=== PATIENT | female | born 1965 | race Caucasian/White ===

== ENCOUNTER 2016-07-08 18:18 | Inpatient (IN) | payer OTHER ==
[2016-07-08] VITALS (9 sets, daily range): BP systolic 123–157; BP diastolic 75–103; PULSE 98–112; RESP 14–22; TEMP 97.6–98.6; O2SAT 98–100
[~2016-07-08] VITALS: Ht 167.6 cm; Wt 58.7 kg
[~2016-07-08 18:18] MED LIST: ESCI10TA PO; PRIL20CA PO; QUET200 PO; QUET25 PO; TRAZ100 PO
[2016-07-08] MEDS ORDERED: PROPOFOL 1000 MG/100 ML INJ 100 ML ONE (18:37)
--- NOTE | 2016-07-08 18:38 | PD ---
HPI Chief Complaint: Altered Mental Status Time Seen by Provider: 18:30 Travel History International Travel<30 days: No Contact w/Intl Traveler<30days: No Traveled to known affect area: No History of Present Illness HPI Niesha jackson was brought in by EVAC with AMS. Pt was found lying on bench outside [facility]. Pt unresponsive to voice or sternal rub. Did not withdraw from pain in extremities. No signs of trauma but cervical spine collar placed by fire as precaution. Pt given 0.4mg of narcan by EVAC with no response. I gave another 0.4mg of narcan and still with no response. Pt emergently intubated in the ED. PFSH Past Medical History Medical History: Unable to Obtain Tetanus Vaccination: Unknown Past Surgical History Surgical History: Unable to Obtain Social History Alcohol Use: Yes Tobacco Use: Yes Substance Use: No Allergies-Medications (Allergen,Severity, Reaction): Coded Allergies: UNOBTAINABLE (Unverified , 07/08/16) Reported Meds & Prescriptions Reported Meds & Active Scripts Active Active Prescriptions or Reported Medications Unobtainable Review of Systems ROS Limitations: Unresponsive Physical Exam Narrative GENERAL: Unresponsive. +Alcohol on breath. SKIN: Warm and dry. HEAD: Atraumatic. Normocephalic. EYES: Pupils equal and round at 4mm bilaterally. ENT: No nasal bleeding or discharge. Mucous membranes pink and moist. NECK: Trachea midline. No JVD. CARDIOVASCULAR: Regular rate and rhythm. No murmur appreciated. RESPIRATORY: No accessory muscle use. Clear to auscultation. Breath sounds equal bilaterally. GASTROINTESTINAL: Abdomen soft, non-tender, nondistended. No rebound tenderness or guarding. MUSCULOSKELETAL: No obvious deformities. No clubbing. No cyanosis. No edema. NEUROLOGICAL: Unresponsive but teeth is clenching down. GCS 3. Data Data Last Documented VS Vital Signs Date Time Temp Pulse Resp B/P Pulse Ox O2 Delivery O2 Flow Rate FiO2 07/08/16 20:31 100 40 07/08/16 18:20 97.6 112 16 152/96 Orders Electrocardiogram (07/08/16 18:31) Alcohol (Ethanol) (07/08/16 18:31) Ammonia (07/08/16 18:31) Complete Blood Count With Diff (07/08/16 18:31) Comprehensive Metabolic Panel (07/08/16 18:31) Creatine Kinase (Cpk) (07/08/16 18:31) Drug Screen, Random Urine (07/08/16 18:31) Prothrombin Time / Inr (Pt) (07/08/16 18:31) Act Partial Throm Time (Ptt) (07/08/16 18:31) Salicylates (Aspirin) (07/08/16 18:31) Troponin I (07/08/16 18:31) Tylenol (Acetaminophen) (07/08/16 18:31) Thyroid Stimulating Hormone (07/08/16 18:31) Lactic Acid Sepsis Protocol (07/08/16 18:31) Urinalysis - C+S If Indicated (07/08/16 18:31) Arterial Blood Gas (Abg) (07/08/16 18:31) Blood Culture (07/08/16 18:31) Chest, Single Ap (07/08/16 18:31) Ct Brain W/O Iv Contrast(Rout) (07/08/16 18:31) Blood Glucose (07/08/16 18:31) Ecg Monitoring (07/08/16 18:31) Iv Access Insert/Monitor (07/08/16 18:31) Oximetry (07/08/16 18:31) Ct Cerv Spine W/O Contrast (07/08/16 ) Propofol 1000 Mg/100 Ml Inj (Diprivan 10 (07/08/16 18:37) Naloxone Inj (Narcan Inj) (07/08/16 18:53) Etomidate Inj (Amidate Inj) (07/08/16 18:53) Succinylcholine Inj (Quelicin Inj) (07/08/16 18:53) Succinylcholine Inj (Quelicin Inj) (07/08/16 19:00) Etomidate Inj (Amidate Inj) (07/08/16 19:00) Naloxone Inj (Narcan Inj) (07/08/16 19:00) Urinary Catheter Insert/Apply (07/08/16 18:59) Glen-Gastric Tube Insert/Mon (07/08/16 18:59) Restraints Non-Violent MAXIMO.Q3H (07/08/16 18:59) Propofol 1000 Mg/100 Ml Inj (Diprivan 10 (07/08/16 19:00) ^ Infusion (07/08/16 18:59) RASS (07/08/16 18:59) Neurological Rass Scale MAXIMO.Q2H (07/08/16 18:59) Sodium Chlor 0.9% 1000 Ml Inj (Ns 1000 M (07/08/16 19:15) Urine Culture (07/08/16 18:35) Admit Order (Ed Use Only) (07/08/16 20:48) Labs Laboratory Tests Test 07/08/16 07/08/16 18:35 18:44 White Blood Count 9.5 TH/MM3 Red Blood Count 4.58 MIL/MM3 Hemoglobin 12.4 GM/DL Hematocrit 37.5 % Mean Corpuscular Volume 82.0 FL Mean Corpuscular Hemoglobin 27.0 PG Mean Corpuscular Hemoglobin 33.0 % Concent Red Cell Distribution Width 20.2 % Platelet Count 442 TH/MM3 Mean Platelet Volume 6.7 FL Neutrophils (%) (Auto) 57.1 % Lymphocytes (%) (Auto) 35.0 % Monocytes (%) (Auto) 5.2 % Eosinophils (%) (Auto) 2.2 % Basophils (%) (Auto) 0.5 % Neutrophils # (Auto) 5.4 TH/MM3 Lymphocytes # (Auto) 3.3 TH/MM3 Monocytes # (Auto) 0.5 TH/MM3 Eosinophils # (Auto) 0.2 TH/MM3 Basophils # (Auto) 0.0 TH/MM3 CBC Comment DIFF FINAL Differential Comment Prothrombin Time 11.4 SEC Prothromb Time International 1.0 RATIO Ratio Activated Partial 25.0 SEC Thromboplast Time Urine Color YELLOW Urine Turbidity CLEAR Urine pH 6.0 Urine Specific [place] 1.012 Urine Protein 30 mg/dL Urine Glucose (UA) NEG mg/dL Urine Ketones NEG mg/dL Urine Occult Blood NEG Urine Nitrite NEG Urine Bilirubin NEG Urine Urobilinogen LESS THAN 2.0 MG/DL Urine Leukocyte Esterase SMALL Urine WBC 4 /hpf Urine Bacteria RARE /hpf Microscopic Urinalysis Comment CATH-CULTURE IND Sodium Level 141 MEQ/L Potassium Level 3.4 MEQ/L Chloride Level 106 MEQ/L Carbon Dioxide Level 21.8 MEQ/L Anion Gap 13 MEQ/L Blood Urea Nitrogen 5 MG/DL Creatinine 0.67 MG/DL Estimat Glomerular Filtration 76 ML/MIN Rate Random Glucose 108 MG/DL Lactic Acid Level 3.8 mmol/L Calcium Level 7.2 MG/DL Protein Corrected Calcium 7.4 MG/DL Total Bilirubin 0.1 MG/DL Aspartate Amino Transf 44 U/L (AST/SGOT) Alanine Aminotransferase 38 U/L (ALT/SGPT) Alkaline Phosphatase 91 U/L Ammonia 38 MCMOL/L Total Creatine Kinase 153 U/L Troponin I LESS THAN 0.02 NG/ML Total Protein 6.8 GM/DL Albumin 3.1 GM/DL Thyroid Stimulating Hormone 1.040 uIU/ML 3rd Gen Salicylates Level 3.8 MG/DL Urine Opiates Screen NEG Acetaminophen Level LESS THAN 2.0 MCG/ML Urine Barbiturates Screen NEG Urine Amphetamines Screen NEG Urine Benzodiazepines Screen NEG Urine Cocaine Screen NEG Urine Cannabinoids Screen NEG Ethyl Alcohol Level 465 MG/DL Blood Gas Puncture Site LT RADIAL Blood Gas Patient Temperature 98.6 Blood Gas HCO3 20 mmol/L Blood Gas Base Excess -4.6 mmol/L Blood Gas Oxygen Saturation 80 % Arterial Blood pH 7.32 Arterial Blood Partial 41 mmHg Pressure CO2 Arterial Blood Partial 72 mmHG Pressure O2 Arterial Blood Oxygen Content 13.5 Vol % Arterial Blood 7.6 % Carboxyhemoglobin Arterial Blood Methemoglobin 2.0 % Blood Gas Hemoglobin 12.0 G/DL Oxygen Delivery Device VENTILATOR Blood Gas Ventilator Setting AC/14/450/PEEP5 Blood Gas Inspired Oxygen 40 % MDM Medical Decision Making Medical Screen Exam Complete: Yes Emergency Medical Condition: Yes Interpretation(s) EKG: Sinus tachycardia at 112bpm. Normal axis. QRS narrow. QTc 398ms. Differential Diagnosis Polysubstance abuse vs. alcohol intoxication vs. ICH Narrative Course Niesha Jackson brought in with AMS by EVAC, emergently intubated in the ED. Pt had half bottle of purell on her and smelled of alcohol. Pt was initially mildly tachycardic. She was given narcan 0.4mg by EVAC and again in the ED with no response. No response to painful stimuli. +Alcohol on breath. Pt was clenching her teeth so RSI was used to intubate. Pt was seen at end of my shift and sign out to the next team to follow up labs and admit to ICU. Critical Care Narrative Aggregate critical care time was 35 minutes. Time to perform other separately billable procedures was not included in the critical care time. My time did not include minutes spent treating any other patients simultaneously or on activities that did not directly contribute to the patient's treatment. The services I provided to this patient were to treat and/or prevent clinically significant deterioration that could result in: cardiovascular collapse or . I provided critical care services requiring my management, as noted below: Chart data review, documentation time, medication orders and management, vital sign assessments/reviewing monitor data, ordering and reviewing lab tests, ordering and interpreting/reviewing x-rays and diagnostic studies, care of the patient and discussion of the patient with the admitting physicians. Procedures Procedure Narrative The patient was put in optimal position for the procedure. Rapid sequence intubation was initiated by me using 20 milligrams of etomidate IV and 100 milligrams of succinylcholine IV. The patient was intubated with a 7.5 cuffed endotracheal tube using glidescope. Oropharynx noted to be edematous and initially attempted with 8.0 ET tube but unsuccessful in passing the tube so 7.5 was used after. Tube placement was confirmed by visualization of the tube and balloon passing through the cords, capnometry and subsequent chest x-ray. Breath sounds were equal and well aerated bilaterally postintubation. No breath sounds over stomach. Patient tolerated procedure well. Scripts Unable to Obtain Active Prescriptions or Reported Meds Maribel Moon DO Jul 08, 2016 18:38
[2016-07-08] MEDS ORDERED: SUCCINYLCHOLINE CHLORIDE 200 MG/10 ML VIAL ONE (18:53)
[2016-07-08] MEDS ORDERED: NALOXONE HCL 0.4 MG/ML AMP ONE (18:53)
[2016-07-08] MEDS ORDERED: ETOMIDATE 20 MG/10 ML VIAL ONE (18:53)
[2016-07-08 18:56] LABS: BLOOD GAS BASE EXCESS -4.6 mmol/L (-2-2); BLOOD GAS CARBOXYHEMOGLOBIN 7.6 % (0-4); BLOOD GAS HCO3 20 mmol/L (22-26); BLOOD GAS O2 HGB SATURATION 80 % (90-100); BLOOD GAS OXYGEN CONTENT 13.5 Vol % (12.0-20.0); BLOOD GAS PCO2 41 mmHg (38-42); BLOOD GAS PO2 72 mmHG (61-120); TEMP CORR TO 98.6
[2016-07-08 18:57] LABS: CRITICAL VALUE YES; DRAW SITE LT RADIAL; FIO2 40 %; NUMBER OF ARTERIAL PUNCTURES 1; OXYGEN DEVICE VENTILATOR; STAT YES; ULNAR PULSE PRESENT; VENT SETTINGS AC/14/450/PEEP5
[2016-07-08] MEDS ORDERED: SUCCINYLCHOLINE CHLORIDE 200 MG/10 ML VIAL IV PUSH ONE (19:00)
[2016-07-08] MEDS ORDERED: ETOMIDATE 20 MG/10 ML VIAL IV PUSH ONE (19:00)
[2016-07-08] MEDS ORDERED: PROPOFOL 1000 MG/100 ML INJ 100 ML IV SCH (19:00)
[2016-07-08] MEDS ORDERED: NALOXONE HCL 0.4 MG/ML AMP IV PUSH ONE (19:00)
[2016-07-08] MEDS ORDERED: SODIUM CHLOR 0.9% 1000 ML INJ 1,000 ML IV ONE (19:15)
[2016-07-08 19:23] LABS: AUTOMATED NEUTROPHIL # 5.4 TH/MM3 (1.8-7.7); BASOPHIL % 0.5 % (0.0-2.0); EOSINOPHIL # 0.2 TH/MM3 (0-0.4); EOSINOPHIL % 2.2 % (0.0-4.0); HEMATOCRIT 37.5 % (35.0-46.0); HEMO FLAGS DIFF FINAL; LYMPHOCYTE # 3.3 TH/MM3 (1.0-4.8); MONO % 5.2 % (0.0-8.0); NEUT % 57.1 % (16.0-70.0); PLATELET COUNT 442 TH/MM3 (150-450); RED BLOOD COUNT 4.58 MIL/MM3 (4.00-5.30); RED CELL DISTRIBUTION WIDTH 20.2 % (11.6-17.2); WHITE BLOOD COUNT 9.5 TH/MM3 (4.0-11.0)
--- NOTE | 2016-07-08 19:32 | PD ---
Physical Exam Date Seen by Provider: Jul 08, 2016 Time Seen by Provider: 19:29 Narrative Patient is a unknown age female who presents to the emergency department after being found on a bench at [facility]. The patient did have a bottle of [place] hand sporting goods salesperson that was approximately half full on scene. Upon arrival the patient was intubated using etomidate and succinylcholine, was noted the patient had a slightly swollen oropharynx with a difficult intubation and also had chemosis of the eyes. The patient has has some spontaneous movement per nursing staff, however, does not result in pain. The patient is currently on propofol. No further information is obtainable. Patient was initially evaluated by Dr. Moon, please refer to the initial history, physical, diagnostic evaluation, and treatment modality plan. Data Data Last Documented VS Vital Signs Date Time Temp Pulse Resp B/P Pulse Ox O2 Delivery O2 Flow Rate FiO2 07/08/16 19:30 100 100 07/08/16 18:20 97.6 112 16 152/96 Orders Electrocardiogram (07/08/16 18:31) Alcohol (Ethanol) (07/08/16 18:31) Ammonia (07/08/16 18:31) Complete Blood Count With Diff (07/08/16 18:31) Comprehensive Metabolic Panel (07/08/16 18:31) Creatine Kinase (Cpk) (07/08/16 18:31) Drug Screen, Random Urine (07/08/16 18:31) Prothrombin Time / Inr (Pt) (07/08/16 18:31) Act Partial Throm Time (Ptt) (07/08/16 18:31) Salicylates (Aspirin) (07/08/16 18:31) Troponin I (07/08/16 18:31) Tylenol (Acetaminophen) (07/08/16 18:31) Thyroid Stimulating Hormone (07/08/16 18:31) Lactic Acid Sepsis Protocol (07/08/16 18:31) Urinalysis - C+S If Indicated (07/08/16 18:31) Arterial Blood Gas (Abg) (07/08/16 18:31) Blood Culture (07/08/16 18:31) Chest, Single Ap (07/08/16 18:31) Ct Brain W/O Iv Contrast(Rout) (07/08/16 18:31) Blood Glucose (07/08/16 18:31) Ecg Monitoring (07/08/16 18:31) Iv Access Insert/Monitor (07/08/16 18:31) Oximetry (07/08/16 18:31) Ct Cerv Spine W/O Contrast (07/08/16 ) Propofol 1000 Mg/100 Ml Inj (Diprivan 10 (07/08/16 18:37) Naloxone Inj (Narcan Inj) (07/08/16 18:53) Etomidate Inj (Amidate Inj) (07/08/16 18:53) Succinylcholine Inj (Quelicin Inj) (07/08/16 18:53) Succinylcholine Inj (Quelicin Inj) (07/08/16 19:00) Etomidate Inj (Amidate Inj) (07/08/16 19:00) Naloxone Inj (Narcan Inj) (07/08/16 19:00) Urinary Catheter Insert/Apply (07/08/16 18:59) Glen-Gastric Tube Insert/Mon (07/08/16 18:59) Restraints Non-Violent MAXIMO.Q3H (07/08/16 18:59) Propofol 1000 Mg/100 Ml Inj (Diprivan 10 (07/08/16 19:00) ^ Infusion (07/08/16 18:59) RASS (07/08/16 18:59) Neurological Rass Scale MAXIMO.Q2H (07/08/16 18:59) Sodium Chlor 0.9% 1000 Ml Inj (Ns 1000 M (07/08/16 19:15) Urine Culture (07/08/16 18:35) Labs Laboratory Tests Test 07/08/16 07/08/16 18:35 18:44 White Blood Count 9.5 TH/MM3 Red Blood Count 4.58 MIL/MM3 Hemoglobin 12.4 GM/DL Hematocrit 37.5 % Mean Corpuscular Volume 82.0 FL Mean Corpuscular Hemoglobin 27.0 PG Mean Corpuscular Hemoglobin 33.0 % Concent Red Cell Distribution Width 20.2 % Platelet Count 442 TH/MM3 Mean Platelet Volume 6.7 FL Neutrophils (%) (Auto) 57.1 % Lymphocytes (%) (Auto) 35.0 % Monocytes (%) (Auto) 5.2 % Eosinophils (%) (Auto) 2.2 % Basophils (%) (Auto) 0.5 % Neutrophils # (Auto) 5.4 TH/MM3 Lymphocytes # (Auto) 3.3 TH/MM3 Monocytes # (Auto) 0.5 TH/MM3 Eosinophils # (Auto) 0.2 TH/MM3 Basophils # (Auto) 0.0 TH/MM3 CBC Comment DIFF FINAL Differential Comment Prothrombin Time 11.4 SEC Prothromb Time International 1.0 RATIO Ratio Activated Partial 25.0 SEC Thromboplast Time Urine Color YELLOW Urine Turbidity CLEAR Urine pH 6.0 Urine Specific [place] 1.012 Urine Protein 30 mg/dL Urine Glucose (UA) NEG mg/dL Urine Ketones NEG mg/dL Urine Occult Blood NEG Urine Nitrite NEG Urine Bilirubin NEG Urine Urobilinogen LESS THAN 2.0 MG/DL Urine Leukocyte Esterase SMALL Urine WBC 4 /hpf Urine Bacteria RARE /hpf Microscopic Urinalysis Comment CATH-CULTURE IND Sodium Level 141 MEQ/L Potassium Level 3.4 MEQ/L Chloride Level 106 MEQ/L Carbon Dioxide Level 21.8 MEQ/L Anion Gap 13 MEQ/L Blood Urea Nitrogen 5 MG/DL Creatinine 0.67 MG/DL Estimat Glomerular Filtration 76 ML/MIN Rate Random Glucose 108 MG/DL Lactic Acid Level 3.8 mmol/L Calcium Level 7.2 MG/DL Protein Corrected Calcium 7.4 MG/DL Total Bilirubin 0.1 MG/DL Aspartate Amino Transf 44 U/L (AST/SGOT) Alanine Aminotransferase 38 U/L (ALT/SGPT) Alkaline Phosphatase 91 U/L Ammonia 38 MCMOL/L Total Creatine Kinase 153 U/L Troponin I LESS THAN 0.02 NG/ML Total Protein 6.8 GM/DL Albumin 3.1 GM/DL Thyroid Stimulating Hormone 1.040 uIU/ML 3rd Gen Salicylates Level 3.8 MG/DL Urine Opiates Screen NEG Acetaminophen Level LESS THAN 2.0 MCG/ML Urine Barbiturates Screen NEG Urine Amphetamines Screen NEG Urine Benzodiazepines Screen NEG Urine Cocaine Screen NEG Urine Cannabinoids Screen NEG Ethyl Alcohol Level 465 MG/DL Blood Gas Puncture Site LT RADIAL Blood Gas Patient Temperature 98.6 Blood Gas HCO3 20 mmol/L Blood Gas Base Excess -4.6 mmol/L Blood Gas Oxygen Saturation 80 % Arterial Blood pH 7.32 Arterial Blood Partial 41 mmHg Pressure CO2 Arterial Blood Partial 72 mmHG Pressure O2 Arterial Blood Oxygen Content 13.5 Vol % Arterial Blood 7.6 % Carboxyhemoglobin Arterial Blood Methemoglobin 2.0 % Blood Gas Hemoglobin 12.0 G/DL Oxygen Delivery Device VENTILATOR Blood Gas Ventilator Setting AC/14/450/PEEP5 Blood Gas Inspired Oxygen 40 % [facility] Medical Record Reviewed: Yes Supervised Visit with MINESH: No Interpretation(s) Last Impressions Head CT 07/08/161830 Signed Impressions: Service Date/Time: Friday, July 08, 2016 19:35 - CONCLUSION: No acute intracranial disease. Stanislaw Yanez MD Chest X-Ray 07/08/161 Signed Impressions: Service Date/Time: Friday, July 08, 2016 19:04 - CONCLUSION: Endotracheal tube 1 cm above the neville. Clear lungs. Stanislaw Yanez MD Cervical Spine CT 07/08/16 0000 Signed Impressions: Service Date/Time: Friday, July 08, 2016 19:35 - CONCLUSION: No acute fracture or subluxation. Minimal fracture along the superior endplate at T1 appears old. Stanislaw Yanez MD Laboratory Tests Test 07/08/16 07/08/16 18:35 18:44 White Blood Count 9.5 TH/MM3 Red Blood Count 4.58 MIL/MM3 Hemoglobin 12.4 GM/DL Hematocrit 37.5 % Mean Corpuscular Volume 82.0 FL Mean Corpuscular Hemoglobin 27.0 PG Mean Corpuscular Hemoglobin 33.0 % Concent Red Cell Distribution Width 20.2 % Platelet Count 442 TH/MM3 Mean Platelet Volume 6.7 FL Neutrophils (%) (Auto) 57.1 % Lymphocytes (%) (Auto) 35.0 % Monocytes (%) (Auto) 5.2 % Eosinophils (%) (Auto) 2.2 % Basophils (%) (Auto) 0.5 % Neutrophils # (Auto) 5.4 TH/MM3 Lymphocytes # (Auto) 3.3 TH/MM3 Monocytes # (Auto) 0.5 TH/MM3 Eosinophils # (Auto) 0.2 TH/MM3 Basophils # (Auto) 0.0 TH/MM3 CBC Comment DIFF FINAL Differential Comment Prothrombin Time 11.4 SEC Prothromb Time International 1.0 RATIO Ratio Activated Partial 25.0 SEC Thromboplast Time Urine Color YELLOW Urine Turbidity CLEAR Urine pH 6.0 Urine Specific [place] 1.012 Urine Protein 30 mg/dL Urine Glucose (UA) NEG mg/dL Urine Ketones NEG mg/dL Urine Occult Blood NEG Urine Nitrite NEG Urine Bilirubin NEG Urine Urobilinogen LESS THAN 2.0 MG/DL Urine Leukocyte Esterase SMALL Urine WBC 4 /hpf Urine Bacteria RARE /hpf Microscopic Urinalysis Comment CATH-CULTURE IND Sodium Level 141 MEQ/L Potassium Level 3.4 MEQ/L Chloride Level 106 MEQ/L Carbon Dioxide Level 21.8 MEQ/L Anion Gap 13 MEQ/L Blood Urea Nitrogen 5 MG/DL Creatinine 0.67 MG/DL Estimat Glomerular Filtration 76 ML/MIN Rate Random Glucose 108 MG/DL Lactic Acid Level 3.8 mmol/L Calcium Level 7.2 MG/DL Protein Corrected Calcium 7.4 MG/DL Total Bilirubin 0.1 MG/DL Aspartate Amino Transf 44 U/L (AST/SGOT) Alanine Aminotransferase 38 U/L (ALT/SGPT) Alkaline Phosphatase 91 U/L Ammonia 38 MCMOL/L Total Creatine Kinase 153 U/L Troponin I LESS THAN 0.02 NG/ML Total Protein 6.8 GM/DL Albumin 3.1 GM/DL Thyroid Stimulating Hormone 1.040 uIU/ML 3rd Gen Salicylates Level 3.8 MG/DL Urine Opiates Screen NEG Acetaminophen Level LESS THAN 2.0 MCG/ML Urine Barbiturates Screen NEG Urine Amphetamines Screen NEG Urine Benzodiazepines Screen NEG Urine Cocaine Screen NEG Urine Cannabinoids Screen NEG Ethyl Alcohol Level 465 MG/DL Blood Gas Puncture Site LT RADIAL Blood Gas Patient Temperature 98.6 Blood Gas HCO3 20 mmol/L Blood Gas Base Excess -4.6 mmol/L Blood Gas Oxygen Saturation 80 % Arterial Blood pH 7.32 Arterial Blood Partial 41 mmHg Pressure CO2 Arterial Blood Partial 72 mmHG Pressure O2 Arterial Blood Oxygen Content 13.5 Vol % Arterial Blood 7.6 % Carboxyhemoglobin Arterial Blood Methemoglobin 2.0 % Blood Gas Hemoglobin 12.0 G/DL Oxygen Delivery Device VENTILATOR Blood Gas Ventilator Setting AC/14/450/PEEP5 Blood Gas Inspired Oxygen 40 % Differential Diagnosis Differential diagnosis includes drug ingestion, opiate overdose, alcohol ingestion, intracranial hemorrhage, allergic reaction, hyponatremia, encephalopathy Narrative Course Patient was initially evaluated by the previous physician, Dr. Moon. Please refer to the initial history, physical, diagnostic evaluation, treatment modality plan. Poison control will be contacted in regards to the patient's possible hand sporting goods salesperson ingestion. CT of the brain is negative, CT cervical spine reveals old fracture and plate T1, most likely chronic. Alcohol level is elevated at 465, anion gap is normal at 13, lactic is elevated at 3.8. The patient is intubated with edema in the oropharynx and chemosis of the eyes. I discussed the patient with the on-call ship erector, Dr. Denny, who agrees with admission. Poison control will be contacted in regards to isopropyl alcohol ingestion Physician Communication Physician Communication I discussed the patient with Dr. Denny who agrees with admission. Diagnosis Primary Impression: Alcohol intoxication delirium Admitting Information Admitting Physician Requests: Admit Scripts Unable to Obtain Active Prescriptions or Reported Meds Condition: Critical Dawit Nolasco MD Jul 08, 2016 19:31
[2016-07-08 19:35] LABS: PROTHROMBIN TIME - PATIENT 11.4 SEC (9.8-11.6)
--- NOTE | 2016-07-08 19:38 | RADRPT ---
EXAM DATE/TIME: 07/08/2016 19:04 [facility] COMPARISON: No previous studies available for comparison. INDICATIONS : Post intubation. Patient found unresponsive. MEDICAL HISTORY : Unobtainable. SURGICAL HISTORY : Unobtainable. ENCOUNTER: Initial ACUITY: 1 day PAIN SCORE: Non-responsive. LOCATION: Bilateral chest FINDINGS: A single view of the chest demonstrates the lungs to be symmetrically aerated without evidence of mas s, infiltrate or effusion. Endotracheal tube with tip 1 cm above the neville. Nasogastric tube with t ip likely in stomach The cardiomediastinal contours are unremarkable. Osseous structures are intact. CONCLUSION: Endotracheal tube 1 cm above the neville. Clear lungs. Stanislaw Yanez MD on July 08, 2016 at 19:36 Board Certified Radiologist. This report was verified electronically.
[2016-07-08 19:40] LABS: BACTERIA, URINE RARE /hpf; BLOOD, URINE NEG (NEG); GLUCOSE,URINE NEG (NEG); KETONE, URINE NEG (NEG); NITRITE,URINE NEG (NEG); URINE COLOR YELLOW (YELLW/STRAW)
[2016-07-08 19:41] LABS: COMMENT (UR) CATH-CULTURE IND; CULTURE IF INDICATED CATH CULTURE IND
[2016-07-08 19:45] LABS: AMPHETAMINE, URINE NEG (NEG); BARBITURATES, URINE NEG (NEG); COCAINE, URINE NEG (NEG)
--- NOTE | 2016-07-08 19:45 | RADRPT ---
EXAM DATE/TIME: 07/08/2016 19:35 [facility] COMPARISON: No previous studies available for comparison. INDICATIONS : Found unresponsive RADIATION DOSE: 46.24 CTDIvol (mGy) MEDICAL HISTORY : Non-responsive. SURGICAL HISTORY : Non-responsive. ENCOUNTER: Initial ACUITY: 1 day PAIN SCALE: Non-responsive LOCATION: cranial TECHNIQUE: Multiple contiguous axial images were obtained of the head. Using automated exposure control and adj ustment of the mA and/or kV according to patient size, radiation dose was kept as low as reasonably a chievable to obtain optimal diagnostic quality images. FINDINGS: CEREBRUM: The ventricles are normal for age. No evidence of midline shift, mass lesion, hemorrhage or acute in farction. No extra-axial fluid collections are seen. POSTERIOR FOSSA: The cerebellum and brainstem are intact. The 4th ventricle is midline. The cerebellopontine angle i s unremarkable. EXTRACRANIAL: The visualized portion of the orbits is intact. SKULL: The calvaria is intact. No evidence of skull fracture. CONCLUSION: No acute intracranial disease. Stanislaw Yanez MD on July 08, 2016 at 19:44 Board Certified Radiologist. This report was verified electronically.
--- NOTE | 2016-07-08 20:03 | RADRPT ---
EXAM DATE/TIME: 07/08/2016 19:35 [facility] COMPARISON: No previous studies available for comparison. INDICATIONS : Found unresponsive. RADIATION DOSE: 42.99 CTDIvol (mGy) MEDICAL HISTORY : Non-responsive. SURGICAL HISTORY : Non-responsive. ENCOUNTER: Initial ACUITY: 1 day PAIN SCALE: Non-responsive LOCATION: neck TECHNIQUE: Volumetric scanning of the cervical spine was performed. Multiplanar reconstructions in the sagittal, coronal and oblique axial planes were performed. Using automated exposure control and adjustment o f the mA and/or kV according to patient size, radiation dose was kept as low as reasonably achievable to obtain optimal diagnostic quality images. FINDINGS: VERTEBRAE: Normal vertebral body height. No acute compression fracture. Minimal loss of height of T1 appears to be chronic. ALIGNMENT: No evidence of subluxation. CONCLUSION: No acute fracture or subluxation. Minimal fracture along the superior endplate at T1 appears old. Stanislaw Yanez MD on July 08, 2016 at 19:59 Board Certified Radiologist. This report was verified electronically.
[2016-07-08 20:14] LABS: BLOOD UREA NITROGEN 5 MG/DL (7-18)
[2016-07-08 20:15] LABS: ALKALINE PHOSPHATASE 91 U/L (45-117); ALT (GPT) 38 U/L (10-53); AST (GOT) 44 U/L (15-37); CHLORIDE 106 MEQ/L (98-107); GLOMERULAR FILTRATION RATE 76 ML/MIN (>89); POTASSIUM 3.4 MEQ/L (3.5-5.1); SODIUM (NA) 141 MEQ/L (136-145); TOTAL BILIRUBIN ADULT 0.1 MG/DL (0.2-1.0)
[2016-07-08 20:16] LABS: ACETAMINOPHEN LESS THAN 2.0 MCG/ML (10.0-30.0); ANION GAP 13 MEQ/L (5-15); BICARBONATE 21.8 MEQ/L (21.0-32.0); CREATINE KINASE 153 U/L (26-192)
[2016-07-08 20:19] LABS: CALCIUM-PROTEIN CORRECTED 7.4 MG/DL (8.5-10.1)
[2016-07-08 21:11] LABS: LACTIC ACID GHOST NOT REPORTABLE
[2016-07-08] MEDS ORDERED: MISCELLANEOUS NURSING INFORMATION XX SCH (21:30)
[2016-07-08] MEDS ORDERED: POTASSIUM CHLOR 40 MEQ PREMIX 100 ML IV PRN ×2 (21:30)
[2016-07-08] MEDS ORDERED: SODIUM CHLORIDE 0.9% FLUSH 5 ML FLUSH IV FLUSH PRN (21:30)
[2016-07-08] MEDS ORDERED: POTASSIUM CHLOR 20 MEQ PREMIX 100 ML IV PRN (21:30)
[2016-07-08] MEDS ORDERED: MAGNESIUM SULFATE INJ 4 GM in SODIUM CHLORIDE 0.9% INJ 92 ML IV PRN (21:30)
[2016-07-08] MEDS ORDERED: MAGNESIUM OXIDE 400 MG TAB PO PRN (21:30)
[2016-07-08] MEDS ORDERED: POTASSIUM PHOSPHATE INJ 30 MMOL in SODIUM CHLOR 0.9% 250 ML INJ 250 ML IV PRN (21:30)
[2016-07-08] MEDS ORDERED: SODIUM PHOSPHATE INJ 30 MMOL in SODIUM CHLOR 0.9% 250 ML INJ 240 ML IV PRN (21:30)
[2016-07-08] MEDS ORDERED: POTASSIUM CL 40 MEQ/30 ML LIQ UDC PO/TUBE PRN ×2 (21:30)
[2016-07-08] MEDS ORDERED: fentaNYL DRIP 250 ML IV SCH (21:30)
[2016-07-08] MEDS ORDERED: POTASSIUM PHOSPHATE MONOBASIC 500 MG TAB PO/TUBE PRN (21:30)
[2016-07-08] MEDS ORDERED: MAGNESIUM SULFATE INJ 2 GM in SODIUM CHLORIDE 0.9% INJ 96 ML IV PRN (21:30)
[2016-07-08] MEDS ORDERED: POTASSIUM PHOSPHATE MONOBASIC 500 MG TAB PO PRN (21:30)
[2016-07-08] MEDS ORDERED: CHLORHEXIDINE GLUCONATE 2 % 1 PACK (2 CLOTHS) TOP PRN (21:30)
[2016-07-08] MEDS ORDERED: RESP: ALBUTEROL 2.5 MG/IPRATROPIUM 0.5 MG NEB (PRN) INH (21:30)
[2016-07-08] MEDS ORDERED: ONDANSETRON HCL 4 MG/2 ML VIAL IV PRN (21:30)
[2016-07-08] MEDS ORDERED: DEXTROSE 50% IN WATER 50 ML VIAL(D50) IV PUSH PRN (21:30)
--- NOTE | 2016-07-08 21:30 | HHI.HP ---
HPI Service Critical Care Medicine Primary Care Physician Unknown Admission Diagnosis alcohol intoxication 465 alcohol level Diagnosis: Chief Complaint: altered mental status Travel History International Travel<30 Days: No Contact w/Intl Traveler <30 Da: No Traveled to Known Affected Are: No History of Present Illness This is a middle-aged female Niesha Jackson who is brought in by EMS for altered mental status. Per reports patient was found unresponsive lying on a bench outside [facility]. Her mental status did not improve with a trial of Narcan. 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 Of note she had an initial lactate of 3 and an ethanol level of 465. We have nothing else about the patient. She was intubated for hypoxia and hypercarbia as well as airway protection. Critical care medicine is been consulted to evaluate and manage her presumed toxic encephalopathy, ethanol overdose, possible isopropyl alcohol ingestion. We've spoken with poison control multiple times. We have sent off labs. Her osmolar gap is 18. Her anion gap is normal. There are no crystals in her urine by microscopy. Poison control has cleared her from an acute ingestion standpoint. They recommend repeat osmolar gap calculation midmorning. Review of Systems ROS Limitations: Clinical Condition, Intoxication, Intubated, Altered Mental Status Past Family Social History Allergies: Coded Allergies: UNOBTAINABLE (Unverified , 07/08/16) Past Medical History Unknown and unobtainable secondary to clinical condition. Past Surgical History Unknown and unobtainable secondary to clinical condition. Reported Medications Unknown and unobtainable secondary clinical condition Active Ordered Medications See MAR Family History Unknown unobtainable secondary to clinical condition Social History Unknown and unobtainable secondary to clinical condition. Clearly positive for alcohol. Physical Exam Vital Signs Vital Signs Date Time Temp Pulse Resp B/P Pulse Ox O2 Delivery O2 Flow Rate FiO2 07/08/16 20:31 100 40 07/08/16 19:30 100 100 07/08/16 18:36 99 40 07/08/16 18:20 97.6 112 16 152/96 98 Physical Exam GENERAL: Middle-aged female, lying in bed, intubated, critically ill HEENT: Pupils equal, round, reactive, conjugate.. Normocephalic Atraumatic. NECK: Trachea is midline. There is no JVD. CHEST: Equal chest rise. Intubated. Clear to auscultation. CARDIOVASCULAR: Normal rate, regular rhythm. No appreciable murmurs. ABDOMEN: Off, nontender, nondistended. No guarding. MUSCULOSKELETAL: No peripheral edema. Distal pulses 2+. NEUROLOGICAL: RASS -4. Does not follow commands. Laboratory Laboratory Tests Test 07/08/16 07/08/16 18:35 18:44 White Blood Count 9.5 Red Blood Count 4.58 Hemoglobin 12.4 Hematocrit 37.5 Mean Corpuscular Volume 82.0 Mean Corpuscular Hemoglobin 27.0 Mean Corpuscular Hemoglobin 33.0 Concent Red Cell Distribution Width 20.2 Platelet Count 442 Mean Platelet Volume 6.7 Neutrophils (%) (Auto) 57.1 Lymphocytes (%) (Auto) 35.0 Monocytes (%) (Auto) 5.2 Eosinophils (%) (Auto) 2.2 Basophils (%) (Auto) 0.5 Neutrophils # (Auto) 5.4 Lymphocytes # (Auto) 3.3 Monocytes # (Auto) 0.5 Eosinophils # (Auto) 0.2 Basophils # (Auto) 0.0 CBC Comment DIFF FINAL Differential Comment Prothrombin Time 11.4 Prothromb Time International 1.0 Ratio Activated Partial 25.0 Thromboplast Time Urine Color YELLOW Urine Turbidity CLEAR Urine pH 6.0 Urine Specific [place] 1.012 Urine Protein 30 Urine Glucose (UA) NEG Urine Ketones NEG Urine Occult Blood NEG Urine Nitrite NEG Urine Bilirubin NEG Urine Urobilinogen LESS THAN 2.0 Urine Leukocyte Esterase SMALL Urine WBC 4 Urine Bacteria RARE Microscopic Urinalysis Comment CATH-CULTURE IND Sodium Level 141 Potassium Level 3.4 Chloride Level 106 Carbon Dioxide Level 21.8 Anion Gap 13 Blood Urea Nitrogen 5 Creatinine 0.67 Estimat Glomerular Filtration 76 Rate Random Glucose 108 Lactic Acid Level 3.8 Calcium Level 7.2 Protein Corrected Calcium 7.4 Total Bilirubin 0.1 Aspartate Amino Transf 44 (AST/SGOT) Alanine Aminotransferase 38 (ALT/SGPT) Alkaline Phosphatase 91 Ammonia 38 Total Creatine Kinase 153 Troponin I LESS THAN 0.02 Total Protein 6.8 Albumin 3.1 Thyroid Stimulating Hormone 1.040 3rd Gen Salicylates Level 3.8 Urine Opiates Screen NEG Acetaminophen Level LESS THAN 2.0 Urine Barbiturates Screen NEG Urine Amphetamines Screen NEG Urine Benzodiazepines Screen NEG Urine Cocaine Screen NEG Urine Cannabinoids Screen NEG Ethyl Alcohol Level 465 Blood Gas Puncture Site LT RADIAL Blood Gas Patient Temperature 98.6 Blood Gas HCO3 20 Blood Gas Base Excess -4.6 Blood Gas Oxygen Saturation 80 Arterial Blood pH 7.32 Arterial Blood Partial 41 Pressure CO2 Arterial Blood Partial 72 Pressure O2 Arterial Blood Oxygen Content 13.5 Arterial Blood 7.6 Carboxyhemoglobin Arterial Blood Methemoglobin 2.0 Blood Gas Hemoglobin 12.0 Oxygen Delivery Device VENTILATOR Blood Gas Ventilator Setting AC/14/450/PEEP5 Blood Gas Inspired Oxygen 40 Date/Time Procedure Status Source Growth 07/08/16 18:55 Aerobic Blood Culture Received Blood Peripheral Pending 07/08/16 18:55 Anaerobic Blood Culture Received Blood Peripheral Pending 07/08/16 18:35 Urine Culture Received Urine Catheterized Urine Pending Result Diagram: 07/08/16 1835 07/08/16 1835 Assessment and Plan Assessment and Plan Assessment: This is a middle-aged female to a no found unresponsive at [facility] with severe ethanol toxicity and reported possible history of isopropyl alcohol ingestion. She remains critically ill. Plan by systems: Neurologic: Alcohol intoxication Possible isopropyl alcohol ingestion Toxic encephalopathy Propofol, fentanyl for sedation Goal RASS -2 Poison control following Every hour neuro checks Respiratory: Acute hypoxic and hypercarbic respiratory failure Vent bundle Head of bed 30 Low tidal volume ventilation targeting 6 cc/kg ideal body weight Nebs every 6 and every 2 when necessary Does not meet SBT criteria given severe altered mental status Wean FiO2 for goal SPO2 greater than 90% Cardiovascular: Continue telemetry Renal: Topete catheter for accurate I's and O's Every hour urine outputs -- Strict I/Os FEN/GI: Severely elevated serum osmolality Acute protein calorie malnutritionmild Hypokalemia Nothing by mouth Follow-up a.m. osm, etoh level, bmp ICU electrolyte protocol Daily BMP Maintenance fluids LR at 200 cc an hour Heme/ID: No infectious etiology suspected this time Daily CBC Endocrine: Hypoglycemia -- SSI, every 4 hours, medium scale D10 @ 30 cc an hour Prophylaxis: GI Prophylaxis Protonix 40 mg IV daily 24 hours DVT Prophylaxis -- SCDs Lovenox 40 mg subcutaneous every 24 hours Lines: Per 4 IVs Topete Dispo: Admitted to the ICU. She remains critically ill This patient remains critically ill with one or more organ systems which are or may become a threat to life. I have spent in excess of 51 minutes discontinuously in the care and management of this patient. This time is exclusive of procedures, and includes, but is not limited to, evaluation of the patient, review of the medical record, discussions with family, consultants, nursing staff, or respiratory therapy, and documentation in the medical record. Code Status Full Code Discussed Condition With Poison Control, ED physician, bedside RN Aditya Murphy MD Jul 08, 2016 21:30
[2016-07-08] MEDS: RESP: ALBUTEROL 2.5 MG/IPRATROPIUM 0.5 MG NEB (SCH) INH (22:24)
[2016-07-08] MEDS ORDERED: MULTIVITAMIN INJ 10 ML, THIAMINE INJ 100 MG, FOLIC ACID INJ 1 MG in SODIUM CHLOR 0.45% ... IV ONE (23:00)
[2016-07-08] MEDS: ENOXAPARIN SODIUM 40 MG/0.4 ML SYRINGE SQ SCH (23:55)
[2016-07-08] MEDS: LACTATED RINGER'S 1000 ML INJ 1,000 ML IV SCH (23:55)
[2016-07-08] MEDS: DEXTROSE 10% INJ 1,000 ML IV SCH (23:55)
[2016-07-09] VITALS (20 sets, daily range): BP systolic 95–151; BP diastolic 57–81; PULSE 70–104; RESP 11–15; TEMP 97.5–98.3; O2SAT 95–100
[2016-07-09 00:03] LABS: BACTERIA, URINE MANY /hpf; BLOOD, URINE NEG (NEG); GLUCOSE,URINE NEG (NEG); HYALINE CAST, URINE 1 /lpf (RARE); KETONE, URINE NEG (NEG); MUCUS URINE FEW /lpf (OCC); NITRITE,URINE NEG (NEG); SQUAMOUS EPITHELIAL CELL URINE <1 /hpf (0-5); URINE COLOR LIGHT-YELLOW (YELLW/STRAW)
[2016-07-09 00:06] LABS: COMMENT (UR) CATH
[2016-07-09 00:22] LABS: BICARBONATE 24.1 MEQ/L (21.0-32.0); POTASSIUM 3.2 MEQ/L (3.5-5.1)
[2016-07-09 00:57] LABS: CALCIUM-PROTEIN CORRECTED 7.7 MG/DL (8.5-10.1); CKMB 1.7 NG/ML (0.5-3.6)
[2016-07-09] MEDS: PROPOFOL 1000 MG/100 ML INJ 100 ML IV SCH ×3 (02:00→11:50)
[2016-07-09] MEDS: THIAMINE INJ 100 MG in SODIUM CHLORIDE 0.9% INJ 100 ML IV SCH (02:00)
[2016-07-09] MEDS: LACTATED RINGER'S 1000 ML INJ 1,000 ML IV SCH ×4 (02:30→21:01)
[2016-07-09] MEDS: CHLORHEXIDINE GLUCONATE 2 % 1 PACK (2 CLOTHS)(taper/protocol) TOP SCH (04:00)
[2016-07-09] MEDS: INSULIN NovoLIN REGULAR SUPPLEMENTAL SCALE SQ SCH ×6 (04:00→20:00)
[2016-07-09] MEDS ORDERED: CHLORHEXIDINE GLUCONATE 2 % 1 PACK (2 CLOTHS)(extra cloths) TOP PRN (04:00)
[2016-07-09] MEDS: CHLORHEXIDINE GLUCONATE 2 % 1 PACK (2 CLOTHS) TOP SCH (04:00)
[2016-07-09 05:33] LABS: HEMATOCRIT 31.8 % (35.0-46.0); MEAN CELL VOLUME 82.3 FL (80.0-100.0); MEAN CORPUSCULAR HEMOGLOBIN 26.2 PG (27.0-34.0); MEAN CORPUSCULAR HGB CONC 31.9 % (32.0-36.0); PLATELET COUNT 370 TH/MM3 (150-450); RED BLOOD COUNT 3.86 MIL/MM3 (4.00-5.30); RED CELL DISTRIBUTION WIDTH 20.3 % (11.6-17.2); REVIEW FLAG FINAL; WHITE BLOOD COUNT 10.4 TH/MM3 (4.0-11.0)
[2016-07-09 05:56] LABS: BICARBONATE 19.8 MEQ/L (21.0-32.0); POTASSIUM 3.1 MEQ/L (3.5-5.1)
[2016-07-09] MEDS: RESP: ALBUTEROL 2.5 MG/IPRATROPIUM 0.5 MG NEB (SCH) INH ×4 (06:04→20:55)
--- NOTE | 2016-07-09 06:09 | RADRPT ---
EXAM DATE/TIME: 07/09/2016 04:11 [place] COMPARISON: CHEST SINGLE AP, July 08, 2016, 19:04. INDICATIONS : Shortness of breath, possible pulmonary disease. MEDICAL HISTORY : None. SURGICAL HISTORY : None. ENCOUNTER: Subsequent ACUITY: 2 days PAIN SCORE: Non-responsive. LOCATION: Bilateral chest FINDINGS: Endotracheal tube and nasogastric tube are stable in good position. Lungs are clear. No pleural effus ion identified. Cardiomediastinal contours are satisfactory. CONCLUSION: Stable chest. Christopher Crabtree MD on July 09, 2016 at 6:07 Board Certified Radiologist. This report was verified electronically.
[2016-07-09 06:11] LABS: CALCIUM-PROTEIN CORRECTED 7.9 MG/DL (8.5-10.1)
[2016-07-09] MEDS: POTASSIUM CHLOR 20 MEQ PREMIX 100 ML IV PRN ×2 (06:30→08:18)
[2016-07-09] MEDS: PANTOPRAZOLE SODIUM 40 MG VIAL IV SCH (08:15)
[2016-07-09] MEDS: SODIUM CHLORIDE 0.9% FLUSH 5 ML FLUSH IV FLUSH SCH ×2 (08:15→21:01)
[2016-07-09] MEDS: CHLORHEXIDINE 0.12% (ORAL KIT) 15 ML CUP MT SCH ×2 (08:15→19:22)
[2016-07-09] MEDS: POLYETHYLENE GLYCOL 17 GM PKG PO SCH ×2 (08:16→21:00)
[2016-07-09] MEDS: MULTIVITAMIN TAB PO SCH (08:16)
[2016-07-09 12:04] LABS: BICARBONATE 22.8 MEQ/L (21.0-32.0); POTASSIUM 5.9 MEQ/L (3.5-5.1)
[2016-07-09 12:29] LABS: CALCIUM-PROTEIN CORRECTED 7.8 MG/DL (8.5-10.1)
--- NOTE | 2016-07-09 14:34 | HHI.CCPN ---
Subjective Remarks/Hospital Course 07/08: This is a middle-aged female Niesha Jackson who is brought in by EMS for altered mental status. Per reports patient was found unresponsive lying on a bench outside [facility]. Her mental status did not improve with a trial of Narcan. 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 Of note she had an initial lactate of 3 and an ethanol level of 465. We have nothing else about the patient. She was intubated for hypoxia and hypercarbia as well as airway protection. Critical care medicine is been consulted to evaluate and manage her presumed toxic encephalopathy, ethanol overdose, possible isopropyl alcohol ingestion. Poison control contacted multiple times. We have sent off labs. Her osmolar gap is 18. Her anion gap is normal. There are no crystals in her urine by microscopy. Poison control has cleared her from an acute ingestion standpoint. They recommend repeat osmolar gap calculation midmorning. 07/09: Sedated, easily arousable of sedation, orally intubated on mechanical ventilation at the time of my evaluation earlier. Objective Vital Signs Date Time Temp Pulse Resp B/P Pulse Ox O2 Delivery O2 Flow Rate FiO2 07/09/16 13:45 40 07/09/16 13:45 100 07/09/16 12:00 84 07/09/16 12:00 98.1 15 120/76 07/08/16 23:00 Ventilator Result Diagram: 07/09/16 0404 07/09/16 1038 Other Results Laboratory Tests Test 07/08/16 18:44 Blood Gas Puncture Site LT RADIAL Blood Gas Patient Temperature 98.6 Blood Gas HCO3 20 mmol/L (22-26) Blood Gas Base Excess -4.6 mmol/L (-2-2) Blood Gas Oxygen Saturation 80 % (90-100) Arterial Blood pH 7.32 (7.380-7.420) Arterial Blood Partial 41 mmHg (38-42) Pressure CO2 Arterial Blood Partial 72 mmHG Pressure O2 (61-120) Arterial Blood Oxygen Content 13.5 Vol % (12.0-20.0) Arterial Blood 7.6 % (0-4) Carboxyhemoglobin Arterial Blood Methemoglobin 2.0 % (0-2) Blood Gas Hemoglobin 12.0 G/DL (12.0-16.0) Oxygen Delivery Device VENTILATOR Blood Gas Ventilator Setting AC/14/450/PEEP5 Blood Gas Inspired Oxygen 40 % Imaging Last Impressions Chest X-Ray 07/09/16 0600 Signed Impressions: Service Date/Time: June 04:11 - CONCLUSION: Stable chest. Christopher Crabtree MD Head CT 07/08/16 1831 Signed Impressions: Service Date/Time: Friday, July 08, 2016 19:35 - CONCLUSION: No acute intracranial disease. Stanislaw Yanez MD Cervical Spine CT 07/08/16 0000 Signed Impressions: Service Date/Time: Friday, July 08, 2016 19:35 - CONCLUSION: No acute fracture or subluxation. Minimal fracture along the superior endplate at T1 appears old. Stanislaw Yanez MD Objective Remarks GENERAL: Middle-aged female, lying in bed, intubated HEENT: Pupils equal, round, reactive, conjugate. Normocephalic Atraumatic. NECK: Trachea is midline. C collar in place CHEST: Equal chest rise. Intubated. Clear to auscultation. CARDIOVASCULAR: Normal rate, regular rhythm. No appreciable murmurs. ABDOMEN: Off, nontender, nondistended. No guarding. MUSCULOSKELETAL: No peripheral edema. Distal pulses 2+. NEUROLOGICAL: Sedated, arousable, orally intubated. Does not follow commands. A/P Assessment and Plan Assessment: This is a middle-aged female found unresponsive at [facility] with severe ethanol toxicity and reported possible history of isopropyl alcohol ingestion. She remains critically ill. Plan by systems: Neurologic: Alcohol intoxication Possible isopropyl alcohol ingestion Toxic encephalopathy T1 superior endplate fracture Propofol, fentanyl held for C Pap trial this morning. Poison control following --Follow neuro status. Patient being extubated following C Pap trial. Will initiate alcohol withdrawal protocol and Precedex for history of alcohol abuse with concern for withdrawal. Respiratory: Acute hypoxic and hypercarbic respiratory failure Vent bundle Head of bed 30 Nebs every 6 and every 2 when necessary Tolerated C Pap trial and extubated to nasal cannula Cardiovascular: Continue telemetry Renal: Topete catheter for accurate I's and O's -- Monitor and replete electro lites, follow BUN/creatinine FEN/GI: Severely elevated serum osmolality Acute protein calorie malnutritionmild Hypokalemia Nothing by mouth Follow-up osm, etoh level, bmp ICU electrolyte protocol Daily BMP Decrease maintenance fluids LR at 100 cc an hour Heme/ID: No infectious etiology suspected this time Daily CBC Endocrine: Hypoglycemia -- SSI, every 4 hours, medium scale D10 @ 30 cc an hour Prophylaxis: GI Prophylaxis Protonix 40 mg IV daily 24 hours DVT Prophylaxis -- SCDs Lovenox 40 mg subcutaneous every 24 hours Lines: Per 4 IVs Prasanth Hart MD Jul 09, 2016 14:34
[2016-07-09] MEDS ORDERED: LORazepam 2 MG/ML VIAL IV PUSH PRN ×4 (15:00)
[2016-07-09] MEDS ORDERED: HALOPERIDOL LACTATE 5 MG/ML AMP IM PRN (15:00)
[2016-07-09] MEDS ORDERED: FLUMAZENIL 0.5 MG/5 ML VIAL IV PUSH PRN (15:00)
--- NOTE | 2016-07-09 16:50 | PD.CONS ---
(Gallo Pedraza MD) HPI Consult Requested By Primary Care Physician Unknown (Gallo Pedraza MD) Service NRS Consult Requested By Dr. Marion critical care Reason for Consult T1 fracture History of Present Illness This is a middle age Niesha Jackson female who was brought to [place] for altered mental status. Patient was and able to provide any of the history does her history due to clinical condition thus history was obtained via her medical record. According to the report the patient was found unresponsive on a bench outside of [facility]. She was given Narcan with no improvement. Alcohol level was 465. CT get the head was negative for any acute intracranial pathologies. A CT of the cervical spine showed superior endplate fracture at T1 which appears old. She is on a [place] collar. A neurosurgical evaluation is requested. (Juana Florentino) Review of Systems ROS Limitations: Clinical Condition, Altered Mental Status (Juana Florentino) Past Family Social History Allergies: Coded Allergies: UNOBTAINABLE (Unverified , 07/08/16) Past Medical History unable to obtain Past Surgical History unable to obtain Reported Medications unable to obtain Family History unable to obtain Social History unable to obtain but apparently has etoh abuse (Juana Florentino) Physical Exam Vital Signs Vital Signs Date Time Temp Pulse Resp B/P Pulse Ox O2 Delivery O2 Flow Rate FiO2 07/09/16 14:00 101 07/09/16 14:00 100 Nasal Cannula 4 07/09/16 13:45 40 07/09/16 13:45 100 40 07/09/16 12:11 100 40 07/09/16 12:00 84 07/09/16 12:00 40 07/09/16 12:00 98.1 80 15 120/76 100 07/09/16 10:00 82 07/09/16 08:00 40 07/09/16 08:00 98.3 73 15 95/57 96 07/09/16 08:00 70 07/09/16 07:52 98 40 07/09/16 06:00 72 07/09/16 04:22 100 40 07/09/16 04:00 40 07/09/16 04:00 81 07/09/16 04:00 97.5 81 15 103/65 98 07/09/16 02:00 85 07/09/16 00:50 100 40 07/09/16 00:36 97.5 99 15 151/81 07/09/16 00:33 100 40 07/09/16 00:30 40 07/09/16 00:15 100 100 07/08/16 23:00 98.6 100 15 123/75 100 Ventilator 35 07/08/16 22:00 100 14 140/87 100 Ventilator 35 07/08/16 21:00 98 14 147/87 100 Ventilator 50 07/08/16 20:31 100 40 07/08/16 20:00 98 14 151/98 100 Ventilator 50 07/08/16 19:30 100 100 07/08/16 19:00 98.2 100 22 157/103 100 Ventilator 50 07/08/16 18:36 99 40 07/08/16 18:20 97.6 112 16 152/96 98 Physical Exam The patient is alert, awake and oriented to time, place and person. Speech is fluent. Cranial nerve examination: pupils to be equal, round and reactive to light. Extra-ocular movements are intact. Facial motor and sensory function are normal and symmetrical. Gross hearing appears intact. Sternocleidomastoid and trapezius muscles are symmetrical. Other cranial nerves are intact. Neck is soft and supple with a good, normal range of motion without pain. Muscle strength is normal in all muscle groups of both upper and lower extremities. Sensory examination is intact to light touch and pin prick in both the upper and lower extremities. Deep tendon reflexes are symmetrical in both upper and lower extremities. There is a bilateral plantar flexion response. Cerebellar examination is unremarkable, without deficits. Laboratory Laboratory Tests Test 07/08/16 07/08/16 07/08/16 07/08/16 18:35 18:44 23:40 23:45 Prothrombin Time 11.4 Prothromb Time International 1.0 Ratio Activated Partial 25.0 Thromboplast Time Sodium Level 141 145 Potassium Level 3.4 3.2 Chloride Level 106 112 Carbon Dioxide Level 21.8 24.1 Anion Gap 13 9 Blood Urea Nitrogen 5 5 Creatinine 0.67 0.60 Estimat Glomerular Filtration 76 86 Rate Random Glucose 108 108 Lactic Acid Level 3.8 2.6 Calcium Level 7.2 7.4 Protein Corrected Calcium 7.4 7.7 Total Bilirubin 0.1 Aspartate Amino Transf 44 (AST/SGOT) Alanine Aminotransferase 38 (ALT/SGPT) Alkaline Phosphatase 91 Ammonia 38 Total Creatine Kinase 153 193 Troponin I LESS THAN 0.02 Total Protein 6.8 6.5 Albumin 3.1 Thyroid Stimulating Hormone 1.040 3rd Gen Salicylates Level 3.8 Urine Opiates Screen NEG Acetaminophen Level LESS THAN 2.0 Urine Barbiturates Screen NEG Urine Amphetamines Screen NEG Urine Benzodiazepines Screen NEG Urine Cocaine Screen NEG Urine Cannabinoids Screen NEG Ethyl Alcohol Level 465 322 White Blood Count 9.5 Red Blood Count 4.58 Hemoglobin 12.4 Hematocrit 37.5 Mean Corpuscular Volume 82.0 Mean Corpuscular Hemoglobin 27.0 Mean Corpuscular Hemoglobin 33.0 Concent Red Cell Distribution Width 20.2 Platelet Count 442 Mean Platelet Volume 6.7 Neutrophils (%) (Auto) 57.1 Lymphocytes (%) (Auto) 35.0 Monocytes (%) (Auto) 5.2 Eosinophils (%) (Auto) 2.2 Basophils (%) (Auto) 0.5 Neutrophils # (Auto) 5.4 Lymphocytes # (Auto) 3.3 Monocytes # (Auto) 0.5 Eosinophils # (Auto) 0.2 Basophils # (Auto) 0.0 CBC Comment DIFF FINAL Differential Comment Urine Color YELLOW LIGHT-YELLOW Urine Turbidity CLEAR CLEAR Urine pH 6.0 6.0 Urine Specific [place] 1.012 1.009 Urine Protein 30 TRACE Urine Glucose (UA) NEG NEG Urine Ketones NEG NEG Urine Occult Blood NEG NEG Urine Nitrite NEG NEG Urine Bilirubin NEG NEG Urine Urobilinogen LESS THAN 2.0 LESS THAN 2.0 Urine Leukocyte Esterase SMALL TRACE Urine WBC 4 3 Urine Bacteria RARE MANY Microscopic Urinalysis Comment CATH-CULTURE CATH IND Blood Gas Puncture Site LT RADIAL Blood Gas Patient Temperature 98.6 Blood Gas HCO3 20 Blood Gas Base Excess -4.6 Blood Gas Oxygen Saturation 80 Arterial Blood pH 7.32 Arterial Blood Partial 41 Pressure CO2 Arterial Blood Partial 72 Pressure O2 Arterial Blood Oxygen Content 13.5 Arterial Blood 7.6 Carboxyhemoglobin Arterial Blood Methemoglobin 2.0 Blood Gas Hemoglobin 12.0 Oxygen Delivery Device VENTILATOR Blood Gas Ventilator Setting AC/14/450/PEEP5 Blood Gas Inspired Oxygen 40 Urine RBC LESS THAN 1 Urine Squamous Epithelial <1 Cells Urine Hyaline Casts 1 Urine Mucus FEW Serum Osmolality 386 Creatine Kinase MB 1.7 Creatine Kinase MB % 0.9 Test 07/09/16 07/09/16 07/09/16 00:50 04:04 10:38 Nasal Screen MRSA (PCR) NEGATIVE White Blood Count 10.4 Red Blood Count 3.86 Hemoglobin 10.1 Hematocrit 31.8 Mean Corpuscular Volume 82.3 Mean Corpuscular Hemoglobin 26.2 Mean Corpuscular Hemoglobin 31.9 Concent Red Cell Distribution Width 20.3 Platelet Count 370 Mean Platelet Volume 6.6 Sodium Level 144 142 Potassium Level 3.1 5.9 Chloride Level 111 112 Carbon Dioxide Level 19.8 22.8 Anion Gap 13 7 Blood Urea Nitrogen 4 4 Creatinine 0.50 0.58 Estimat Glomerular Filtration 106 90 Rate Random Glucose 79 96 Calcium Level 7.0 7.1 Protein Corrected Calcium 7.9 7.8 Total Protein 5.3 5.8 Serum Osmolality 316 Ethyl Alcohol Level 68 Date/Time Procedure Status Source Growth 07/08/16 18:55 Aerobic Blood Culture - Preliminary Resulted Blood Peripheral NO GROWTH IN 1 DAY 07/08/16 18:55 Anaerobic Blood Culture - Preliminary Resulted Blood Peripheral NO GROWTH IN 1 DAY 07/08/16 18:35 Urine Culture - Preliminary Resulted Urine Catheterized Urine Gram Negative Sebastien (Gallo Pedraza MD) Result Diagram: 07/09/16 0404 07/09/16 1038 Imaging Last Impressions Chest X-Ray 07/09/16 0600 Signed Impressions: Service Date/Time: June 04:11 - CONCLUSION: Stable chest. Christopher Crabtree MD Head CT 07/08/16 1831 Signed Impressions: Service Date/Time: Friday, July 08, 2016 19:35 - CONCLUSION: No acute intracranial disease. Stanislaw Yanez MD Cervical Spine CT 07/08/16 0000 Signed Impressions: Service Date/Time: Friday, July 08, 2016 19:35 - CONCLUSION: No acute fracture or subluxation. Minimal fracture along the superior endplate at T1 appears old. Stanislaw Yanez MD (Gallo Pedraza MD) Attending Statement Neuro. I have reviewed her clinical and radiological findings. There is no cervical fracture. There is no indication for a cervical collar Respiratory failure. pulmonary toilette, nasotracheal suction, and breathing treatments with nebulizers. Hypokalemia. Corrected ETOH. counseled protein calorie malnutrition. Defer to medical PT and OT Nutrition. Oral diet Renal. monitor closely urine output, BUN and creatinine Hypoglucemia. Corrected. Monitor serial Acu checks and SSI as needed in detail ID monitor for signs of infection Protonix for stress ulcer prophylaxis Zach hose and SCD's for DVT prophylaxis (Gallo Pedraza MD) Gallo Pedraza MD Jul 09, 2016 16:50 Juana Florentino Jul 10, 2016 16:08
--- NOTE | 2016-07-09 20:58 | EKG ---
Date Performed: 07/09/2016 Time Performed: 04:11:26 PTAGE: 89 years EKG: Sinus rhythm Prolonged QT interval Borderline ECG NO PREVIOUS TRACING DOCTOR: Sterling Rosenberg Interpretating Date/Time 07/09/2016 20:55:34
[2016-07-09] MEDS: DEXTROSE 10% INJ 1,000 ML IV SCH (21:01)
[2016-07-09] MEDS: DEXMEDETOMIDINE INJ 50 ML IV SCH (21:06)
--- NOTE | 2016-07-09 21:10 | EKG ---
Date Performed: 07/08/2016 Time Performed: 18:37:41 PTAGE: 89 years EKG: SINUS TACHYCARDIA ABNORMAL RHYTHM ECG NO PREVIOUS TRACING DOCTOR: Sterling Rosenberg Interpretating Date/Time 07/09/2016 21:04:45
[2016-07-09] MEDS: ENOXAPARIN SODIUM 40 MG/0.4 ML SYRINGE SQ SCH (22:15)
[2016-07-10] VITALS (13 sets, daily range): BP systolic 86–123; BP diastolic 51–72; PULSE 74–105; RESP 9–20; TEMP 98–99.3; O2SAT 93–98
[2016-07-10] MEDS: THIAMINE INJ 100 MG in SODIUM CHLORIDE 0.9% INJ 100 ML IV SCH (01:46)
[2016-07-10] MEDS: INSULIN NovoLIN REGULAR SUPPLEMENTAL SCALE SQ SCH ×4 (03:24→11:58)
[2016-07-10] MEDS: CHLORHEXIDINE GLUCONATE 2 % 1 PACK (2 CLOTHS)(taper/protocol) TOP SCH (03:25)
[2016-07-10] MEDS: RESP: ALBUTEROL 2.5 MG/IPRATROPIUM 0.5 MG NEB (SCH) INH ×4 (03:58→22:13)
[2016-07-10] MEDS: CHLORHEXIDINE GLUCONATE 2 % 1 PACK (2 CLOTHS) TOP SCH (04:00)
[2016-07-10 05:54] LABS: HEMATOCRIT 29.9 % (35.0-46.0); MEAN CELL VOLUME 80.4 FL (80.0-100.0); MEAN CORPUSCULAR HEMOGLOBIN 26.5 PG (27.0-34.0); PLATELET COUNT 313 TH/MM3 (150-450); RED BLOOD COUNT 3.72 MIL/MM3 (4.00-5.30); REVIEW FLAG FINAL; WHITE BLOOD COUNT 12.4 TH/MM3 (4.0-11.0)
[2016-07-10] MEDS: LACTATED RINGER'S 1000 ML INJ 1,000 ML IV SCH (05:57)
[2016-07-10] MEDS: DEXMEDETOMIDINE INJ 50 ML IV SCH (06:23)
[2016-07-10 06:27] LABS: POTASSIUM 3.3 MEQ/L (3.5-5.1)
[2016-07-10] MEDS: MULTIVITAMIN TAB PO SCH (08:00)
[2016-07-10] MEDS: POLYETHYLENE GLYCOL 17 GM PKG PO SCH ×2 (08:00→20:35)
[2016-07-10] MEDS: SODIUM CHLORIDE 0.9% FLUSH 5 ML FLUSH IV FLUSH SCH ×2 (08:00→20:36)
[2016-07-10] MEDS: CHLORHEXIDINE 0.12% (ORAL KIT) 15 ML CUP MT SCH (08:00)
[2016-07-10] MEDS: PANTOPRAZOLE SODIUM 40 MG VIAL IV SCH (08:00)
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
[2016-07-10] MEDS: chlordiazePOXIDE 25 MG CAP PO SCH ×2 (17:08→23:38)
[2016-07-10] MEDS: ENOXAPARIN SODIUM 40 MG/0.4 ML SYRINGE SQ SCH (23:38)
[2016-07-11] VITALS (9 sets, daily range): BP systolic 89–112; BP diastolic 51–72; PULSE 83–108; RESP 15–20; TEMP 98.2–98.8; O2SAT 93–97
[2016-07-11] MEDS: RESP: ALBUTEROL 2.5 MG/IPRATROPIUM 0.5 MG NEB (SCH) INH ×4 (03:49→21:47)
[2016-07-11] MEDS: CHLORHEXIDINE GLUCONATE 2 % 1 PACK (2 CLOTHS)(taper/protocol) TOP SCH (04:00)
[2016-07-11] MEDS: CHLORHEXIDINE GLUCONATE 2 % 1 PACK (2 CLOTHS) TOP SCH (04:00)
[2016-07-11] MEDS: chlordiazePOXIDE 25 MG CAP PO SCH ×3 (06:21→17:53)
[2016-07-11 07:25] LABS: HEMATOCRIT 32.9 % (35.0-46.0); MEAN CELL VOLUME 82.2 FL (80.0-100.0); MEAN CORPUSCULAR HEMOGLOBIN 26.7 PG (27.0-34.0); MEAN CORPUSCULAR HGB CONC 32.4 % (32.0-36.0); PLATELET COUNT 310 TH/MM3 (150-450); RED CELL DISTRIBUTION WIDTH 20.2 % (11.6-17.2); REVIEW FLAG FINAL; WHITE BLOOD COUNT 10.2 TH/MM3 (4.0-11.0)
[2016-07-11 07:46] LABS: BICARBONATE 27.3 MEQ/L (21.0-32.0); POTASSIUM 3.2 MEQ/L (3.5-5.1)
[2016-07-11] MEDS: MULTIVITAMIN TAB PO SCH (08:31)
[2016-07-11] MEDS: THIAMINE HCL 100 MG TAB PO SCH (08:31)
[2016-07-11] MEDS: PANTOPRAZOLE SODIUM 40 MG VIAL IV SCH (08:31)
[2016-07-11] MEDS: SODIUM CHLORIDE 0.9% FLUSH 5 ML FLUSH IV FLUSH SCH ×2 (08:32→20:56)
[2016-07-11] MEDS: POLYETHYLENE GLYCOL 17 GM PKG PO SCH ×2 (08:33→20:56)
[2016-07-11] MEDS ORDERED: POTASSIUM CHLOR 10 MEQ PREMIX 100 ML IV SCH (10:00)
--- NOTE | 2016-07-11 11:26 | HHI.PR ---
Subjective Remarks no complains d/w about circumstances she is showing more emotions c/w yesterday when her affect was blunt Objective Vitals Vital Signs Date Time Temp Pulse Resp B/P Pulse Ox O2 Delivery O2 Flow Rate FiO2 07/11/16 09:30 94 Nasal Cannula 2.00 07/11/16 08:00 98.7 96 20 91/53 95 07/11/16 04:00 98.2 92 15 112/58 93 07/11/16 00:00 98.8 108 15 89/51 93 07/10/16 22:13 93 21 07/10/16 20:00 99.0 105 15 123/72 93 07/10/16 18:00 93 07/10/16 16:00 98.3 93 17 105/67 98 07/10/16 16:00 93 07/10/16 14:00 94 07/10/16 12:00 95 07/10/16 12:00 99.3 95 9 91/57 95 I/O 07/10/16 07/10/16 07/10/16 07/11/16 07/11/16 07/11/16 07:00 15:00 23:00 07:00 15:00 23:00 Intake Total 950 ml 731 ml 640 ml 960 ml Output Total 1250 ml 1435 ml 700 ml Balance -300 ml -704 ml -60 ml 960 ml Intake Oral 240 ml 640 ml 960 ml IV Total 950 ml 491 ml Output Urine Total 1250 ml 1435 ml 700 ml # Voids 1 6 Result Diagram: 07/11/16 0630 07/11/16 0630 Imaging Last Impressions Chest X-Ray 07/09/16 0600 Signed Impressions: Service Date/Time: June 04:11 - CONCLUSION: Stable chest. Christopher Crabtree MD Head CT 07/08/16 1831 Signed Impressions: Service Date/Time: Friday, July 08, 2016 19:35 - CONCLUSION: No acute intracranial disease. Stanislaw Yanez MD Cervical Spine CT 07/08/16 0000 Signed Impressions: Service Date/Time: Friday, July 08, 2016 19:35 - CONCLUSION: No acute fracture or subluxation. Minimal fracture along the superior endplate at T1 appears old. Stanislaw Yanez MD Objective Remarks awake and alert, oriented x 3, slightly tearful anicteric lungs clear regular rhythm abdomen soft, nontender extremities no edema neuro exam non focal Procedures intubation/extubation Date of Removal: Jul 10, 2016 A/P Assessment and Plan Assessment: This is a middle-aged female found unresponsive at [facility] with severe ethanol toxicity and reported possible history of isopropyl alcohol ingestion. She remains critically ill. Plan by systems: Neurologic: Alcohol intoxication Possible isopropyl alcohol ingestion Toxic encephalopathy- resolved T1 superior endplate fracture - LIbrium S/P Acute hypoxic and hypercarbic respiratory failure- extubated 07/09 --Incetnive spirometry Nebs every 6 and every 2 when necessary Hypokalemia - tolerating diet -replace IV and po Endocrine: Hypoglycemia- resolved --regular diet Depression- get psychiatry consult for recommendation -? inpatient candidate- DVT Prophylaxis -- SCDs Lovenox 40 mg subcutaneous every 24 hours Increase activity- out of bed Rigo Maher MD Jul 11, 2016 11:26 Rigo Maher MD Jul 11, 2016 11:26
[2016-07-11] MEDS: ACETAMINOPHEN 325 MG TAB PO PRN ×2 (11:33→17:55)
[2016-07-11] MEDS ORDERED: POTASSIUM CHLORIDE 10 MEQ CONTROLLED RELEASE TAB PO ONE (12:30)
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
[2016-07-11] MEDS ORDERED: QUEtiapine FUMARATE 100 MG TAB PO SCH (21:00)
[2016-07-12] VITALS: BP 109/56; PULSE 88; RESP 20; TEMP 98.1; O2SAT 98
[2016-07-12] MEDS: ACETAMINOPHEN 325 MG TAB PO PRN ×2 (01:15→07:11)
[2016-07-12] MEDS: ENOXAPARIN SODIUM 40 MG/0.4 ML SYRINGE SQ SCH (01:15)
[2016-07-12] MEDS: chlordiazePOXIDE 25 MG CAP PO SCH ×2 (01:15→05:58)
[2016-07-12 04:00] VITALS: BP 105/54; PULSE 69; RESP 18; TEMP 97.4; O2SAT 98
[2016-07-12] MEDS: CHLORHEXIDINE GLUCONATE 2 % 1 PACK (2 CLOTHS) TOP SCH (04:00)
[2016-07-12] MEDS: CHLORHEXIDINE GLUCONATE 2 % 1 PACK (2 CLOTHS)(taper/protocol) TOP SCH (04:00)
[2016-07-12 07:42] LABS: MEAN CORPUSCULAR HEMOGLOBIN 26.6 PG (27.0-34.0); PLATELET COUNT 310 TH/MM3 (150-450); RED BLOOD COUNT 3.86 MIL/MM3 (4.00-5.30); RED CELL DISTRIBUTION WIDTH 19.9 % (11.6-17.2); REVIEW FLAG FINAL; WHITE BLOOD COUNT 7.8 TH/MM3 (4.0-11.0)
[2016-07-12 08:00] VITALS: BP 134/71; PULSE 76; PULSE 82; RESP 20; TEMP 97.8; O2SAT 100
[2016-07-12 08:03] LABS: BICARBONATE 26.1 MEQ/L (21.0-32.0); POTASSIUM 3.5 MEQ/L (3.5-5.1)
[2016-07-12] MEDS: PANTOPRAZOLE SODIUM 40 MG VIAL IV SCH (08:28)
[2016-07-12] MEDS: MULTIVITAMIN TAB PO SCH (08:28)
[2016-07-12] MEDS: THIAMINE HCL 100 MG TAB PO SCH (08:28)
[2016-07-12] MEDS: SODIUM CHLORIDE 0.9% FLUSH 5 ML FLUSH IV FLUSH SCH (08:30)
[2016-07-12] MEDS: POLYETHYLENE GLYCOL 17 GM PKG PO SCH (08:33)
[2016-07-12] MEDS ORDERED: ESCITALOPRAM OXALATE 20 MG TAB PO SCH (09:00)
[2016-07-12] MEDS: RESP: ALBUTEROL 2.5 MG/IPRATROPIUM 0.5 MG NEB (SCH) INH ×2 (10:04→16:40)
[2016-07-12 10:05] VITALS: O2SAT 98
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
[2016-07-12] MEDS ORDERED: POTASSIUM CHLORIDE 10 MEQ CONTROLLED RELEASE TAB PO SCH (11:00)
[2016-07-12 12:00] VITALS: BP 139/78; PULSE 92; RESP 16; TEMP 98.3; O2SAT 96
[2016-07-12] MEDS ORDERED: CEPHALEXIN MONOHYDRATE 500 MG CAP PO SCH (12:00)
[2016-07-12] MEDS ORDERED: chlordiazePOXIDE 25 MG CAP PO SCH (14:00)
[2016-07-12 16:00] VITALS: BP 148/69; PULSE 103; RESP 16; TEMP 98.1; O2SAT 97
[2016-07-13] MEDS ORDERED: PANTOPRAZOLE SOD 40 MG DELAYED RELEASE TAB PO SCH (09:00)
--- NOTE | 2016-07-30 11:24 | HHI.DS ---
Discharge Summary Admission Date Jul 08, 2016 at 20:49 Discharge Date: Jul 12, 2016 Admitting Diagnosis alcohol intoxication 465 alcohol level (1) Alcohol intoxication delirium ICD Code: F10.121 Diagnosis: Principal Procedures intubation/extubation Brief History - From Admission This is a middle-aged female Niesha Jackson who is brought in by EMS for altered mental status. Per reports patient was found unresponsive lying on a bench outside [facility]. Her mental status did not improve with a trial of Narcan. 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 Of note she had an initial lactate of 3 and an ethanol level of 465. We have nothing else about the patient. She was intubated for hypoxia and hypercarbia as well as airway protection. Critical care medicine is been consulted to evaluate and manage her presumed toxic encephalopathy, ethanol overdose, possible isopropyl alcohol ingestion. We've spoken with poison control multiple times. We have sent off labs. Her osmolar gap is 18. Her anion gap is normal. There are no crystals in her urine by microscopy. Poison control has cleared her from an acute ingestion standpoint. They recommend repeat osmolar gap calculation midmorning. Imaging Last Impressions Chest X-Ray 07/09/16 0600 Signed Impressions: Service Date/Time: June 04:11 - CONCLUSION: Stable chest. Christopher Crabtree MD Head CT 07/08/16 1831 Signed Impressions: Service Date/Time: Friday, July 08, 2016 19:35 - CONCLUSION: No acute intracranial disease. Stanislaw Yanez MD Cervical Spine CT 07/08/16 0000 Signed Impressions: Service Date/Time: Friday, July 08, 2016 19:35 - CONCLUSION: No acute fracture or subluxation. Minimal fracture along the superior endplate at T1 appears old. Stanislaw Yanez MD PE at Discharge awake and alert, oriented x 3, not tearful, wanting to go to [facility] army anicteric lungs clear regular rhythm abdomen soft, nontender extremities no edema, left wrist area- with area of erythema and induration- neuro exam non focal Pt update on day of discharge awake and alert, oriented x 3 insists on leaving no suicidal ideations Hospital Course This is a middle-aged female found unresponsive at [facility] with severe ethanol toxicity and reported possible history of isopropyl alcohol ingestion. She remains critically ill. Alcohol intoxication Possible isopropyl alcohol ingestion Toxic encephalopathy- resolved T1 superior endplate fracture - LIbrium decrease to tid S/P Acute hypoxic and hypercarbic respiratory failure- extubated 07/09 --Incetnive spirometry Nebs every 6 and every 2 when necessary Hypokalemia -resolved. KCL 10 meq po daily Endocrine: Hypoglycemia- resolved --regular diet Depression- get psychiatry consult for recommendation -appreciate Dr. Mendosa seeing patient- transfer to psychiatry department- medically cleared DVT Prophylaxis -- SCDs Lovenox 40 mg subcutaneous every 24 hours Cellulitis- left wrist area warm compress. monitor for abscess formation confirm- no allergies start keflex 500 mg po qid Increase activity- out of bed CM consult patient under [place] [facility].- - psychiatry ff patient sounds like she is going to sign out AMA Pt Condition on Discharge: Stable Discharge Disposition: Discharge Home ([facility]) Discharge Time: <= 30 minutes Discharge Instructions DIET: Follow Instructions for: As Tolerated, No Restrictions Speech Therapy-Diet Recommends: Regular Activities you can perform: Weight Bearing as Gabrielle Medication Profile: Unable to Obtain Active Prescriptions or Reported Meds Rigo Maher MD Jul 30, 2016 11:23
== END 2016-07-12 18:36 | DRG 189 ==
LOC: NEPE 18:18 → MERGE 20:49 → NEDA 20:49 → EDBD 20:49 → HIME 07-09 00:25 → N04A 07-10 19:37
PROVIDERS: ADMIT Internal Medicine; ATTEND Internal Medicine
PROC: 0BH17EZ Insertion of Endotracheal Airway into Trachea, Via Natural or Artificial Opening (ICD-10-PCS; principal; 2016-07-08)
PROC: 3E0G76Z Introduction of Nutritional Substance into Upper GI, Via Natural or Artificial Opening (ICD-10-PCS; 2016-07-08)
PROC: 0T9B70Z Drainage of Bladder with Drainage Device, Via Natural or Artificial Opening (ICD-10-PCS; 2016-07-08)
PROC: 4A133B1 Monitoring of Arterial Pressure, Peripheral, Percutaneous Approach (ICD-10-PCS; 2016-07-08)
PROC: 4A133J1 Monitoring of Arterial Pulse, Peripheral, Percutaneous Approach (ICD-10-PCS; 2016-07-08)
DX: J96.01 Acute respiratory failure with hypoxia (principal); T51.2X4A Toxic effect of 2-Propanol, undetermined, initial encounter; J96.02 Acute respiratory failure with hypercapnia; G92 Toxic encephalopathy; S22.019A Unspecified fracture of first thoracic vertebra, initial encounter for closed fracture; E44.1 Mild protein-calorie malnutrition; L03.114 Cellulitis of left upper limb; F10.129 Alcohol abuse with intoxication, unspecified; Y90.8 Blood alcohol level of 240 mg/100 ml or more; E16.2 Hypoglycemia, unspecified; E87.6 Hypokalemia; F32.9 Major depressive disorder, single episode, unspecified; X58.XXXA Exposure to other specified factors, initial encounter; Y93.89 Activity, other specified; Y92.89 Other specified places as the place of occurrence of the external cause; Z72.0 Tobacco use
CPT/HCPCS: 31500; 36600; 43753; 51702; 70450; 71010; 72125; 80048; 80053; 80307; 80320; 80329; 81001; 82140; 82550; 82552; 82805; 82948; 83605; 83735; 83930; 84155; 84443; 84484; 84703; 85025; 85027; 85610; 85730; 87040; 87077; 87086; 87186; 87641; 93005; 94002; 94003; 94150; 94640; 94664; 96374; 96375; C9113; C9399; G0480; J0330; J1650; J2060; J2310; J2405; J3010; J3411; J3480; J7030; J7120

== ENCOUNTER 2016-07-12 17:00 | Inpatient (IN) | payer OTHER ==
[2016-07-12 18:35] VITALS: BP 120/79; PULSE 72; RESP 18; TEMP 97.1
[2016-07-12] MEDS ORDERED: ALUMINUM/MAGNESIUM/SIMETH 30 ML CUP PO PRN (19:15)
[2016-07-12] MEDS ORDERED: LORazepam 2 MG/ML VIAL IM PRN (19:15)
[2016-07-12] MEDS ORDERED: MAGNESIUM HYDROXIDE SUSP 30 ML CUP PO PRN (19:15)
[2016-07-12] MEDS: QUEtiapine FUMARATE 100 MG TAB PO SCH (20:50)
[2016-07-12] MEDS: REMOVE OLD NICOTINE PATCH T-DERMAL SCH (20:50)
[2016-07-12] MEDS: ACETAMINOPHEN 325 MG TAB PO PRN (20:54)
[2016-07-12] MEDS: LORazepam 1 MG TAB PO PRN (22:41)
[2016-07-12] MEDS: CEPHALEXIN MONOHYDRATE 500 MG CAP PO SCH (22:41)
[2016-07-13 05:30] VITALS: BP 124/83; PULSE 76; RESP 16; TEMP 97.6
[2016-07-13] MEDS: CEPHALEXIN MONOHYDRATE 500 MG CAP PO SCH ×2 (05:30→12:00)
[2016-07-13] MEDS: LORazepam 1 MG TAB PO PRN ×2 (06:23→13:50)
[2016-07-13] MEDS: ACETAMINOPHEN 325 MG TAB PO PRN ×2 (06:24→13:51)
[2016-07-13 07:51] LABS: ANION GAP 7 MEQ/L (5-15); BICARBONATE 27.6 MEQ/L (21.0-32.0); BLOOD UREA NITROGEN 7 MG/DL (7-18); CHLORIDE 105 MEQ/L (98-107); GLOMERULAR FILTRATION RATE 110 ML/MIN (>89); HDL CHOLESTEROL 86.2 MG/DL (40.0-60.0); LDL CHOLESTEROL 82 MG/DL (0-99); POTASSIUM 3.8 MEQ/L (3.5-5.1); SODIUM (NA) 140 MEQ/L (136-145)
[2016-07-13] MEDS: MULTIVITAMIN TAB PO SCH (09:08)
[2016-07-13] MEDS: NICOTINE 21 MG/24 HR PATCH T-DERMAL SCH (09:08)
[2016-07-13] MEDS: POTASSIUM CHLORIDE 10 MEQ CONTROLLED RELEASE TAB PO SCH (09:09)
[2016-07-13] MEDS: ESCITALOPRAM OXALATE 20 MG TAB PO SCH (09:09)
[2016-07-13] MEDS: PANTOPRAZOLE SOD 40 MG DELAYED RELEASE TAB PO SCH (09:09)
[2016-07-13] MEDS: THIAMINE HCL 100 MG TAB PO SCH (09:09)
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
[2016-07-13 12:07] LABS: HEMOGLOBIN A1a 1.2 %; HEMOGLOBIN A1b 0.8 %; HEMOGLOBIN Ao 85.9 %; HEMOGLOBIN F 0.8 %; HEMOGLOBIN P3 3.5 %
--- NOTE | 2016-07-13 14:50 | PD.CONS ---
[facility] team Reason for Consult Medical management of alcohol withdrawal Primary Care Physician Unknown Diagnoses: History of Present Illness Patient is a 55 year old female with primary medical history of alcoholism, depression who was admitted following alcohol intoxication and feeling depressed and possible suicidal ideation. Patient is now admitted to inpatient psychiatry unit for further evaluation. Consulted for medical management alcohol withdrawal. Patient states that she has been alcoholic since she was 12 years old. She has been drinking on and off last time she drank she thinks it was 07/07/16 she drinks a bottle of wine and beers. Currently on antibiotic treatment for urinary tract infection Keflex, started in the ED. States she has some urinary frequency and discomfort. Feeling warm, and chilly but doesn't know if she is really having fevers. Denies pain and discomfort. Denies SOB/ dyspnea. Denies chest pain, palpitations, headaches, dizziness. Denies n/v/d. Review of Systems Other Negative except for what is noted on history of present illness. Past Family Social History Allergies: Coded Allergies: *MDRO Multi-Drug Resistant Organism (Verified Adverse Reaction, Unknown, ) ESBL+E.Coli (urine-02/16/16) Past Medical History Alcoholism Depression Past Surgical History Left ankle surgery Reported Medications Quetiapine [id number] M1 200 Mg [id number] Mg PO HS #30 TAB Prov:Minnie Marie MD 03/02/16 Quetiapine Fumarate 25 Mg Tab25 Mg PO BID@, #60 TAB Prov:Minnie Marie MD 03/02/16 Escitalopram Oxalate 10 Mg Tab5 Mg PO DAILY #15 TAB Prov:Minnie Marie MD 03/02/16 Escitalopram Oxalate 10 Mg Tab10 Mg PO HS 30 Days Prov:Jojo Min PA-C 12/23/15 Trazodone HCl 100 Mg [id number] Mg PO HS 01/21/16 Omeprazole 20 mg (Prilosec 20 mg)20 Mg Cap20 Mg PO DAILY 12/21/15 Active Ordered Medications Current Medications Medications (Trade) Dose Ordered Sig/Beatrice Route Start Time Stop Time Status Last Admin (Ativan) 1 mg Q6H PRN PO 07/12/16 19:15 07/13/16 13:50 (Ativan Inj) 1 mg Q6H PRN IM 07/12/16 19:15 (Tylenol) 650 mg Q4H PRN PO 07/12/16 19:15 07/13/16 13:51 (Milk Of Magnesia Liq) 30 ml DAILY PRN PO 07/12/16 19:15 (Mag-Al Plus Susp Liq) 30 ml Q6H PRN PO 07/12/16 19:15 (Habitrol 21 Mg Patch.24 Hr) 1 patch DAILY T-DERMAL 07/13/16 09:00 07/13/16 09:08 Miscellaneous Information 1 HS T-DERMAL 07/12/16 21:00 07/12/16 20:50 (Protonix) 40 mg DAILY PO 07/13/16 09:00 07/13/16 09:09 (Librium) 10 mg Q8H PRN PO 07/12/16 19:15 07/12/16 20:52 (KCl) 10 meq DAILY PO 07/13/16 09:00 07/13/16 09:09 (Lexapro) 20 mg DAILY PO 07/13/16 09:00 07/13/16 09:09 (SEROquel) 100 mg HS PO 07/12/16 21:00 07/12/16 20:50 (Vitamin B1) 100 mg DAILY PO 07/13/16 09:00 07/13/16 09:09 (Theragran) 1 tab DAILY PO 07/13/16 09:00 07/13/16 09:08 (Macrobid) 100 mg BIDPC PO 07/13/16 18:00 07/20/16 17:59 UNV Family History Dad of a heart attack age 55. Denies any significant family medical history Social History Alcohol use Tobacco use current smoker 1 pack per day Denies illicit drug use Physical Exam Vital Signs Vital Signs Date Time Temp Pulse Resp B/P Pulse Ox O2 Delivery O2 Flow Rate FiO2 07/13/16 05:30 97.6 76 16 124/83 07/12/16 18:35 97.1 72 18 120/79 Physical Exam GENERAL: This is a well-nourished, well-developed patient, in no apparent distress. SKIN: No rashes, ecchymoses or lesions. Cool and dry. HEAD: Atraumatic. Normocephalic. No temporal or scalp tenderness. EYES: Pupils equal round and reactive. Extraocular motions intact. No scleral icterus. No injection or drainage. ENT: Nose without bleeding. Throat without erythema. Uvula midline. Airway patent. NECK: Trachea midline. No JVD or lymphadenopathy. Supple, nontender, no meningeal signs. CARDIOVASCULAR: Regular rate and rhythm without murmurs, gallops, or rubs. RESPIRATORY: Clear to auscultation. Breath sounds equal bilaterally. No wheezes , rales, or rhonchi. GASTROINTESTINAL: Abdomen soft, non-tender, nondistended. No guarding. Bowel sounds active 4 MUSCULOSKELETAL: Extremities without clubbing, cyanosis, or edema. No joint tenderness, effusion, or edema noted. No calf tenderness. Negative Homans sign bilaterally. NEUROLOGICAL: Awake and alert. No focal neuro deficit. Motor and sensory grossly within normal limits. Normal speech. Laboratory Laboratory Tests Test 07/13/16 06:41 Sodium Level 140 Potassium Level 3.8 Chloride Level 105 Carbon Dioxide Level 27.6 Anion Gap 7 Blood Urea Nitrogen 7 Creatinine 0.58 Estimat Glomerular Filtration 110 Rate Random Glucose 82 Hemoglobin A1c 5.2 Calcium Level 8.8 Triglycerides Level 75 Cholesterol Level 183 LDL Cholesterol 82 HDL Cholesterol 86.2 Cholesterol/HDL Ratio 2.12 Thyroid Stimulating Hormone 2.220 3rd Gen Result Diagram: 07/13/16 0641 Assessment and Plan Problem List: (1) UTI (urinary tract infection) ICD Code: N39.0 Status: Acute (2) Major depressive disorder ICD Code: F32.9 Status: Acute (3) Alcohol use disorder ICD Code: F10.99 Status: Acute Assessment and Plan Patient is a 55 year old female with primary medical history of alcoholism, depression who was admitted following alcohol intoxication and feeling depressed and possible suicidal ideation. Patient is now admitted to inpatient psychiatry unit for further evaluation. Consulted for medical management alcohol withdrawal. Urinary tract infection - started on Keflex, will repeat UA. DC Keflex started on Macrobid. - Follow-up results. Alcoholism - patient counseled. Has been on multiple rehabilitation centers. - Thiamine, folic acid - [facility] protocol Depression - managed by psychiatry team Labs reviewed BMP unremarkable, lipid profile unremarkable, hemoglobin A1c 5.2 Thank you for this consultation. We will follow patient with you. Written by Leana Hull, acting as scribe for Dr. Palacios on 07/13/16 at 13:09. The documentation accurately reflects the work performed [id number] by me, Jarad Palacios D.O on 07/13/16 at 13:09. Code Status Full code Discussed Condition With Patient, nursing Problem Qualifiers (1) Major depressive disorder: Leana Moore Jul 13, 2016 14:50 Gutierrez Palacios DO Jul 13, 2016 19:42
[2016-07-13] MEDS: NITROFURANTOIN MONOHYD MACROCR 100 MG CAP PO SCH (17:21)
[2016-07-13 19:00] VITALS: BP 129/83; PULSE 76; PULSE 98; RESP 16; TEMP 97.6; TEMP 99.2
[2016-07-13] MEDS: QUEtiapine FUMARATE 100 MG TAB PO SCH (21:00)
[2016-07-13] MEDS: REMOVE OLD NICOTINE PATCH T-DERMAL SCH (21:00)
[2016-07-14 06:20] VITALS: BP 124/83; PULSE 76; RESP 16; TEMP 98.1
[2016-07-14] MEDS: NICOTINE 21 MG/24 HR PATCH T-DERMAL SCH (08:59)
[2016-07-14] MEDS: THIAMINE HCL 100 MG TAB PO SCH (09:00)
[2016-07-14] MEDS: MULTIVITAMIN TAB PO SCH (09:00)
[2016-07-14] MEDS: ESCITALOPRAM OXALATE 20 MG TAB PO SCH (09:00)
[2016-07-14] MEDS: PANTOPRAZOLE SOD 40 MG DELAYED RELEASE TAB PO SCH (09:00)
[2016-07-14] MEDS: POTASSIUM CHLORIDE 10 MEQ CONTROLLED RELEASE TAB PO SCH (09:00)
[2016-07-14] MEDS: NITROFURANTOIN MONOHYD MACROCR 100 MG CAP PO SCH ×2 (09:00→17:37)
[2016-07-14] MEDS: ACETAMINOPHEN 325 MG TAB PO PRN (09:36)
[2016-07-14] MEDS: LORazepam 1 MG TAB PO PRN ×2 (09:36→21:00)
[2016-07-14] MEDS: QUEtiapine FUMARATE 100 MG TAB PO SCH ×2 (10:30→21:00)
--- NOTE | 2016-07-14 10:30 | HHI.PYPN ---
Subjective Remarks Patient was seen and discussed with the staffing rn. Patient reported that she has been doing okay but she is somewhat concerned and worried about future. She is willing to continue with her AA and follow-up as an outpatient. She denied any suicidal ideation intentions or plan. No behavior or management problem reported. No withdrawal symptoms were observed. Continue with the same treatment. vp celebrity services to assist in aftercare and discharge planning Review of Systems Except as stated in HPI: all other systems reviewed are Neg Psychiatric: COMPLAINS OF: Mood changes, Depression Objective Alert: Yes [place]: Person, Place, Date, Situation Mood: Anxious, Depressed Affect: Labile, Blunted Memory Intact: Recent (impaired) Hallucinations: Other (patient denies any active auditory or visual hallucinations) Delusions: No Delusion Type: Other (no obvious delusional belief at this time) Suicidal: Ideation (patient denies any active suicidal ideation intentions or plan while in the hospital) Homicidal: Ideation (denies) Insight/Judgement Fair Vitals/IOs Vital Signs Date Time Temp Pulse Resp B/P Pulse Ox O2 Delivery O2 Flow Rate FiO2 07/14/16 06:20 98.1 76 16 124/83 Assessment & Plan Problem List: (1) Major depressive disorder ICD Code: F32.9 Assessment & Plan Estimated LOS: days Justification for Cont. Inpt. Risk of decompensation and monitoring of the medication Request HC Surrog/Guard Advoc?: No Problem Qualifiers (1) Major depressive disorder: Toney Mendosa MD Jul 14, 2016 10:29
--- NOTE | 2016-07-14 11:02 | HHI.PR ---
Blank section for building Chart reviewed patient appears medically stable we'll sign off at this time. If patient's condition changes or further assistance is needed placement reconsult. Recommend continue nitrofurantoin to stop date 07/20/2016 and follow-up with PCP after discharge. Thank you Lotus Angeles Jul 14, 2016 11:02
[2016-07-14 18:00] VITALS: BP 116/66; PULSE 80; RESP 15; TEMP 97.6
[2016-07-14] MEDS: REMOVE OLD NICOTINE PATCH T-DERMAL SCH (21:00)
[2016-07-15] MEDS: ACETAMINOPHEN 325 MG TAB PO PRN ×3 (05:25→21:34)
[2016-07-15] MEDS: LORazepam 1 MG TAB PO PRN (05:28)
[2016-07-15 05:59] VITALS: BP 124/75; PULSE 57; RESP 16; TEMP 99.1; O2SAT 98
[2016-07-15] MEDS: PANTOPRAZOLE SOD 40 MG DELAYED RELEASE TAB PO SCH (08:23)
[2016-07-15] MEDS: NICOTINE 21 MG/24 HR PATCH T-DERMAL SCH (08:23)
[2016-07-15] MEDS: NITROFURANTOIN MONOHYD MACROCR 100 MG CAP PO SCH ×2 (08:23→17:06)
[2016-07-15] MEDS: POTASSIUM CHLORIDE 10 MEQ CONTROLLED RELEASE TAB PO SCH (08:24)
[2016-07-15] MEDS: THIAMINE HCL 100 MG TAB PO SCH (08:24)
[2016-07-15] MEDS: MULTIVITAMIN TAB PO SCH (08:24)
[2016-07-15] MEDS: ESCITALOPRAM OXALATE 20 MG TAB PO SCH (08:24)
[2016-07-15] MEDS: QUEtiapine FUMARATE 100 MG TAB PO SCH ×2 (08:24→21:34)
--- NOTE | 2016-07-15 11:40 | HHI.PYPN ---
Subjective Remarks Patient was seen and discussed with the staffing coordinator. Patient was somewhat sleepy and in her room most of the time. She was apologetic for feeling this way. But she claimed that she has been working on finding a place to stay through the sober house living. She is trying to participate in all the therapeutic activity. Denied any suicidal ideation or plan. No behavior or management problem reported. No side effects were complained. Continue with the same treatment. business services tech to assist in aftercare and discharge planning Review of Systems Except as stated in HPI: all other systems reviewed are Neg Psychiatric: COMPLAINS OF: Mood changes, Depression Objective Alert: Yes [place]: Person, Place, Date, Situation Mood: Anxious, Depressed Affect: Labile Memory Intact: Recent (impaired) Hallucinations: Other (patient denies any active auditory or visual hallucinations) Delusions: No Delusion Type: Other (no obvious delusional belief at this time) Suicidal: Ideation (patient denies any active suicidal ideation intentions or plan while in the hospital) Homicidal: Ideation (denies) Insight/Judgement Fair Vitals/IOs Vital Signs Date Time Temp Pulse Resp B/P Pulse Ox O2 Delivery O2 Flow Rate FiO2 07/15/16 05:59 99.1 57 16 124/75 98 Assessment & Plan Problem List: (1) Major depressive disorder ICD Code: F32.9 Assessment & Plan Estimated LOS: days Justification for Cont. Inpt. Monitoring of the medication and risk of decompensation Request HC Surrog/Guard Advoc?: No Problem Qualifiers (1) Major depressive disorder: Toney Mendosa MD Jul 15, 2016 11:40
[2016-07-15 15:47] LABS: BLOOD, URINE NEG (NEG); COMMENT (UR) CULT NOT INDICATED; CULTURE IF INDICATED CULT NOT INDICATED; GLUCOSE,URINE NEG (NEG); KETONE, URINE TRACE mg/dL (NEG); NITRITE,URINE NEG (NEG); PH, URINE 5.5 (5.0-8.5); SQUAMOUS EPITHELIAL CELL URINE 1 /hpf (0-5); URINE COLOR DARK-YELLOW (YELLW/STRAW)
[2016-07-15 18:42] VITALS: BP 96/50; PULSE 89; RESP 18; TEMP 98.4; O2SAT 98
[2016-07-15] MEDS: REMOVE OLD NICOTINE PATCH T-DERMAL SCH (21:00)
[2016-07-16 05:00] VITALS: BP 97/60; PULSE 80; RESP 17; TEMP 97; O2SAT 100
[2016-07-16] MEDS: MULTIVITAMIN TAB PO SCH (09:15)
[2016-07-16] MEDS: POTASSIUM CHLORIDE 10 MEQ CONTROLLED RELEASE TAB PO SCH (09:15)
[2016-07-16] MEDS: PANTOPRAZOLE SOD 40 MG DELAYED RELEASE TAB PO SCH (09:15)
[2016-07-16] MEDS: NITROFURANTOIN MONOHYD MACROCR 100 MG CAP PO SCH ×2 (09:15→18:34)
[2016-07-16] MEDS: ESCITALOPRAM OXALATE 20 MG TAB PO SCH (09:15)
[2016-07-16] MEDS: THIAMINE HCL 100 MG TAB PO SCH (09:15)
[2016-07-16] MEDS: NICOTINE 21 MG/24 HR PATCH T-DERMAL SCH (09:16)
[2016-07-16] MEDS: ACETAMINOPHEN 325 MG TAB PO PRN ×3 (09:19→20:56)
--- NOTE | 2016-07-16 10:26 | HHI.PYPN ---
Subjective Remarks Patient was seen and discussed with the staff pharmacist. Patient claimed that she has been feeling little better but complaints of pain. No withdrawal symptoms reported. Patient tends to isolate herself and keeps to herself. No behavior or management problem reported. Patient denied any suicidal ideation intentions or plan. She was disappointed that she could not stay for 3 days at the [employer]. She is working on some other alternative place. Advised to continue with the same treatment social media campaign manager to assist Review of Systems Except as stated in HPI: all other systems reviewed are Neg Psychiatric: COMPLAINS OF: Mood changes, Depression Objective Alert: Yes [place]: Person, Place, Date, Situation Mood: Anxious, Depressed Affect: Labile Memory Intact: Recent (impaired) Hallucinations: Other (patient denies any active auditory or visual hallucinations) Delusions: No Delusion Type: Other (no obvious delusional belief at this time) Suicidal: Ideation (patient denies any active suicidal ideation intentions or plan while in the hospital) Homicidal: Ideation (denies) Insight/Judgement Fair Labs Test 07/15/16 14:00 Urine Color DARK-YELLOW Urine Turbidity CLEAR Urine pH 5.5 Urine Specific [place] 1.013 Urine Protein NEG mg/dL Urine Glucose (UA) NEG mg/dL Urine Ketones TRACE mg/dL Urine Occult Blood NEG Urine Nitrite NEG Urine Bilirubin NEG Urine Urobilinogen LESS THAN 2.0 MG/DL Urine Leukocyte Esterase TRACE Urine RBC LESS THAN 1 /hpf Urine WBC 1 /hpf Urine Squamous Epithelial 1 /hpf Cells Microscopic Urinalysis Comment CULT NOT INDICATED Vitals/IOs Vital Signs Date Time Temp Pulse Resp B/P Pulse Ox O2 Delivery O2 Flow Rate FiO2 07/16/16 05:00 97.0 80 17 97/60 100 Assessment & Plan Problem List: (1) Major depressive disorder ICD Code: F32.9 Assessment & Plan Estimated LOS: days Justification for Cont. Inpt. Monitoring other medication and risk of decompensation Request HC Surrog/Guard Advoc?: No Problem Qualifiers (1) Major depressive disorder: Toney Mendosa MD Jul 16, 2016 10:26
[2016-07-16] MEDS: hydrOXYzine HCL 25 MG TAB PO PRN (15:53)
[2016-07-16 18:22] VITALS: BP 117/69; PULSE 94; RESP 17; TEMP 98.6; O2SAT 100
[2016-07-16] MEDS: QUEtiapine FUMARATE 100 MG TAB PO SCH (20:56)
[2016-07-16] MEDS: REMOVE OLD NICOTINE PATCH T-DERMAL SCH (21:00)
[2016-07-17 05:10] VITALS: BP_SYST 98; PULSE 74; RESP 18; TEMP 98; O2SAT 67
[2016-07-17] MEDS: ACETAMINOPHEN 325 MG TAB PO PRN ×3 (05:43→22:13)
[2016-07-17] MEDS: NICOTINE 21 MG/24 HR PATCH T-DERMAL SCH (08:37)
[2016-07-17] MEDS: MULTIVITAMIN TAB PO SCH (08:37)
[2016-07-17] MEDS: THIAMINE HCL 100 MG TAB PO SCH (08:37)
[2016-07-17] MEDS: PANTOPRAZOLE SOD 40 MG DELAYED RELEASE TAB PO SCH (08:37)
[2016-07-17] MEDS: NITROFURANTOIN MONOHYD MACROCR 100 MG CAP PO SCH ×2 (08:37→17:38)
[2016-07-17] MEDS: ESCITALOPRAM OXALATE 20 MG TAB PO SCH (08:37)
[2016-07-17] MEDS: POTASSIUM CHLORIDE 10 MEQ CONTROLLED RELEASE TAB PO SCH (08:37)
[2016-07-17] MEDS: hydrOXYzine HCL 25 MG TAB PO PRN ×2 (08:43→16:11)
--- NOTE | 2016-07-17 11:05 | HHI.PYPN ---
Subjective Remarks Patient was seen and discussed with the staffing associate. Patient reported that she has been feeling little better but somewhat is appointed and discouraged because she doesn't have any place to go to. She is afraid that she might revert back to her drinking. Denied any auditory or visual hallucinations. No behavior or management problem reported. No side effects were complained from the medication. Continue with the same treatment. director of managed services to assist Review of Systems Except as stated in HPI: all other systems reviewed are Neg Psychiatric: COMPLAINS OF: Mood changes, Depression Objective Alert: Yes [place]: Person, Place, Date, Situation Mood: Anxious, Depressed Affect: Labile Memory Intact: Recent (impaired) Hallucinations: Other (patient denies any active auditory or visual hallucinations) Delusions: No Delusion Type: Other (no obvious delusional belief at this time) Suicidal: Ideation (patient denies any active suicidal ideation intentions or plan while in the hospital) Homicidal: Ideation (denies) Insight/Judgement Fair Remarks Concentration and attention normal. Gait normal. Language normal. Fund of knowledge average Vitals/IOs Vital Signs Date Time Temp Pulse Resp B/P Pulse Ox O2 Delivery O2 Flow Rate FiO2 07/17/16 05:10 98.0 74 18 98/ 67 Assessment & Plan Problem List: (1) Major depressive disorder ICD Code: F32.9 Assessment & Plan Estimated LOS: days Justification for Cont. Inpt. Risk of decompensation and monitoring of the medication Request HC Surrog/Guard Advoc?: No Problem Qualifiers (1) Major depressive disorder: Toney Mendosa MD Jul 17, 2016 11:05
[2016-07-17 18:58] VITALS: BP 112/63; PULSE 91; RESP 18; TEMP 98.1; O2SAT 98
[2016-07-17] MEDS: REMOVE OLD NICOTINE PATCH T-DERMAL SCH (20:32)
[2016-07-17] MEDS: QUEtiapine FUMARATE 100 MG TAB PO SCH (21:00)
[2016-07-18] MEDS: ACETAMINOPHEN 325 MG TAB PO PRN ×3 (06:43→21:35)
[2016-07-18] MEDS: hydrOXYzine HCL 25 MG TAB PO PRN ×3 (06:43→21:35)
[2016-07-18] MEDS: MULTIVITAMIN TAB PO SCH (09:26)
[2016-07-18] MEDS: PANTOPRAZOLE SOD 40 MG DELAYED RELEASE TAB PO SCH (09:26)
[2016-07-18] MEDS: NICOTINE 21 MG/24 HR PATCH T-DERMAL SCH (09:26)
[2016-07-18] MEDS: THIAMINE HCL 100 MG TAB PO SCH (09:26)
[2016-07-18] MEDS: NITROFURANTOIN MONOHYD MACROCR 100 MG CAP PO SCH ×2 (09:26→17:45)
[2016-07-18] MEDS: POTASSIUM CHLORIDE 10 MEQ CONTROLLED RELEASE TAB PO SCH (09:26)
[2016-07-18] MEDS: ESCITALOPRAM OXALATE 20 MG TAB PO SCH (09:26)
--- NOTE | 2016-07-18 15:50 | HHI.PYPN ---
Subjective Remarks Patient was seen and case discussed with nursing. Patient is pleasant and cooperative with exam. Describes her mood is "up and down." However she is friendly and pleasant. Interacting well with peers. Compliant with her medications. Denies suicidal ideations thought or plan Objective Alert: Yes [place]: Person, Place, Date, Situation Mood: Anxious, Depressed Affect: Labile Memory Intact: Recent (impaired) Hallucinations: Other (patient denies any active auditory or visual hallucinations) Delusions: No Delusion Type: Other (no obvious delusional belief at this time) Suicidal: Ideation (patient denies any active suicidal ideation intentions or plan while in the hospital) Homicidal: Ideation (denies) Insight/Judgement Fair Vitals/IOs Vital Signs Date Time Temp Pulse Resp B/P Pulse Ox O2 Delivery O2 Flow Rate FiO2 07/17/16 18:58 98.1 91 18 112/63 98 Assessment & Plan Problem List: (1) Major depressive disorder ICD Code: F32.9 Assessment & Plan Continue current treatment plan Justification for Cont. Inpt. Patient will decompensate in a less restrictive setting Request HC Surrog/Guard Advoc?: No Problem Qualifiers (1) Major depressive disorder: Cody Samayoa DO Jul 18, 2016 15:50
[2016-07-18 18:46] VITALS: BP 144/81; PULSE 92; RESP 16; TEMP 99.6; O2SAT 99
[2016-07-18] MEDS: REMOVE OLD NICOTINE PATCH T-DERMAL SCH (21:00)
[2016-07-18] MEDS: QUEtiapine FUMARATE 100 MG TAB PO SCH (21:34)
[2016-07-19] MEDS: hydrOXYzine HCL 25 MG TAB PO PRN ×3 (05:36→20:54)
[2016-07-19] MEDS: ACETAMINOPHEN 325 MG TAB PO PRN ×2 (05:37→13:26)
[2016-07-19 06:33] VITALS: BP 104/59; PULSE 76; RESP 16; TEMP 98.2; O2SAT 98
[2016-07-19] MEDS: ESCITALOPRAM OXALATE 20 MG TAB PO SCH (08:06)
[2016-07-19] MEDS: THIAMINE HCL 100 MG TAB PO SCH (08:06)
[2016-07-19] MEDS: MULTIVITAMIN TAB PO SCH (08:06)
[2016-07-19] MEDS: NITROFURANTOIN MONOHYD MACROCR 100 MG CAP PO SCH ×2 (08:06→18:26)
[2016-07-19] MEDS: NICOTINE 21 MG/24 HR PATCH T-DERMAL SCH (08:07)
[2016-07-19] MEDS: POTASSIUM CHLORIDE 10 MEQ CONTROLLED RELEASE TAB PO SCH (08:07)
[2016-07-19] MEDS: PANTOPRAZOLE SOD 40 MG DELAYED RELEASE TAB PO SCH (08:07)
--- NOTE | 2016-07-19 14:49 | HHI.PYPN ---
Subjective Remarks Patient was seen and case discussed with nursing. Patient is bright and cheerful during the interview. Calm and cooperative. Says she took a shower this morning. Describes her mood is "wonderful." Denies suicidal ideations intent or plan. Compliant with medications Objective Alert: Yes [place]: Person, Place, Date, Situation Mood: Anxious, Depressed Affect: Labile Memory Intact: Recent (impaired) Hallucinations: Other (patient denies any active auditory or visual hallucinations) Delusions: No Delusion Type: Other (no obvious delusional belief at this time) Suicidal: Ideation (patient denies any active suicidal ideation intentions or plan while in the hospital) Homicidal: Ideation (denies) Insight/Judgement Fair Vitals/IOs Vital Signs Date Time Temp Pulse Resp B/P Pulse Ox O2 Delivery O2 Flow Rate FiO2 07/19/16 06:33 98.2 76 16 104/59 98 Assessment & Plan Problem List: (1) Major depressive disorder ICD Code: F32.9 Assessment & Plan Continue current treatment plan Justification for Cont. Inpt. Patient will decompensate in a less restrictive setting Request HC Surrog/Guard Advoc?: No Problem Qualifiers (1) Major depressive disorder: Cody Samayoa DO Jul 19, 2016 14:49
[2016-07-19 19:06] VITALS: BP 105/70; PULSE 80; RESP 18; TEMP 98.7; O2SAT 100
[2016-07-19] MEDS: QUEtiapine FUMARATE 100 MG TAB PO SCH (20:54)
[2016-07-19] MEDS: REMOVE OLD NICOTINE PATCH T-DERMAL SCH (21:00)
[2016-07-20 05:22] VITALS: BP 101/58; PULSE 85; RESP 15; TEMP 97.9; O2SAT 97
[2016-07-20] MEDS: hydrOXYzine HCL 25 MG TAB PO PRN (06:17)
[2016-07-20] MEDS: ACETAMINOPHEN 325 MG TAB PO PRN (06:18)
[2016-07-20] MEDS: MULTIVITAMIN TAB PO SCH (08:44)
[2016-07-20] MEDS: THIAMINE HCL 100 MG TAB PO SCH (08:44)
[2016-07-20] MEDS: NITROFURANTOIN MONOHYD MACROCR 100 MG CAP PO SCH (08:44)
[2016-07-20] MEDS: ESCITALOPRAM OXALATE 20 MG TAB PO SCH (08:44)
[2016-07-20] MEDS: PANTOPRAZOLE SOD 40 MG DELAYED RELEASE TAB PO SCH (08:44)
[2016-07-20] MEDS: POTASSIUM CHLORIDE 10 MEQ CONTROLLED RELEASE TAB PO SCH (08:44)
[2016-07-20] MEDS: NICOTINE 21 MG/24 HR PATCH T-DERMAL SCH (08:44)
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
[2016-07-20] MEDS ORDERED: ESCI20TA PO (10:48)
[2016-07-20] MEDS ORDERED: QUET1TAB8 PO (10:48)
== END 2016-07-20 14:15 | disposition home or self-care (01) | DRG 885 ==
LOC: H260 17:00
PROVIDERS: ADMIT Psychiatry & Neurology Psychiatry; ATTEND Psychiatry & Neurology Psychiatry
DX: F33.1 Major depressive disorder, recurrent, moderate (principal); R45.851 Suicidal ideations; N39.0 Urinary tract infection, site not specified; F10.239 Alcohol dependence with withdrawal, unspecified; F10.229 Alcohol dependence with intoxication, unspecified; T51.0X1A Toxic effect of ethanol, accidental (unintentional), initial encounter; Y90.9 Presence of alcohol in blood, level not specified; F17.210 Nicotine dependence, cigarettes, uncomplicated; Z59.0 Homelessness; Z91.14 Patient's other noncompliance with medication regimen
CPT/HCPCS: 80048; 80061; 81001; 83036; 84443

== ENCOUNTER 2016-09-05 13:54 | Emergency (ER) | payer OTHER ==
[~2016-09-05] VITALS: Ht 160 cm; Wt 60.0 kg
[~2016-09-05 13:54] MED LIST changes: +ESCI20TA PO; +QUET1TAB8 PO
[2016-09-05 13:55] VITALS: BP 121/68; PULSE 107; RESP 16; TEMP 98.2; O2SAT 98
[2016-09-05] MEDS ORDERED: LEXA10TA PO (14:08)
[2016-09-05] MEDS ORDERED: PRIL20CA9 PO (14:08)
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
[2016-09-05] MEDS ORDERED: traMADol HCL 50 MG TAB PO ONE (15:15)
[2016-09-05] MEDS ORDERED: PERC5TAB12 PO ×2 (16:00→16:41)
[2016-09-05 16:56] VITALS: BP 123/70
== END 2016-09-05 16:58 | disposition home or self-care (01) ==
LOC: NEPB 13:54
DX: S42.211A Unspecified displaced fracture of surgical neck of right humerus, initial encounter for closed fracture (principal); F32.9 Major depressive disorder, single episode, unspecified; F10.20 Alcohol dependence, uncomplicated; W03.XXXA Other fall on same level due to collision with another person, initial encounter; Y93.89 Activity, other specified; Y92.003 Bedroom of unspecified non-institutional (private) residence as the place of occurrence of the external cause; Y99.9 Unspecified external cause status; F17.210 Nicotine dependence, cigarettes, uncomplicated
CPT/HCPCS: 29240; 73030

== ENCOUNTER 2016-10-01 19:27 | Inpatient (IN) | payer OTHER ==
[~2016-10-01 19:27] MED LIST changes: -ESCI10TA PO; -ESCI20TA PO; +LEXA10TA PO; +PERC5TAB12 PO; -PRIL20CA PO; +PRIL20CA9 PO; -QUET1TAB8 PO; -QUET200 PO; -QUET25 PO; -TRAZ100 PO
[2016-10-01 20:00] VITALS: BP 108/56; PULSE 92; RESP 18; TEMP 97.8; O2SAT 98
[2016-10-01] MEDS ORDERED: SODIUM CHLORIDE 0.9% FLUSH 10 ML FLUSH IVF PRN (20:00)
[2016-10-01 20:05] VITALS: RESP 18; O2SAT 98
[2016-10-01] MEDS ORDERED: SODIUM CHLOR 0.9% 1000 ML INJ 1,000 ML IV ONE ×2 (20:15→21:15)
[2016-10-01 20:56] LABS: AUTOMATED NEUTROPHIL # 5.8 TH/MM3 (1.8-7.7); BASOPHIL # 0.1 TH/MM3 (0-0.2); EOSINOPHIL # 0.1 TH/MM3 (0-0.4); EOSINOPHIL % 1.2 % (0.0-4.0); HEMATOCRIT 33.1 % (35.0-46.0); HEMO FLAGS DIFF FINAL; LYMPH % 39.8 % (9.0-44.0); LYMPHOCYTE # 4.3 TH/MM3 (1.0-4.8); MEAN CELL VOLUME 82.8 FL (80.0-100.0); MEAN CORPUSCULAR HEMOGLOBIN 27.3 PG (27.0-34.0); PLATELET COUNT 517 TH/MM3 (150-450); RED BLOOD COUNT 3.99 MIL/MM3 (4.00-5.30); RED CELL DISTRIBUTION WIDTH 15.4 % (11.6-17.2); WHITE BLOOD COUNT 10.9 TH/MM3 (4.0-11.0)
[2016-10-01 21:00] LABS: AMPHETAMINE, URINE NEG (NEG); BARBITURATES, URINE NEG (NEG); COCAINE, URINE NEG (NEG)
[2016-10-01 21:01] LABS: BACTERIA, URINE RARE /hpf; BLOOD, URINE NEG (NEG); GLUCOSE,URINE NEG (NEG); KETONE, URINE NEG (NEG); NITRITE,URINE NEG (NEG); PH, URINE 6.5 (5.0-8.5); SQUAMOUS EPITHELIAL CELL URINE 1 /hpf (0-5)
[2016-10-01 21:02] LABS: URINE COLOR STRAW (YELLW/STRAW)
[2016-10-01 21:03] LABS: COMMENT (UR) CULT NOT INDICATED; CULTURE IF INDICATED CULT NOT INDICATED
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
[2016-10-01 21:44] VITALS: BP 100/54; PULSE 88; RESP 18; O2SAT 98
[2016-10-01 21:57] LABS: ALKALINE PHOSPHATASE 75 U/L (45-117); ALT (GPT) 16 U/L (10-53); ANION GAP 10 MEQ/L (5-15); AST (GOT) 18 U/L (15-37); BICARBONATE 24.3 MEQ/L (21.0-32.0); BLOOD UREA NITROGEN 2 MG/DL (7-18); CHLORIDE 107 MEQ/L (98-107); GLOMERULAR FILTRATION RATE 90 ML/MIN (>89); POTASSIUM 3.8 MEQ/L (3.5-5.1); SODIUM (NA) 141 MEQ/L (136-145); TOTAL BILIRUBIN ADULT 0.2 MG/DL (0.2-1.0)
[2016-10-01 21:58] LABS: ACETAMINOPHEN LESS THAN 2.0 MCG/ML (10.0-30.0)
--- NOTE | 2016-10-01 22:49 | EKG ---
Date Performed: 10/01/2016 Time Performed: 20:25:06 PTAGE: 51 years EKG: Sinus rhythm NORMAL ECG PREVIOUS TRACING : 01/21/2016 11.05 No significant change from previous tracing noted. DOCTOR: Zaid Villeda Interpretating Date/Time 10/01/2016 22:47:42
[2016-10-02 00:13] VITALS: BP 105/60; PULSE 85; RESP 18; O2SAT 99
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
[2016-10-02] MEDS ORDERED: LORazepam 2 MG/ML VIAL IV PUSH PRN ×4 (09:15)
[2016-10-02] MEDS ORDERED: BENZTROPINE MESYLATE 2 MG/2 ML VIAL IM PRN (09:15)
[2016-10-02] MEDS ORDERED: LORazepam 1 MG TAB PO PRN (09:15)
[2016-10-02] MEDS ORDERED: LORazepam 2 MG TAB PO PRN (09:15)
[2016-10-02] MEDS ORDERED: MAGNESIUM HYDROXIDE SUSP 30 ML CUP PO PRN (09:15)
[2016-10-02] MEDS ORDERED: FLUMAZENIL 0.5 MG/5 ML VIAL IV PUSH PRN (09:15)
[2016-10-02] MEDS ORDERED: BENZTROPINE MESYLATE 1 MG TAB PO PRN (09:15)
[2016-10-02 11:15] VITALS: BP 102/58; PULSE 88; RESP 16; TEMP 98.1; O2SAT 99
[2016-10-02] MEDS: hydrOXYzine HCL 50 MG TAB PO PRN (16:01)
[2016-10-02] MEDS: IBUPROFEN 600 MG TAB PO PRN (16:01)
[2016-10-02 19:16] VITALS: BP 139/77; PULSE 96; RESP 17; TEMP 96.9; O2SAT 98
[2016-10-02] MEDS: QUEtiapine FUMARATE 100 MG TAB PO SCH (21:26)
[2016-10-02] MEDS: ACETAMINOPHEN 325 MG TAB PO PRN (21:27)
[2016-10-03 05:38] VITALS: BP 91/53; PULSE 74; RESP 17; TEMP 97.6; O2SAT 99
[2016-10-03] MEDS: REMOVE OLD PATCH T-DERMAL SCH (09:00)
[2016-10-03] MEDS: FOLIC ACID 1 MG TAB PO SCH (09:08)
[2016-10-03] MEDS: ESCITALOPRAM OXALATE 10 MG TAB PO SCH (09:08)
[2016-10-03] MEDS: PANTOPRAZOLE SOD 20 MG DELAYED RELEASE TAB PO SCH (09:08)
[2016-10-03] MEDS: THIAMINE HCL 100 MG TAB PO SCH (09:08)
[2016-10-03] MEDS: NICOTINE 21 MG/24 HR PATCH T-DERMAL SCH (09:10)
[2016-10-03] MEDS: IBUPROFEN 600 MG TAB PO PRN ×2 (09:13→21:43)
[2016-10-03 09:27] VITALS: BP 107/89; PULSE 89
[2016-10-03 09:33] LABS: LDL CHOLESTEROL 82 MG/DL (0-99)
[2016-10-03 11:09] LABS: HEMOGLOBIN A1b 0.9 %; HEMOGLOBIN Ao 85.7 %; HEMOGLOBIN F 0.8 %; HEMOGLOBIN LA1C 2.1 %; HEMOGLOBIN P3 3.6 %
[2016-10-03] MEDS: ALUMINUM/MAGNESIUM/SIMETH 30 ML CUP PO PRN (13:14)
[2016-10-03] MEDS: hydrOXYzine HCL 50 MG TAB PO PRN ×2 (13:14→21:43)
[2016-10-03 13:49] VITALS: BP 102/87; PULSE 87
[2016-10-03] MEDS: ACETAMINOPHEN 325 MG TAB PO PRN (16:08)
[2016-10-03 18:20] VITALS: BP 113/70; PULSE 93; RESP 17; TEMP 98.2; O2SAT 96
--- NOTE | 2016-10-03 20:51 | HHI.PYPN ---
Subjective Remarks Pt seen and discussed with staff. She remains anxious and depressed and states that she has no desire to live. No medication side effects. No HI. SHe has been out in milieu Objective Alert: Yes [place]: Person, Place, Date, Situation Mood: Anxious, Depressed Affect: Restricted Memory Intact: Immediate, Recent, Remote Hallucinations: Other (none) Delusions: No Delusion Type: Other (none) Suicidal: Ideation (+SI, no plan) Homicidal: Ideation (denies) Insight/Judgment poor Labs Test 10/03/16 08:30 Hemoglobin A1c 5.4 % Triglycerides Level 86 MG/DL Cholesterol Level 147 MG/DL LDL Cholesterol 82 MG/DL HDL Cholesterol 48.0 MG/DL Cholesterol/HDL Ratio 3.06 RATIO Vitals/IOs Vital Signs Date Time Temp Pulse Resp B/P Pulse Ox O2 Delivery O2 Flow Rate FiO2 10/03/16 18:20 98.2 93 17 113/70 96 Assessment & Plan Problem List: (1) Major depressive disorder ICD Code: F32.9 (2) History of alcohol use disorder ICD Code: Z87.898 Assessment & Plan Continue current tx plan., Estimated LOS: days Justification for Cont. Inpt. impairments in safety Request HC Surrog/Guard Advoc?: No Problem Qualifiers (1) Major depressive disorder: Qualified Code: F33.2 - Severe episode of recurrent major depressive disorder, without psychotic features Roxann Ayala MD Oct 03, 2016 20:51
[2016-10-03] MEDS: QUEtiapine FUMARATE 100 MG TAB PO SCH (21:45)
[2016-10-04 05:36] VITALS: BP 116/68; PULSE 73; RESP 16; TEMP 97.8; O2SAT 97
[2016-10-04] MEDS: REMOVE OLD PATCH T-DERMAL SCH (09:00)
[2016-10-04] MEDS: hydrOXYzine HCL 50 MG TAB PO PRN ×3 (09:01→21:27)
[2016-10-04] MEDS: ALUMINUM/MAGNESIUM/SIMETH 30 ML CUP PO PRN (09:01)
[2016-10-04] MEDS: IBUPROFEN 600 MG TAB PO PRN ×2 (09:02→21:27)
[2016-10-04] MEDS: THIAMINE HCL 100 MG TAB PO SCH (09:03)
[2016-10-04] MEDS: NICOTINE 21 MG/24 HR PATCH T-DERMAL SCH (09:03)
[2016-10-04] MEDS: PANTOPRAZOLE SOD 20 MG DELAYED RELEASE TAB PO SCH (09:03)
[2016-10-04] MEDS: FOLIC ACID 1 MG TAB PO SCH (09:03)
[2016-10-04] MEDS: ESCITALOPRAM OXALATE 10 MG TAB PO SCH (09:03)
[2016-10-04] MEDS: ACETAMINOPHEN 325 MG TAB PO PRN (15:04)
[2016-10-04] MEDS: QUEtiapine FUMARATE 100 MG TAB PO SCH (21:26)
--- NOTE | 2016-10-04 22:23 | HHI.PYPN ---
Subjective Remarks Pt seen and discussed with staff. She remains depressed but affect if brighter and more full. She continues to be unable to contract for safety. Coping skills are limited. She is compliant with medications. No agitation on unit,. Objective Alert: Yes [place]: Person, Place, Date, Situation Mood: Depressed Affect: Restricted (a bit brighter) Memory Intact: Immediate, Recent, Remote Hallucinations: Other (none) Delusions: No Delusion Type: Other (none) Suicidal: Ideation (+SI, no plan) Homicidal: Ideation (denies) Insight/Judgment poor Vitals/IOs Vital Signs Date Time Temp Pulse Resp B/P Pulse Ox O2 Delivery O2 Flow Rate FiO2 10/04/16 05:36 97.8 73 16 116/68 97 Assessment & Plan Problem List: (1) Major depressive disorder ICD Code: F32.9 (2) History of alcohol use disorder ICD Code: Z87.898 Assessment & Plan Continue current tx plan. Estimated LOS: days Justification for Cont. Inpt. impairments in safety Request HC Surrog/Guard Advoc?: No Problem Qualifiers (1) Major depressive disorder: Qualified Code: F33.2 - Severe episode of recurrent major depressive disorder, without psychotic features Roxann Ayala MD Oct 04, 2016 22:23
[2016-10-04] MEDS: diphenhydrAMINE HCL 50 MG CAP PO PRN (22:52)
[2016-10-05 02:30] VITALS: BP 119/73; PULSE 76; RESP 20; TEMP 97.6; O2SAT 99
[2016-10-05 07:38] VITALS: BP 128/58; PULSE 60; RESP 18; TEMP 97.7; O2SAT 98
[2016-10-05] MEDS: REMOVE OLD PATCH T-DERMAL SCH (09:00)
[2016-10-05] MEDS: FOLIC ACID 1 MG TAB PO SCH (09:06)
[2016-10-05] MEDS: THIAMINE HCL 100 MG TAB PO SCH (09:06)
[2016-10-05] MEDS: ESCITALOPRAM OXALATE 10 MG TAB PO SCH (09:06)
[2016-10-05] MEDS: PANTOPRAZOLE SOD 20 MG DELAYED RELEASE TAB PO SCH (09:06)
[2016-10-05] MEDS: NICOTINE 21 MG/24 HR PATCH T-DERMAL SCH (09:06)
[2016-10-05] MEDS: IBUPROFEN 600 MG TAB PO PRN ×2 (09:34→22:06)
[2016-10-05] MEDS: hydrOXYzine HCL 50 MG TAB PO PRN ×2 (13:34→21:43)
[2016-10-05] MEDS: ACETAMINOPHEN 325 MG TAB PO PRN (13:34)
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
[2016-10-05] MEDS ORDERED: PILL SPLITTER OTHER PRN (15:00)
[2016-10-05 20:08] VITALS: BP 121/75; PULSE 86; RESP 18; TEMP 98.4; O2SAT 100
[2016-10-05] MEDS: QUEtiapine FUMARATE 100 MG TAB PO SCH (21:43)
[2016-10-05] MEDS: diphenhydrAMINE HCL 50 MG CAP PO PRN (21:44)
[2016-10-06 06:32] VITALS: BP 138/84; PULSE 72; RESP 18; TEMP 98.3; O2SAT 97
[2016-10-06] MEDS: FOLIC ACID 1 MG TAB PO SCH (08:24)
[2016-10-06] MEDS: IBUPROFEN 600 MG TAB PO PRN ×2 (08:24→20:56)
[2016-10-06] MEDS: NICOTINE 21 MG/24 HR PATCH T-DERMAL SCH (08:24)
[2016-10-06] MEDS: ESCITALOPRAM OXALATE 10 MG TAB PO SCH (08:25)
[2016-10-06] MEDS: PANTOPRAZOLE SOD 20 MG DELAYED RELEASE TAB PO SCH (08:25)
[2016-10-06] MEDS: hydrOXYzine HCL 50 MG TAB PO PRN ×3 (08:25→20:55)
[2016-10-06] MEDS: THIAMINE HCL 100 MG TAB PO SCH (08:25)
[2016-10-06] MEDS: REMOVE OLD PATCH T-DERMAL SCH (09:00)
--- NOTE | 2016-10-06 13:21 | HHI.PYPN ---
Subjective Remarks Patient seen in [facility] with floor staff, chart reviewed. Patient states she slept satisfactorily last night. Some diminution of her restless leg also. We will continue medication no change night to see if her improvement continues. Patient denies suicidality voices or visions at this time Review of Systems Except as stated in HPI: all other systems reviewed are Neg Objective Alert: Yes [place]: Person, Place, Date, Situation Mood: Depressed Affect: Restricted (a bit brighter) Memory Intact: Immediate, Recent, Remote Hallucinations: Other (none) Delusions: No Delusion Type: Other (none) Suicidal: Ideation (+SI, no plan) Homicidal: Ideation (denies) Insight/Judgment Poor Vitals/IOs Vital Signs Date Time Temp Pulse Resp B/P Pulse Ox O2 Delivery O2 Flow Rate FiO2 10/06/16 06:32 98.3 72 18 138/84 97 Assessment & Plan Problem List: (1) Major depressive disorder ICD Code: F32.9 (2) History of alcohol use disorder ICD Code: Z87.898 Assessment & Plan Estimated LOS: days patient continues depressed though somewhat softer, now denies voices. Compliant medication Justification for Cont. Inpt. At this time patient decompensate if placed in a lower level of care Discharge Planning To be determined Request HC Surrog/Guard Advoc?: No Problem Qualifiers (1) Major depressive disorder: Qualified Code: F33.2 - Severe episode of recurrent major depressive disorder, without psychotic features Christopher Lr MD Oct 06, 2016 13:21
[2016-10-06] MEDS: ACETAMINOPHEN 325 MG TAB PO PRN (15:59)
[2016-10-06 19:00] VITALS: BP 105/71; PULSE 104; RESP 18; TEMP 99.1; O2SAT 100
[2016-10-06] MEDS: QUEtiapine FUMARATE 100 MG TAB PO SCH (20:54)
[2016-10-06] MEDS: diphenhydrAMINE HCL 50 MG CAP PO PRN (20:55)
[2016-10-07 06:30] VITALS: BP 120/58; PULSE 62; RESP 18; TEMP 97.8; O2SAT 95
[2016-10-07] MEDS: PANTOPRAZOLE SOD 20 MG DELAYED RELEASE TAB PO SCH (08:26)
[2016-10-07] MEDS: NICOTINE 21 MG/24 HR PATCH T-DERMAL SCH (08:26)
[2016-10-07] MEDS: REMOVE OLD PATCH T-DERMAL SCH (08:26)
[2016-10-07] MEDS: THIAMINE HCL 100 MG TAB PO SCH (08:26)
[2016-10-07] MEDS: ESCITALOPRAM OXALATE 10 MG TAB PO SCH (08:26)
[2016-10-07] MEDS: hydrOXYzine HCL 50 MG TAB PO PRN ×2 (08:26→15:11)
[2016-10-07] MEDS: IBUPROFEN 600 MG TAB PO PRN (08:27)
[2016-10-07] MEDS: FOLIC ACID 1 MG TAB PO SCH (08:27)
--- NOTE | 2016-10-07 12:18 | HHI.PYPN ---
Subjective Remarks Patient seen in [facility] with nurse Claudia, patient continues somewhat anxious but states she has had conversations with the staff from the [facility] in [place] that may have a bed for her today. She is quite concerned though if she is discharged today and no bed is available attribute homeless which requires her increased depression with possible increased suicidal ideation. Patient does feel safe here. Has been compliant with her medications. For now will order discharge when bed available at [facility] Review of Systems Except as stated in HPI: all other systems reviewed are Neg Objective Alert: Yes [place]: Person, Place, Date, Situation Mood: Depressed Affect: Restricted (a bit brighter) Memory Intact: Immediate, Recent, Remote Hallucinations: Other (none) Delusions: No Delusion Type: Other (none) Suicidal: Ideation (+SI, no plan) Homicidal: Ideation (denies) Insight/Judgment Poor Vitals/IOs Vital Signs Date Time Temp Pulse Resp B/P Pulse Ox O2 Delivery O2 Flow Rate FiO2 10/07/16 06:30 97.8 62 18 120/58 95 Assessment & Plan Problem List: (1) Major depressive disorder ICD Code: F32.9 (2) History of alcohol use disorder ICD Code: Z87.898 Assessment & Plan Estimated LOS: days it appears patient may have a bed available at a [facility] all right discharge order for patient to be discharged there is a bed becomes available. Otherwise patient to continue treatment here Justification for Cont. Inpt. At this time patient decompensate placed in a lower level of care but did not have appropriate domestic [facility] Discharge Planning To be determined Request HC Surrog/Guard Advoc?: No Problem Qualifiers (1) Major depressive disorder: Qualified Code: F33.2 - Severe episode of recurrent major depressive disorder, without psychotic features Christopher Lr MD Oct 07, 2016 12:18
[2016-10-07] MEDS ORDERED: ESCI10TA PO (12:23)
[2016-10-07] MEDS ORDERED: VITA100T2 PO (12:23)
[2016-10-07] MEDS ORDERED: PANT20 PO (12:23)
[2016-10-07] MEDS ORDERED: FOLI1TAB4 PO (12:23)
[2016-10-07] MEDS ORDERED: SERO50TA PO (12:23)
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
[2016-10-07] MEDS: ACETAMINOPHEN 325 MG TAB PO PRN (15:11)
== END 2016-10-07 15:25 | disposition home or self-care (01) | DRG 885 ==
LOC: NEPC 19:27 → NEDA 10-02 09:09 → H260 10-02 11:15
PROVIDERS: ADMIT Psychiatry & Neurology Psychiatry; ATTEND Psychiatry & Neurology Psychiatry
DX: F33.1 Major depressive disorder, recurrent, moderate (principal); R45.851 Suicidal ideations; F10.229 Alcohol dependence with intoxication, unspecified; Z59.0 Homelessness; Z91.410 Personal history of adult physical and sexual abuse; F17.210 Nicotine dependence, cigarettes, uncomplicated; Y90.8 Blood alcohol level of 240 mg/100 ml or more; T49.0X2A Poisoning by local antifungal, anti-infective and anti-inflammatory drugs, intentional self-harm, initial encounter; G25.81 Restless legs syndrome
CPT/HCPCS: 80053; 80061; 80307; 81001; 83036; 85025; 93005; 96360; 96361; J7030; Q0163

== ENCOUNTER 2016-10-13 17:43 | Emergency (ER) | payer OTHER ==
[~2016-10-13] VITALS: Ht 157.5 cm; Wt 60.0 kg
[~2016-10-13 17:43] MED LIST changes: +ESCI10TA PO; +FOLI1TAB4 PO; +PANT20 PO; -PRIL20CA9 PO; +SERO50TA PO; +VITA100T2 PO
[2016-10-13 18:03] VITALS: PULSE 79; RESP 16; TEMP 97.8; O2SAT 97
[2016-10-13] MEDS ORDERED: SODIUM CHLOR 0.9% 1000 ML INJ 1,000 ML IV SCH (18:06)
[2016-10-13 18:08] VITALS: O2SAT 97
[2016-10-13] MEDS ORDERED: SODIUM CHLORIDE 0.9% FLUSH 10 ML FLUSH IVF PRN (18:15)
[2016-10-13 18:17] VITALS: BP 118/73; PULSE 71; RESP 16; O2SAT 97
[2016-10-13 18:19] LABS: AUTOMATED NEUTROPHIL # 3.8 TH/MM3 (1.8-7.7); BASOPHIL # 0.1 TH/MM3 (0-0.2); EOSINOPHIL # 0.1 TH/MM3 (0-0.4); EOSINOPHIL % 1.5 % (0.0-4.0); HEMATOCRIT 35.3 % (35.0-46.0); HEMO FLAGS DIFF FINAL; LYMPH % 45.5 % (9.0-44.0); LYMPHOCYTE # 3.7 TH/MM3 (1.0-4.8); MEAN CELL VOLUME 81.5 FL (80.0-100.0); MEAN CORPUSCULAR HEMOGLOBIN 26.4 PG (27.0-34.0); MEAN CORPUSCULAR HGB CONC 32.3 % (32.0-36.0); MONO % 4.4 % (0.0-8.0); NEUT % 47.6 % (16.0-70.0); PLATELET COUNT 457 TH/MM3 (150-450); RED BLOOD COUNT 4.33 MIL/MM3 (4.00-5.30); RED CELL DISTRIBUTION WIDTH 15.4 % (11.6-17.2)
--- NOTE | 2016-10-13 18:37 | RADRPT ---
EXAM DATE/TIME: 10/13/2016 18:24 [facility] COMPARISON: CHEST SINGLE AP, February 16, 2016, 14:05. INDICATIONS : Chest pain. MEDICAL HISTORY : None. SURGICAL HISTORY : None. ENCOUNTER: Initial ACUITY: 1 day PAIN SCORE: 0/10 LOCATION: Bilateral chest FINDINGS: A single view of the chest demonstrates the lungs to be symmetrically aerated without evidence of mas s, infiltrate or effusion. The Small hiatal hernia.cardiomediastinal contours are unremarkable. Oss eous structures are intact. CONCLUSION: No acute disease. Small hiatal hernia. Stanislaw Yanez MD on October 13, 2016 at 18:35 Board Certified Radiologist. This report was verified electronically.
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
--- NOTE | 2016-10-13 18:44 | RADRPT ---
EXAM DATE/TIME: 10/13/2016 18:32 [facility] COMPARISON: CT BRAIN W/O CONTRAST, December 29, 2015, 13:42. INDICATIONS : Altered mental status. RADIATION DOSE: 30.94 CTDIvol (mGy) MEDICAL HISTORY : Cardiovascular disease. Seizures. Diabetes mellitus type 1. SURGICAL HISTORY : None. ENCOUNTER: Initial ACUITY: 1 day PAIN SCALE: 0/10 LOCATION: cranial TECHNIQUE: Multiple contiguous axial images were obtained of the head. Using automated exposure control and adj ustment of the mA and/or kV according to patient size, radiation dose was kept as low as reasonably a chievable to obtain optimal diagnostic quality images. FINDINGS: CEREBRUM: The ventricles are normal for age. Lacune again seen within the medial temporal lobe a left, stable. No evidence of midline shift, mass lesion, hemorrhage or acute infarction. No extra-axial fluid norma ections are seen. POSTERIOR FOSSA: The cerebellum and brainstem are intact. The 4th ventricle is midline. The cerebellopontine angle i s unremarkable. EXTRACRANIAL: The visualized portion of the orbits is intact. SKULL: The calvaria is intact. No evidence of skull fracture. CONCLUSION: No acute intracranial disease. Stanislaw Yanez MD on October 13, 2016 at 18:40 Board Certified Radiologist. This report was verified electronically.
[2016-10-13 18:45] LABS: ALKALINE PHOSPHATASE 78 U/L (45-117); ALT (GPT) 20 U/L (10-53); ANION GAP 13 MEQ/L (5-15); AST (GOT) 20 U/L (15-37); BICARBONATE 24.4 MEQ/L (21.0-32.0); BLOOD UREA NITROGEN 9 MG/DL (7-18); CHLORIDE 109 MEQ/L (98-107); GLOMERULAR FILTRATION RATE 100 ML/MIN (>89); POTASSIUM 3.6 MEQ/L (3.5-5.1); SODIUM (NA) 146 MEQ/L (136-145); TOTAL BILIRUBIN ADULT 0.2 MG/DL (0.2-1.0)
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
[2016-10-14] VITALS: BP 103/59; PULSE 87; RESP 20; TEMP 98.5; O2SAT 95
[2016-10-14 04:00] VITALS: BP 104/62; PULSE 86; RESP 18; TEMP 98.4; O2SAT 96
[2016-10-14 08:52] LABS: BACTERIA, URINE MOD /hpf; BLOOD, URINE NEG (NEG); GLUCOSE,URINE NEG (NEG); KETONE, URINE NEG (NEG); MUCUS URINE FEW /lpf (OCC); NITRITE,URINE NEG (NEG); PH, URINE 7.5 (5.0-8.5); SQUAMOUS EPITHELIAL CELL URINE 3 /hpf (0-5); URINE COLOR YELLOW (YELLW/STRAW)
[2016-10-14 09:00] LABS: COMMENT (UR) CATH-CULTURE IND; CULTURE IF INDICATED CATH CULTURE IND
[2016-10-14 09:04] LABS: AMPHETAMINE, URINE NEG (NEG); BARBITURATES, URINE NEG (NEG); COCAINE, URINE NEG (NEG)
--- NOTE | 2016-10-14 10:50 | EKG ---
Date Performed: 10/13/2016 Time Performed: 18:15:03 PTAGE: 51 years EKG: Sinus rhythm NORMAL ECG Compared to prior tracing no significant change DOCTOR: Stephanie Sousa Interpretating Date/Time 10/14/2016 10:49:03
== END 2016-10-14 10:26 | disposition home or self-care (01) ==
LOC: NEPE 17:43 → NEPB 10-14 10:26
DX: F10.120 Alcohol abuse with intoxication, uncomplicated (principal); N39.0 Urinary tract infection, site not specified; B96.29 Other Escherichia coli [E. coli] as the cause of diseases classified elsewhere; R07.9 Chest pain, unspecified; Y90.8 Blood alcohol level of 240 mg/100 ml or more
CPT/HCPCS: 70450; 71010; 80053; 80307; 81001; 84484; 85025; 87077; 87086; 87186; 93005

== ENCOUNTER 2016-10-14 15:16 | Emergency (ER) | payer OTHER ==
[~2016-10-14] VITALS: Ht 165.1 cm; Wt 54.5 kg
[2016-10-14] MEDS ORDERED: AMMONIA AROMATIC INHALANT 0.33 ML ONE (15:19)
[2016-10-14 15:20] VITALS: BP 99/64; PULSE 87; RESP 18; TEMP 98.3; O2SAT 97
[2016-10-14] MEDS ORDERED: SODIUM CHLOR 0.9% 1000 ML INJ 1,000 ML IV SCH ×2 (15:25→16:45)
[2016-10-14] MEDS ORDERED: AMMONIA AROMATIC INHALANT 0.33 ML NASAL ONE (15:30)
[2016-10-14] MEDS ORDERED: SODIUM CHLORIDE 0.9% FLUSH 10 ML FLUSH IVF PRN (15:30)
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
[2016-10-14 15:33] VITALS: BP 99/64; PULSE 80; RESP 14; TEMP 98.3; O2SAT 97
[2016-10-14 15:37] VITALS: BP 98/62; PULSE 86; RESP 16; O2SAT 96
[2016-10-14 15:45] LABS: BLOOD GAS BASE EXCESS -3.1 mmol/L (-2-2); BLOOD GAS CARBOXYHEMOGLOBIN 9.3 % (0-4); BLOOD GAS HCO3 21 mmol/L (22-26); BLOOD GAS METHEMOGLOBIN 0.5 % (0-2); BLOOD GAS O2 HGB SATURATION 88 % (90-100); BLOOD GAS OXYGEN CONTENT 13.4 Vol % (12.0-20.0); BLOOD GAS PCO2 32 mmHg (38-42); BLOOD GAS PO2 97 mmHG (61-120); BLOOD GAS TOTAL HGB 10.7 G/DL (12.0-16.0); CRITICAL VALUE YES; DRAW SITE LT RADIAL; FIO2 21 %; NUMBER OF ARTERIAL PUNCTURES 1; OXYGEN DEVICE ROOM AIR; STAT YES; TEMP CORR TO 98.6; ULNAR PULSE Y
[2016-10-14 16:32] LABS: AUTOMATED NEUTROPHIL # 8.8 TH/MM3 (1.8-7.7); BASOPHIL # 0.1 TH/MM3 (0-0.2); BASOPHIL % 0.6 % (0.0-2.0); EOSINOPHIL % 0.2 % (0.0-4.0); HEMATOCRIT 35.1 % (35.0-46.0); HEMO FLAGS DIFF FINAL; LYMPH % 22.6 % (9.0-44.0); LYMPHOCYTE # 2.8 TH/MM3 (1.0-4.8); MEAN CELL VOLUME 82.2 FL (80.0-100.0); MEAN CORPUSCULAR HEMOGLOBIN 26.6 PG (27.0-34.0); MEAN CORPUSCULAR HGB CONC 32.3 % (32.0-36.0); MONO % 4.8 % (0.0-8.0); NEUT % 71.8 % (16.0-70.0); PLATELET COUNT 432 TH/MM3 (150-450); RED BLOOD COUNT 4.27 MIL/MM3 (4.00-5.30); RED CELL DISTRIBUTION WIDTH 15.6 % (11.6-17.2); WHITE BLOOD COUNT 12.2 TH/MM3 (4.0-11.0)
[2016-10-14 16:44] LABS: ANION GAP 13 MEQ/L (5-15)
[2016-10-14 16:46] LABS: ALKALINE PHOSPHATASE 87 U/L (45-117); ALT (GPT) 26 U/L (10-53); AST (GOT) 30 U/L (15-37); BLOOD UREA NITROGEN 7 MG/DL (7-18); CHLORIDE 107 MEQ/L (98-107); GLOMERULAR FILTRATION RATE 98 ML/MIN (>89); SODIUM (NA) 141 MEQ/L (136-145); TOTAL BILIRUBIN ADULT 0.3 MG/DL (0.2-1.0)
[2016-10-14 16:56] LABS: POTASSIUM 2.9 MEQ/L (3.5-5.1)
[2016-10-14] MEDS: POTASSIUM CHLOR 20 MEQ PREMIX 100 ML IV SCH ×2 (17:24→19:10)
[2016-10-14 17:25] VITALS: BP 90/56; PULSE 71; RESP 12; O2SAT 99
[2016-10-14 19:12] VITALS: BP 99/68; PULSE 66; RESP 14; O2SAT 100
[2016-10-14 23:36] VITALS: BP 122/79; PULSE 71; RESP 16; O2SAT 97
[2016-10-15 05:42] VITALS: BP 114/70; PULSE 79; RESP 16; TEMP 98.4; O2SAT 99
--- NOTE | 2016-10-15 17:48 | EKG ---
Date Performed: 10/14/2016 Time Performed: 15:18:55 PTAGE: 51 years EKG: Sinus rhythm PROLONGED QT INTERVAL ABNORMAL ECG INTERPRETATION BASED ON A DEFAULT AGE OF 40 YEARS Compared to talisha or study, QT interval has lengthened. PREVIOUS TRACING : 10/13/2016 18.15 DOCTOR: Khalif Kramer Interpretating Date/Time 10/15/2016 17:48:08
== END 2016-10-15 09:05 | disposition home or self-care (01) ==
LOC: NEPC 15:16 → NEPD 10-15 09:05
DX: F10.129 Alcohol abuse with intoxication, unspecified (principal); D72.829 Elevated white blood cell count, unspecified; E87.6 Hypokalemia; I45.81 Long QT syndrome; F17.210 Nicotine dependence, cigarettes, uncomplicated
CPT/HCPCS: 36600; 80053; 82805; 85025; 93005; 96361; 96365; 96366; 99285; J3480; J7030; 80307

== ENCOUNTER 2016-11-03 23:38 | Emergency (ER) | payer SELFPAY ==
[~2016-11-03] VITALS: Ht 160 cm; Wt 55.0 kg
[2016-11-03 23:40] VITALS: BP 110/75; PULSE 86; RESP 16; TEMP 98.7; O2SAT 98
--- NOTE | 2016-11-03 23:50 | PD ---
HPI . Acute intoxication Chief Complaint: Alcohol/Drug Intoxication Time Seen by Provider: 23:47 Travel History International Travel<30 days: No Contact w/Intl Traveler<30days: No Traveled to known affect area: No History of Present Illness HPI Patient is brought in as a Jan's act for acute alcohol intoxication. PFSH Past Medical History Musculoskeletal: Yes (R SHOULDER FX) ?: Not Social History Alcohol Use: Yes Tobacco Use: Yes Substance Use: No Allergies-Medications (Allergen,Severity, Reaction): Coded Allergies: *MDRO Multi-Drug Resistant Organism (Verified Adverse Reaction, Unknown, ) ESBL+E.Coli (urine)-07/08/16 Reported Meds & Prescriptions Reported Meds & Active Scripts Active Active Prescriptions or Reported Medications Unobtainable Review of Systems ROS Limitations: Intoxication Physical Exam Narrative GENERAL: Tearful. SKIN: Warm and dry. HEAD: Atraumatic. Normocephalic. EYES: Pupils equal and round. NECK: Trachea midline. CARDIOVASCULAR: Regular rate and rhythm. RESPIRATORY: No accessory muscle use. MUSCULOSKELETAL: No obvious deformities. No edema. NEUROLOGICAL: Awake and alert. No obvious cranial nerve deficits. Motor grossly within normal limits. Normal speech. PSYCHIATRIC: Poor insight and judgment. Acute intoxication. Data Data Last Documented VS Vital Signs Date Time Temp Pulse Resp B/P Pulse Ox O2 Delivery O2 Flow Rate FiO2 11/03/16 23:40 98.7 86 16 110/75 98 MDM Medical Decision Making Medical Screen Exam Complete: Yes Emergency Medical Condition: Yes Differential Diagnosis Differential diagnosis of altered mental status includes but is not limited to infection, electrolyte abnormality, neurological event, intoxication Narrative Course Patient is brought in as a Jan's act for acute intoxication. She will be observed here until she is sober enough for discharge. Diagnosis Primary Impression: Acute alcohol intoxication Qualified Code: F10.920 - Acute alcohol intoxication, uncomplicated Scripts Unable to Obtain Active Prescriptions or Reported Meds Disposition: DISCHARGE HOME Condition: Stable Brenda Rueda MD November 03, 2016 23:50
[2016-11-05] MEDS ORDERED: BACT800T5 PO (16:00)
== END 2016-11-04 06:32 | disposition home or self-care (01) ==
LOC: MERGE 23:38 → NEPD 23:38
DX: F10.129 Alcohol abuse with intoxication, unspecified (principal); Z72.0 Tobacco use
CPT/HCPCS: 99284

== ENCOUNTER 2016-11-05 12:19 | Inpatient (IN) | payer SELFPAY ==
[~2016-11-05] VITALS: Ht 160 cm; Wt 55.5 kg
[2016-11-05 12:25] VITALS: BP 119/77; PULSE 112; RESP 17; TEMP 98.6; O2SAT 98
[2016-11-05] MEDS ORDERED: SODIUM CHLOR 0.9% 1000 ML INJ 1,000 ML IV SCH (12:27)
[2016-11-05] MEDS ORDERED: SODIUM CHLORIDE 0.9% FLUSH 5 ML FLUSH IV FLUSH PRN (12:30)
[2016-11-05 12:31] VITALS: O2SAT 97
--- NOTE | 2016-11-05 12:50 | RADRPT ---
EXAM DATE/TIME: 11/05/2016 12:25 [facility] COMPARISON: CHEST SINGLE AP, July 09, 2016, 4:11. INDICATIONS : Syncope Altered mental status MEDICAL HISTORY : fracture right humerus SURGICAL HISTORY : None. ENCOUNTER: Initial ACUITY: 1 day PAIN SCORE: Non-responsive. LOCATION: Bilateral chest FINDINGS: The cardiac silhouette is normal in transverse diameter. The lungs are free of acute parenchymal opac ity. No effusions are identified. The aortic knob is prominent with tortuosity of the descending thor acic aorta. Right humeral neck fracture is present. CONCLUSION: 1. No acute cardiopulmonary disease. Khalif Hall MD on November 05, 2016 at 12:48 Board Certified Radiologist. This report was verified electronically.
[2016-11-05 13:02] LABS: AUTOMATED NEUTROPHIL # 6.4 TH/MM3 (1.8-7.7); BASOPHIL % 0.3 % (0.0-2.0); EOSINOPHIL # 0.1 TH/MM3 (0-0.4); EOSINOPHIL % 1.1 % (0.0-4.0); HEMATOCRIT 36.3 % (35.0-46.0); HEMO FLAGS DIFF FINAL; LYMPH % 26.6 % (9.0-44.0); LYMPHOCYTE # 2.6 TH/MM3 (1.0-4.8); MEAN CORPUSCULAR HEMOGLOBIN 26.1 PG (27.0-34.0); MEAN CORPUSCULAR HGB CONC 31.8 % (32.0-36.0); MONO % 7.6 % (0.0-8.0); NEUT % 64.4 % (16.0-70.0); PLATELET COUNT 472 TH/MM3 (150-450); RED BLOOD COUNT 4.43 MIL/MM3 (4.00-5.30); RED CELL DISTRIBUTION WIDTH 16.4 % (11.6-17.2); WHITE BLOOD COUNT 9.9 TH/MM3 (4.0-11.0)
--- NOTE | 2016-11-05 13:03 | PD ---
HPI Chief Complaint: Altered Mental Status Time Seen by Provider: 12:27 Travel History International Travel<30 days: No Contact w/Intl Traveler<30days: No Traveled to known affect area: No History of Present Illness HPI This is a 51-year-old female with history of alcohol abuse, previous right shoulder fracture, tobaccoism, poor social situation, who presents via EMS with complaints of being found intoxicated. The patient reportedly was found with a half empty bottle of hand filler shaker. She is stuporous and emotional with fits of crying. She reports that she was trying to kill herself. Very stuporous however is able to answer some questions. She is very tearful and emotional. She reports to being an alcoholic and also reports that she did drink hand filler shaker today. She denies any drugs of abuse. She does report that she smokes cigarettes. PFSH Past Medical History Musculoskeletal: Yes (R SHOULDER FX) ?: Not Social History Alcohol Use: Yes Tobacco Use: Yes Substance Use: No Allergies-Medications (Allergen,Severity, Reaction): Coded Allergies: *MDRO Multi-Drug Resistant Organism (Verified Adverse Reaction, Unknown, ) ESBL+E.Coli (urine)-07/08/16 Reported Meds & Prescriptions Reported Meds & Active Scripts Active Bactrim DS (Sulfamethoxazole-Trimethoprim) 800-160 Mg Tab 1 Tab PO BID Review of Systems ROS Limitations: Clinical Condition, Intoxication, Altered Mental Status Except as stated in HPI: all other systems reviewed are Neg HENT: No: Headaches, Neck Pain Cardiovascular: No: Chest Pain or Discomfort, Palpitations Respiratory: No: Cough, Shortness of Breath Gastrointestinal: No: Nausea, Vomiting, Abdominal Pain Musculoskeletal: Positive: Pain (previous right shoulder fracture. Patient reports chronic pain in her right shoulder.), No: Weakness Neurologic: Positive: Weakness, Change in Mentation, No: Dizziness, Headache Physical Exam Narrative GENERAL: Disheveled appearing female in no acute respiratory distress. SKIN: Focused skin assessment warm/dry. HEAD: Atraumatic. Normocephalic. EYES: No scleral icterus. No injection or drainage. ENT: No nasal bleeding or discharge. Mucous membranes pink and moist. NECK: Trachea midline. No JVD. Supple. CARDIOVASCULAR: Regular rate and rhythm. No murmur appreciated. RESPIRATORY: No accessory muscle use. Clear to auscultation. Breath sounds equal bilaterally. Limited secondary to decreased respiratory effort. GASTROINTESTINAL: Abdomen soft, non-tender, nondistended. MUSCULOSKELETAL: Patient has a sling on her right shoulder. This is from a previous injury. There is no new injury. She has dirt and grime all of her hands and feet. NEUROLOGICAL: Awake and appears intoxicated. No obvious cranial nerve deficits. Motor grossly within normal limits. Normal speech. PSYCHIATRIC: Appropriate mood and affect; insight and judgment normal. Data Data Last Documented VS Vital Signs Date Time Temp Pulse Resp B/P Pulse Ox O2 Delivery O2 Flow Rate FiO2 11/05/16 14:16 102 145/87 97 11/05/16 12:31 Room Air 11/05/16 12:25 98.6 17 Orders Electrocardiogram (11/05/16 12:27) Complete Blood Count With Diff (11/05/16 12:27) Comprehensive Metabolic Panel (11/05/16 12:27) Urinalysis - C+S If Indicated (11/05/16 12:) Chest, Single Ap (11/05/16 12:27) Ct Brain W/O Iv Contrast(Rout) (11/05/16 12:27) Blood Glucose (11/05/16 12:27) Ecg Monitoring (11/05/16 12:27) Iv Access Insert/Monitor (11/05/16 12:27) Oximetry (11/05/16 12:27) Sodium Chloride 0.9% Flush (Ns Flush) (11/05/16 12:30) Sodium Chlor 0.9% 1000 Ml Inj (Ns 1000 M (11/05/16 12:27) Drug Screen, Random Urine (11/05/16 12:27) Alcohol (Ethanol) (11/05/16 12:27) Potassium Chloride Powder (Kcl Powder) (11/05/16 14:30) Thiamine (Vit B1) (Vitamin B1) (11/05/16 14:30) Folic Acid (Folate) (11/05/16 14:30) Multivitamin (Theragran) (11/05/16 14:30) Alcohol Withdrawal Asmt-Ciwa ONCE (11/05/16 14:36) Flumazenil Inj (Romazicon Inj) (11/05/16 14:45) Lorazepam (Ativan) (11/05/16 14:45) Lorazepam Inj (Ativan Inj) (11/05/16 14:45) Lorazepam (Ativan) (11/05/16 14:45) Lorazepam Inj (Ativan Inj) (11/05/16 14:45) Lorazepam Inj (Ativan Inj) (11/05/16 14:45) Lorazepam Inj (Ativan Inj) (11/05/16 14:45) Urine Culture (11/05/16 14:15) Sulfamet-Trimeth Ds 800-160 Mg (Bactrim (11/05/16 16:00) Labs Laboratory Tests Test 11/05/16 11/05/16 11/05/16 12:45 14:15 14:30 White Blood Count 9.9 TH/MM3 Red Blood Count 4.43 MIL/MM3 Hemoglobin 11.5 GM/DL Hematocrit 36.3 % Mean Corpuscular Volume 82.0 FL Mean Corpuscular Hemoglobin 26.1 PG Mean Corpuscular Hemoglobin 31.8 % Concent Red Cell Distribution Width 16.4 % Platelet Count 472 TH/MM3 Mean Platelet Volume 6.3 FL Neutrophils (%) (Auto) 64.4 % Lymphocytes (%) (Auto) 26.6 % Monocytes (%) (Auto) 7.6 % Eosinophils (%) (Auto) 1.1 % Basophils (%) (Auto) 0.3 % Neutrophils # (Auto) 6.4 TH/MM3 Lymphocytes # (Auto) 2.6 TH/MM3 Monocytes # (Auto) 0.8 TH/MM3 Eosinophils # (Auto) 0.1 TH/MM3 Basophils # (Auto) 0.0 TH/MM3 CBC Comment DIFF FINAL Differential Comment Sodium Level 143 MEQ/L Potassium Level 3.1 MEQ/L Chloride Level 109 MEQ/L Carbon Dioxide Level 21.1 MEQ/L Anion Gap 13 MEQ/L Blood Urea Nitrogen 6 MG/DL Creatinine 0.53 MG/DL Estimat Glomerular Filtration 122 ML/MIN Rate Random Glucose 100 MG/DL Calcium Level 8.5 MG/DL Total Bilirubin 0.2 MG/DL Aspartate Amino Transf 19 U/L (AST/SGOT) Alanine Aminotransferase 19 U/L (ALT/SGPT) Alkaline Phosphatase 116 U/L Total Protein 7.1 GM/DL Albumin 3.4 GM/DL Ethyl Alcohol Level 378 MG/DL Urine Color YELLOW Urine Turbidity HAZY Urine pH 5.5 Urine Specific [place] 1.012 Urine Protein TRACE mg/dL Urine Glucose (UA) NEG mg/dL Urine Ketones NEG mg/dL Urine Occult Blood NEG Urine Nitrite NEG Urine Bilirubin NEG Urine Urobilinogen LESS THAN 2.0 MG/DL Urine Leukocyte Esterase SMALL Urine RBC 1 /hpf Urine WBC 4 /hpf Urine Squamous Epithelial 1 /hpf Cells Urine Bacteria MANY /hpf Urine Hyaline Casts 3 /lpf Urine Mucus FEW /lpf Microscopic Urinalysis Comment CATH-CULTURE IND Urine Opiates Screen NEG Urine Barbiturates Screen NEG Urine Amphetamines Screen NEG Urine Benzodiazepines Screen NEG Urine Cocaine Screen NEG Urine Cannabinoids Screen NEG MDM Medical Decision Making Medical Screen Exam Complete: Yes Emergency Medical Condition: Yes Differential Diagnosis Alcohol intoxication versus metabolic derangement versus closed head injury Narrative Course 51-year-old female who presents here after ingesting reported hand filler shaker. The patient also had the nail extract in her purse. She has a alcohol level 378. Patient's also noted to be mildly hypokalemic. She's been given 20 mg potassium chloride times one dose. She's also been given multivitamin, thiamine and folate. Urinalysis shows leukocyte esterase and a few bacteria. This was a catheter specimen. She'll be treated with Bactrim DS. She's been given one tablet here in the emergency Department and she'll have a prescription or further 5 days. She made a statement that she wanted to kill herself. She is placed on a Louis act and that this physician. This likely may be secondary to her intoxication however she did make a statement. She'll be medically cleared for psychiatric evaluation. Diagnosis Primary Impression: Acute alcohol intoxication Additional Impressions: mild hypokalemia Cystitis Suicidal ideation medically clear medically clear Med/Other Pt SpecificInfo: Prescription(s) given Scripts Sulfamethoxazole-Trimethoprim (Bactrim DS)800-160 Mg Tab1 Tab PO BID #14 TAB Ref 0 Prov:Shoaib Davis MD 11/05/16 Shoaib Davis MD November 05, 2016 13:03
[2016-11-05 13:18] LABS: ALT (GPT) 19 U/L (10-53); ANION GAP 13 MEQ/L (5-15); AST (GOT) 19 U/L (15-37); BICARBONATE 21.1 MEQ/L (21.0-32.0); BLOOD UREA NITROGEN 6 MG/DL (7-18); CHLORIDE 109 MEQ/L (98-107); GLOMERULAR FILTRATION RATE 122 ML/MIN (>89); POTASSIUM 3.1 MEQ/L (3.5-5.1); SODIUM (NA) 143 MEQ/L (136-145)
[2016-11-05 13:23] LABS: ALKALINE PHOSPHATASE 116 U/L (45-117); TOTAL BILIRUBIN ADULT 0.2 MG/DL (0.2-1.0)
--- NOTE | 2016-11-05 13:48 | RADRPT ---
EXAM DATE/TIME: 11/05/2016 13:30 [facility] COMPARISON: CT BRAIN W/O CONTRAST, July 08, 2016, 19:35. INDICATIONS : Patient with altered mental status, found in parking lot intoxicated with hand business office assistant by head. RADIATION DOSE: 32.81 CTDIvol (mGy) MEDICAL HISTORY : Non-responsive. SURGICAL HISTORY : Non-responsive. ENCOUNTER: Initial ACUITY: 1 day PAIN SCALE: Non-responsive LOCATION: cranial TECHNIQUE: Multiple contiguous axial images were obtained of the head. Using automated exposure control and adj ustment of the mA and/or kV according to patient size, radiation dose was kept as low as reasonably a chievable to obtain optimal diagnostic quality images. FINDINGS: CEREBRUM: The ventricles are normal for age. No evidence of midline shift, mass lesion, hemorrhage or acute in farction. No extra-axial fluid collections are seen. POSTERIOR FOSSA: The cerebellum and brainstem are intact. The 4th ventricle is midline. The cerebellopontine angle i s unremarkable. EXTRACRANIAL: The visualized portion of the orbits is intact. SKULL: The calvaria is intact. No evidence of skull fracture. CONCLUSION: Normal examination. Minimal ethmoidal sinus fluid right greater left. Oswaldo Goodman MD on November 05, 2016 at 13:45 Board Certified Radiologist. This report was verified electronically.
[2016-11-05 14:16] VITALS: BP 145/87; PULSE 102; O2SAT 97
[2016-11-05] MEDS ORDERED: POTASSIUM CHLORIDE 20 MEQ PWD PACKET PO ONE (14:30)
[2016-11-05] MEDS ORDERED: THIAMINE HCL 100 MG TAB PO ONE (14:30)
[2016-11-05] MEDS ORDERED: FOLIC ACID 1 MG TAB PO ONE (14:30)
[2016-11-05] MEDS ORDERED: MULTIVITAMIN TAB PO ONE (14:30)
[2016-11-05] MEDS ORDERED: LORazepam 2 MG/ML VIAL IV PUSH PRN ×4 (14:45)
[2016-11-05] MEDS ORDERED: FLUMAZENIL 0.5 MG/5 ML VIAL IV PUSH PRN (14:45)
[2016-11-05] MEDS ORDERED: LORazepam 2 MG TAB PO PRN (14:45)
[2016-11-05 14:49] LABS: BACTERIA, URINE MANY /hpf; BLOOD, URINE NEG (NEG); GLUCOSE,URINE NEG (NEG); HYALINE CAST, URINE 3 /lpf (RARE); KETONE, URINE NEG (NEG); MUCUS URINE FEW /lpf (OCC); NITRITE,URINE NEG (NEG); PH, URINE 5.5 (5.0-8.5); SQUAMOUS EPITHELIAL CELL URINE 1 /hpf (0-5); URINE COLOR YELLOW (YELLW/STRAW)
[2016-11-05 14:51] LABS: COMMENT (UR) CATH-CULTURE IND; CULTURE IF INDICATED CATH CULTURE IND
[2016-11-05 15:28] LABS: AMPHETAMINE, URINE NEG (NEG); BARBITURATES, URINE NEG (NEG); COCAINE, URINE NEG (NEG)
[2016-11-05] MEDS ORDERED: BACT800T5 PO (16:00)
[2016-11-05] MEDS ORDERED: SULFAMETHOXAZOLE-TRIMETHOPRIM DS 800-160 MG TAB PO ONE (16:00)
[2016-11-06 07:13] VITALS: BP 127/65; PULSE 79; RESP 18; O2SAT 98
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
[2016-11-06] MEDS ORDERED: MAGNESIUM HYDROXIDE SUSP 30 ML CUP PO PRN (10:30)
[2016-11-06 10:50] VITALS: BP 129/66; PULSE 85; RESP 16; TEMP 98.2; O2SAT 97
[2016-11-06] MEDS: ACETAMINOPHEN 325 MG TAB PO PRN ×3 (11:10→22:10)
[2016-11-06 18:04] VITALS: BP 135/85; PULSE 102; RESP 18; TEMP 98.9; O2SAT 97
[2016-11-06] MEDS: LORazepam 1 MG TAB PO PRN ×2 (18:18→22:10)
[2016-11-06] MEDS: ALUMINUM/MAGNESIUM/SIMETH 30 ML CUP PO PRN (18:18)
--- NOTE | 2016-11-06 21:57 | EKG ---
Date Performed: 11/05/2016 Time Performed: 12:40:43 PTAGE: 51 years EKG: SINUS TACHYCARDIA ABNORMAL RHYTHM ECG PREVIOUS TRACING : 07/09/2016 04.11 Compared to the previous tracing sinus tachycardia is new DOCTOR: Pedro Partida Interpretating Date/Time 11/06/2016 21:56:37
[2016-11-07 04:59] VITALS: BP 119/70; PULSE 86; RESP 16; TEMP 98.1; O2SAT 97
[2016-11-07] MEDS: LORazepam 1 MG TAB PO PRN ×4 (05:05→21:08)
[2016-11-07] MEDS: ALUMINUM/MAGNESIUM/SIMETH 30 ML CUP PO PRN ×2 (05:08→14:53)
[2016-11-07] MEDS: ACETAMINOPHEN 325 MG TAB PO PRN ×2 (05:09→08:59)
[2016-11-07 08:58] LABS: ANION GAP 10 MEQ/L (5-15); BICARBONATE 26.3 MEQ/L (21.0-32.0); BLOOD UREA NITROGEN 4 MG/DL (7-18); CHLORIDE 102 MEQ/L (98-107); GLOMERULAR FILTRATION RATE 151 ML/MIN (>89); HDL CHOLESTEROL 84.3 MG/DL (40.0-60.0); LDL CHOLESTEROL 80 MG/DL (0-99); POTASSIUM 3.3 MEQ/L (3.5-5.1); SODIUM (NA) 138 MEQ/L (136-145)
[2016-11-07] MEDS: QUEtiapine FUMARATE 25 MG TAB PO SCH ×2 (10:38→21:05)
[2016-11-07] MEDS: PANTOPRAZOLE SOD 20 MG DELAYED RELEASE TAB PO SCH (10:38)
[2016-11-07] MEDS: ESCITALOPRAM OXALATE 10 MG TAB PO SCH (10:38)
[2016-11-07] MEDS: IBUPROFEN 600 MG TAB PO SCH ×3 (10:39→21:05)
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
[2016-11-07 13:41] LABS: HEMOGLOBIN A1b 0.7 %; HEMOGLOBIN Ao 86.2 %; HEMOGLOBIN F 0.9 %; HEMOGLOBIN LA1C 2.1 %; HEMOGLOBIN P3 3.5 %
[2016-11-07 16:35] VITALS: BP 117/78; PULSE 101; RESP 18; TEMP 95.9; O2SAT 98
[2016-11-08] MEDS: LORazepam 1 MG TAB PO PRN ×3 (05:46→20:33)
[2016-11-08] MEDS: IBUPROFEN 600 MG TAB PO SCH ×3 (05:48→20:34)
[2016-11-08 05:56] VITALS: BP 114/73; PULSE 89; RESP 18; TEMP 98; O2SAT 95
[2016-11-08] MEDS: NICOTINE 14 MG/24 HR PATCH T-DERMAL SCH (09:00)
[2016-11-08] MEDS: ESCITALOPRAM OXALATE 10 MG TAB PO SCH (09:20)
[2016-11-08] MEDS: PANTOPRAZOLE SOD 20 MG DELAYED RELEASE TAB PO SCH (09:20)
[2016-11-08] MEDS: QUEtiapine FUMARATE 25 MG TAB PO SCH ×2 (09:21→20:34)
--- NOTE | 2016-11-08 13:22 | HHI.PYPN ---
Subjective Remarks Is a request for second opinion. Patient was seen and case discussed with nursing and admission note reviewed. Vital signs are stable. There are no tremors or hallucinations or confusion. No nausea or vomiting. Patient awoken from sleep for the interview. She remains depressed and hopeless. When asked about suicidal ideation she says "I don't know." However she denied a plan or any intent of hurting herself on this unit. He is eating and sleeping well per nursing. Engaging with the team Objective Alert: Yes [place]: Person (ox4), Place, Date Mood: Depressed Affect: Blunted Memory Intact: Comment (not formally tetsted) Hallucinations: Other (negative) Delusions: No Delusion Type: Other Suicidal: Plan (no plan), Ideation ("I don't know.") Homicidal: Ideation (neagtive) Insight/Judgment Poor Labs Date/Time Procedure Status Source Growth 11/05/16 14:15 Urine Culture - Final Complete Urine Catheterized Urine Escherichia Coli Esbl Positive Vitals/IOs Vital Signs Date Time Temp Pulse Resp B/P Pulse Ox O2 Delivery O2 Flow Rate FiO2 11/08/16 05:56 98.0 89 18 114/73 95 11/06/16 07:15 Room Air Assessment & Plan Problem List: (1) Depression ICD Code: F32.9 Assessment & Plan Continue current treatment plan Justification for Cont. Inpt. Patient will decompensate in a less restrictive setting Problem Qualifiers (1) Depression: Qualified Code: F33.1 - Moderate episode of recurrent major depressive disorder Cody Samayoa DO November 08, 2016 13:22
[2016-11-08] MEDS: ALUMINUM/MAGNESIUM/SIMETH 30 ML CUP PO PRN (13:32)
[2016-11-08 20:42] VITALS: BP 127/74; PULSE 68; RESP 18; TEMP 98.1; O2SAT 99
[2016-11-09 05:57] VITALS: BP 107/67; PULSE 80; RESP 18; TEMP 97.2; O2SAT 99
[2016-11-09] MEDS: LORazepam 1 MG TAB PO PRN ×3 (06:21→21:01)
[2016-11-09] MEDS: IBUPROFEN 600 MG TAB PO SCH ×3 (06:21→21:01)
[2016-11-09] MEDS: PANTOPRAZOLE SOD 20 MG DELAYED RELEASE TAB PO SCH (08:38)
[2016-11-09] MEDS: NICOTINE 14 MG/24 HR PATCH T-DERMAL SCH (08:38)
[2016-11-09] MEDS: QUEtiapine FUMARATE 25 MG TAB PO SCH ×3 (08:38→21:00)
[2016-11-09] MEDS: ESCITALOPRAM OXALATE 10 MG TAB PO SCH (08:38)
--- NOTE | 2016-11-09 08:58 | HHI.PYPN ---
Subjective Remarks Patient seen today for psychiatric reevaluation, she is in the day room eating her breakfast, she seems to be objectively depressed, hypoactivity, melancholy, visibly sad, internally preoccupied. She reports depressive symptoms, having a difficult time coping with the hospitalization, thinking about suicidality. She is oriented 3, no attention deficit. She has been isolated and withdrawn in the unit. But, compliant with medications. Review of Systems Other She doesn't have any somatic complaints Objective Alert: Yes [place]: Person (ox4), Place, Date Mood: Depressed Affect: Blunted Memory Intact: Comment (not formally tetsted) Hallucinations: Other (negative) Delusions: No Delusion Type: Other Suicidal: Plan (no plan), Ideation (suicidal thoughts, no specific plan) Homicidal: Ideation (neagtive) Insight/Judgment Poor Labs Date/Time Procedure Status Source Growth 11/05/16 14:15 Urine Culture - Final Complete Urine Catheterized Urine Escherichia Coli Esbl Positive Vitals/IOs Vital Signs Date Time Temp Pulse Resp B/P Pulse Ox O2 Delivery O2 Flow Rate FiO2 11/09/16 05:57 97.2 80 18 107/67 99 11/06/16 07:15 Room Air Assessment & Plan Problem List: (1) Depression Assessment & Plan: Patient continues to be subjectively and objectively depressed, internally occupied, she has suicidal thoughts, no specific plan. Case discussed with nurse in charge and psychiatric team. Will increase Seroquel to 50 mg twice a day. ICD Code: F32.9 Assessment & Plan Estimated LOS: days Justification for Cont. Inpt. Patient has an increased risk to harm herself out of the inpatient unit. Problem Qualifiers (1) Depression: Qualified Code: F33.1 - Moderate episode of recurrent major depressive disorder Nasir Newell MD November 09, 2016 08:58
[2016-11-09 21:56] VITALS: BP 123/58; PULSE 77; RESP 18; TEMP 98; O2SAT 98
[2016-11-10] MEDS: LORazepam 1 MG TAB PO PRN ×2 (05:12→18:15)
[2016-11-10] MEDS: IBUPROFEN 600 MG TAB PO SCH ×3 (05:12→22:00)
[2016-11-10] MEDS: ALUMINUM/MAGNESIUM/SIMETH 30 ML CUP PO PRN (05:12)
[2016-11-10 05:41] VITALS: BP 101/56; PULSE 80; RESP 18; TEMP 98.1; O2SAT 99
[2016-11-10] MEDS: PANTOPRAZOLE SOD 20 MG DELAYED RELEASE TAB PO SCH (09:18)
[2016-11-10] MEDS: ESCITALOPRAM OXALATE 10 MG TAB PO SCH (09:19)
[2016-11-10] MEDS: QUEtiapine FUMARATE 25 MG TAB PO SCH (09:19)
[2016-11-10] MEDS: NICOTINE 14 MG/24 HR PATCH T-DERMAL SCH (09:19)
[2016-11-10] MEDS: ACETAMINOPHEN 325 MG TAB PO PRN (09:39)
--- NOTE | 2016-11-10 12:22 | PD.CONS ---
HPI Service [facility] Consult Requested By Psychiatry Reason for Consult Medical management Primary Care Physician No Primary Care Physician Diagnoses: History of Present Illness 51 year-old female with a history of depression/anxiety and alcohol abuse as well as multiple admissions secondary to suicidal ideation was brought to the ED and subsequently admitted to inpatient psychiatry secondary to suicidal ideations. Patient states, she has been depressed and has had thoughts of killing herself however denies any homicidal ideation. 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 In ED, she was found to have abnormal UA but denies any dysuria. [facility] consulted for medical management. Patient was up and ambulated. she denies any chest pain or shortness of breath. Review of Systems Except as stated in HPI: all other systems reviewed are Neg Past Family Social History Allergies: Coded Allergies: *MDRO Multi-Drug Resistant Organism (Verified Adverse Reaction, Unknown, ) ESBL+E.Coli (urine)-07/08/16 & 11/05/16 Past Medical History Depression Anxiety Alcohol dependence Multiple admissions secondary to suicidal ideations Past Surgical History Reported Medications Lexapro Family History dad Had heart disease Brother with hypertension Social History Drinks 2-4 4 beers a day, smokes 1ppd and denies any illicit drug intake. Unemployed Physical Exam Vital Signs Vital Signs Date Time Temp Pulse Resp B/P Pulse Ox O2 Delivery O2 Flow Rate FiO2 11/10/16 05:41 98.1 80 18 101/56 99 11/09/16 21:56 98.0 77 18 123/58 98 Physical Exam GENERAL: This is a well-nourished, well-developed patient, in no apparent distress. SKIN: No rashes, ecchymoses or lesions. Cool and dry. HEAD: Atraumatic. Normocephalic. No temporal or scalp tenderness. EYES: Pupils equal round and reactive. Extraocular motions intact. No scleral icterus. No injection or drainage. ENT: Nose without bleeding, purulent drainage or septal hematoma. Throat without erythema, tonsillar hypertrophy or exudate. Uvula midline. Airway patent. NECK: Trachea midline. No JVD or lymphadenopathy. Supple, nontender, no meningeal signs. CARDIOVASCULAR: Regular rate and rhythm without murmurs, gallops, or rubs. RESPIRATORY: Clear to auscultation. Breath sounds equal bilaterally. No wheezes , rales, or rhonchi. GASTROINTESTINAL: Abdomen soft, non-tender, nondistended. No hepato-splenomegaly , or palpable masses. No guarding. MUSCULOSKELETAL: Extremities without clubbing, cyanosis, or edema. Right upper extremity in sling NEUROLOGICAL: Awake and alert. Cranial nerves II through XII intact. Motor and sensory grossly within normal limits. Five out of 5 muscle strength in all muscle groups. Normal speech. Laboratory Date/Time Procedure Status Source Growth 11/05/16 14:15 Urine Culture - Final Complete Urine Catheterized Urine Escherichia Coli Esbl Positive Result Diagram: 11/05/16 1245 11/07/16 0747 Imaging Last Impressions Head CT 11/05/16 1227 Signed Impressions: Service Date/Time: October 13:30 - CONCLUSION: Normal examination. Minimal ethmoidal sinus fluid right greater left. Oswaldo Goodman MD Chest X-Ray 11/05/16 1227 Signed Impressions: Service Date/Time: October 12:25 - CONCLUSION: 1. No acute cardiopulmonary disease. Khalif Hall MD Assessment and Plan Assessment and Plan 51-year-old female with Suicidal ideation Depression Management per psychiatry Continue with Lexapro History of alcohol abuse Alcohol cessation counseling provided Continue with CIWA protocol, rally pack Abnormal UA Start Cipro 5 mg by mouth twice a day 3 days Hypokalemia Replace electrolytes Tobacco abuse Tobacco cessation counseling provided Nicotine patch DVT prophylaxis: Encourage ambulation Thank you for this consultation [facility] will sign off and reconsult when necessary Code Status Full code Discussed Condition With Patient Stanislaw Morales MD November 10, 2016 12:22
[2016-11-10] MEDS ORDERED: POTASSIUM CHLORIDE 10 MEQ CONTROLLED RELEASE TAB PO ONE (12:30)
[2016-11-10] MEDS: CIPROFLOXACIN 500 MG TAB PO SCH ×2 (13:32→21:00)
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
[2016-11-10 18:02] VITALS: BP 106/71; PULSE 92; RESP 17; TEMP 98.2; O2SAT 100
[2016-11-10] MEDS ORDERED: QUEtiapine FUMARATE 100 MG TAB PO SCH (21:00)
[2016-11-11 05:08] VITALS: BP 102/58; PULSE 72; RESP 18; TEMP 98.1; O2SAT 97
[2016-11-11] MEDS: IBUPROFEN 600 MG TAB PO SCH ×2 (06:00→14:00)
[2016-11-11] MEDS: LORazepam 1 MG TAB PO PRN (06:47)
[2016-11-11] MEDS: CIPROFLOXACIN 500 MG TAB PO SCH (09:28)
[2016-11-11] MEDS: PANTOPRAZOLE SOD 20 MG DELAYED RELEASE TAB PO SCH (09:28)
[2016-11-11] MEDS: ESCITALOPRAM OXALATE 10 MG TAB PO SCH (09:28)
[2016-11-11] MEDS: NICOTINE 14 MG/24 HR PATCH T-DERMAL SCH (09:29)
[2016-11-11] MEDS ORDERED: CIPR-9 PO (12:48)
[2016-11-11] MEDS ORDERED: QUET1TAB8 PO (12:48)
[2016-11-11] MEDS ORDERED: ESCI10TA PO (12:48)
[2016-11-11] MEDS ORDERED: PANT20 PO (12:48)
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
== END 2016-11-11 15:40 | disposition home or self-care (01) | DRG 885 ==
LOC: NEPE 12:19 → MERGE 11-06 10:26 → NEDA 11-06 10:26 → H260 11-06 10:39
PROVIDERS: ADMIT Psychiatry & Neurology Psychiatry; ATTEND Psychiatry & Neurology Psychiatry
DX: F33.2 Major depressive disorder, recurrent severe without psychotic features (principal); R45.851 Suicidal ideations; E87.6 Hypokalemia; F41.9 Anxiety disorder, unspecified; F10.229 Alcohol dependence with intoxication, unspecified; Y90.8 Blood alcohol level of 240 mg/100 ml or more; F17.210 Nicotine dependence, cigarettes, uncomplicated; Z91.14 Patient's other noncompliance with medication regimen
CPT/HCPCS: 70450; 71010; 80048; 80053; 80061; 80307; 81001; 83036; 85025; 87077; 87086; 87186; 93005; 96360; J7030

== ENCOUNTER 2017-01-06 09:09 | Inpatient (IN) | payer SELFPAY ==
[~2017-01-06] VITALS: Ht 165.1 cm; Wt 56.0 kg
[2017-01-06] VITALS (17 sets, daily range): BP systolic 96–148; BP diastolic 58–87; PULSE 80–99; RESP 14–16; TEMP 97.9–99.1; O2SAT 99–100
[~2017-01-06 09:09] MED LIST changes: +BACT800T5 PO; +CIPR-9 PO; -FOLI1TAB4 PO; -LEXA10TA PO; -PERC5TAB12 PO; +QUET1TAB8 PO; -SERO50TA PO; -VITA100T2 PO
[2017-01-06] MEDS ORDERED: PROPOFOL 1000 MG/100 ML INJ 100 ML ONE (09:13)
[2017-01-06] MEDS ORDERED: SODIUM CHLORIDE 0.9% FLUSH 5 ML FLUSH IV FLUSH PRN (09:15)
[2017-01-06] MEDS ORDERED: PROPOFOL 1000 MG/100 ML INJ 100 ML IV SCH (09:15)
[2017-01-06] MEDS ORDERED: fentaNYL DRIP 250 ML IV SCH ×2 (09:15→11:30)
[2017-01-06] MEDS ORDERED: SODIUM CHLOR 0.9% 1000 ML INJ 1,000 ML IV ONE ×2 (09:30→10:45)
[2017-01-06 09:31] LABS: AUTOMATED NEUTROPHIL # 7.5 TH/MM3 (1.8-7.7); BASOPHIL # 0.1 TH/MM3 (0-0.2); BASOPHIL % 0.5 % (0.0-2.0); EOSINOPHIL # 0.1 TH/MM3 (0-0.4); EOSINOPHIL % 0.5 % (0.0-4.0); HEMATOCRIT 37.7 % (35.0-46.0); HEMO FLAGS DIFF FINAL; LYMPH % 34.6 % (9.0-44.0); LYMPHOCYTE # 4.3 TH/MM3 (1.0-4.8); MEAN CELL VOLUME 82.5 FL (80.0-100.0); MEAN CORPUSCULAR HEMOGLOBIN 26.8 PG (27.0-34.0); MEAN CORPUSCULAR HGB CONC 32.5 % (32.0-36.0); MONO % 3.5 % (0.0-8.0); NEUT % 60.9 % (16.0-70.0); PLATELET COUNT 593 TH/MM3 (150-450); RED BLOOD COUNT 4.57 MIL/MM3 (4.00-5.30); RED CELL DISTRIBUTION WIDTH 20.2 % (11.6-17.2); WHITE BLOOD COUNT 12.4 TH/MM3 (4.0-11.0)
[2017-01-06 09:32] LABS: BACTERIA, URINE FEW /hpf; BLOOD, URINE NEG (NEG); GLUCOSE,URINE NEG (NEG); KETONE, URINE NEG (NEG); NITRITE,URINE NEG (NEG); URINE COLOR LIGHT-YELLOW (YELLW/STRAW)
[2017-01-06 09:33] LABS: COMMENT (UR) CATH-CULTURE IND; CULTURE IF INDICATED CATH CULTURE IND
[2017-01-06 09:39] LABS: AMPHETAMINE, URINE NEG (NEG); APTT (PATIENT) 23.5 SEC (24.3-30.1); BARBITURATES, URINE NEG (NEG); COCAINE, URINE NEG (NEG); PROTHROMBIN TIME - PATIENT 11.2 SEC (9.8-11.6)
--- NOTE | 2017-01-06 09:46 | RADRPT ---
EXAM DATE/TIME: 01/06/2017 09:18 [facility] COMPARISON: No previous studies available for comparison. INDICATIONS : Post intubation. ET and OG tubes placed. MEDICAL HISTORY : Cardiovascular disease. Diabetes mellitus type I. Seizures. SURGICAL HISTORY : None. ENCOUNTER: Initial ACUITY: 1 day PAIN SCORE: Non-responsive. LOCATION: Bilateral chest FINDINGS: A single view of the chest demonstrates the patient has an endotracheal tube in good position. There is an NG tube coiling in the stomach. The lungs are grossly clear. There is no pneumothorax. Ther e is no infiltrate or mass. CONCLUSION: ET tube in good position. There is a right humeral neck fracture healing since October but still abundan t lucency along the fracture line, probably un-united. Oswaldo Goodman MD on January 06, 2017 at 9:35 Board Certified Radiologist. This report was verified electronically.
[2017-01-06 10:01] LABS: ANION GAP 16 MEQ/L (5-15)
[2017-01-06 10:07] LABS: AST (GOT) 23 U/L (15-37); BICARBONATE 19.9 MEQ/L (21.0-32.0); BLOOD UREA NITROGEN 5 MG/DL (7-18); CHLORIDE 104 MEQ/L (98-107); GLOMERULAR FILTRATION RATE 110 ML/MIN (>89); POTASSIUM 3.7 MEQ/L (3.5-5.1); SODIUM (NA) 140 MEQ/L (136-145)
[2017-01-06 10:11] LABS: ALKALINE PHOSPHATASE 103 U/L (45-117); ALT (GPT) 20 U/L (10-53); CREATINE KINASE 527 U/L (26-192); TOTAL BILIRUBIN ADULT 0.2 MG/DL (0.2-1.0)
[2017-01-06 10:24] LABS: CKMB 6.7 NG/ML (0.5-3.6)
[2017-01-06 10:29] LABS: ACETAMINOPHEN LESS THAN 2.0 MCG/ML (10.0-30.0)
--- NOTE | 2017-01-06 10:36 | PD ---
HPI Chief Complaint: OD/ Ingestion Time Seen by Provider: 09:14 Travel History International Travel<30 days: No Contact w/Intl Traveler<30days: No Traveled to known affect area: No History of Present Illness HPI 51-year-old female was found unresponsive this morning in the back of a local store. Several bottles of hand electrical checkout mechanic was found around the patient. EMS reported possible around 20 ounces. Patient with a GCS of 6. Patient responded to deep pain and gastric reflex. Patient was intubated for airway protection. Patient was given 2 mg Ativan and 20 mg etomidate for the intubation procedure. Patient was brought in the ED for evaluation. PFSH Past Medical History Hx Anticoagulant Therapy: No Asthma: No Blood Disorders: No Anxiety: Yes Depression: Yes Heart Rhythm Problems: No Cancer: No Cardiovascular Problems: No High Cholesterol: No Chemotherapy: No Chest Pain: No Congestive Heart Failure: No COPD: No Cerebrovascular Accident: No Diabetes: No (per pt) Diminished Hearing: No Endocrine: No Gastrointestinal Disorders: Yes GERD: Yes Genitourinary: No Headaches: No (per pt) Immune Disorder: No Musculoskeletal: Yes (R SHOULDER FX) Neurologic: No Psychiatric: Yes Reproductive: No Respiratory: No Radiation Therapy: No Seizures: No (per pt) Sleep Apnea: No Thyroid Disease: No Ulcer: Yes Menopausal: Yes : 2 Para: 2 Miscarriage: 0 : 0 Past Surgical History Abdominal Surgery: No Cardiac Surgery: No Section: Yes (X 1) Ear Surgery: No Endocrine Surgery: No Eye Surgery: No Genitourinary Surgery: No Gynecologic Surgery: Yes (C SECTION 2004) Hysterectomy: No Oral Surgery: Yes Thoracic Surgery: No Other Surgery: No Social History Alcohol Use: Yes Tobacco Use: Yes Substance Use: No Allergies-Medications (Allergen,Severity, Reaction): Coded Allergies: *MDRO Multi-Drug Resistant Organism (Verified Adverse Reaction, Unknown, ) ESBL+E.Coli (urine-02/16/16 & 10/14/16) Reported Meds & Prescriptions Reported Meds & Active Scripts Active No Active Prescriptions or Reported Medications Protonix (Pantoprazole Sodium) 20 Mg Tab 20 Mg PO DAILY Quetiapine (Quetiapine Fumarate) 100 Mg Tab 100 Mg PO HS 30 Days Escitalopram (Escitalopram Oxalate) 10 Mg Tab 20 Mg PO DAILY Cipro (Ciprofloxacin HCl) 500 Mg Tab 500 Mg PO Q12HR Bactrim DS (Sulfamethoxazole-Trimethoprim) 800-160 Mg Tab 1 Tab PO BID Review of Systems ROS Limitations: Altered Mental Status, Unresponsive Physical Exam Narrative GENERAL: Well-nourished, well-developed patient. SKIN: Focused skin assessment warm/dry. HEAD: Normocephalic. EYES: No scleral icterus. No injection or drainage. Pupils 3 mm equal reactive. NECK: Supple, trachea midline. No JVD or lymphadenopathy. CARDIOVASCULAR: Regular rate and rhythm without murmurs, gallops, or rubs. RESPIRATORY: Breath sounds equal bilaterally. Patient's intubated. GASTROINTESTINAL: Abdomen soft, nondistended. MUSCULOSKELETAL: No cyanosis, or edema. BACK: No obvious deformity. Neurologic exam: Patient's intubated. Unresponsive. Data Data Last Documented VS Vital Signs Date Time Temp Pulse Resp B/P Pulse Ox O2 Delivery O2 Flow Rate FiO2 01/06/17 10:14 89 14 131/79 100 Ventilator 60 01/06/17 09:14 99.1 Orders Propofol 1000 Mg/100 Ml Inj (Diprivan 10 (01/06/17 09:13) Electrocardiogram (01/06/17 09:12) Ammonia (01/06/17 09:12) Complete Blood Count With Diff (01/06/17 09:12) Comprehensive Metabolic Panel (01/06/17 09:12) Creatine Kinase (Cpk) (01/06/17 09:12) Prothrombin Time / Inr (Pt) (01/06/17 09:12) Act Partial Throm Time (Ptt) (01/06/17 09:12) Troponin I (01/06/17 09:12) Thyroid Stimulating Hormone (01/06/17 09:12) Urinalysis - C+S If Indicated (01/06/17 09:12) Lactic Acid Sepsis Protocol (01/06/17 09:12) Blood Culture (01/06/17 09:12) Chest, Single Ap (01/06/17 09:12) Blood Glucose (01/06/17 09:12) Ecg Monitoring (01/06/17 09:12) Iv Access Insert/Monitor (01/06/17 09:12) Oximetry (01/06/17 09:12) Sodium Chloride 0.9% Flush (Ns Flush) (01/06/17 09:15) Drug Screen, Random Urine (01/06/17 09:12) Alcohol (Ethanol) (01/06/17 09:12) Tylenol (Acetaminophen) (01/06/17 09:12) Salicylates (Aspirin) (01/06/17 09:12) Neurological Rass Scale Q30MX2,Q2HX4,Q4H (01/06/17 09:14) Fentanyl Drip (Fentanyl Drip) (01/06/17 09:15) Propofol 1000 Mg/100 Ml Inj (Diprivan 10 (01/06/17 09:15) ^ Infusion (01/06/17 09:14) RASS (01/06/17 09:14) Neurological Rass Scale MAXIMO.Q2H (01/06/17 09:14) Urinary Catheter Insert/Apply (01/06/17 09:15) Glen-Gastric Tube Insert/Mon (01/06/17 09:15) Sodium Chlor 0.9% 1000 Ml Inj (Ns 1000 M (01/06/17 09:30) Ct Brain W/O Iv Contrast(Rout) (01/06/17 09:24) Urine Culture (01/06/17 09:00) Osmolality,Serum (01/06/17 10:10) Osmolality, Urine (01/06/17 10:10) CKMB (01/06/17 09:10) CKMB% (01/06/17 09:10) Restraints Non-Violent MAXIMO.Q3H (01/06/17 10:15) Sodium Chlor 0.9% 1000 Ml Inj (Ns 1000 M (01/06/17 10:45) Vancomycin Inj (Vancomycin Inj) (01/06/17 10:45) Piperacil-Tazo 3.375 Gm Premix (Zosyn 3. (01/06/17 10:45) Arterial Blood Gas (Abg) (01/06/17 ) Magnesium (Mg) (01/06/17 10:43) Phosphorus (Po4) (01/06/17 10:43) Beta Hydroxybutyrate (Acetone) (01/06/17 10:46) Labs Laboratory Tests Test 01/06/17 01/06/17 01/06/17 09:00 09:10 10:42 Urine Color LIGHT-YELLOW Urine Turbidity CLEAR Urine pH 6.0 Urine Specific [place] 1.005 Urine Protein NEG mg/dL Urine Glucose (UA) NEG mg/dL Urine Ketones NEG mg/dL Urine Occult Blood NEG Urine Nitrite NEG Urine Bilirubin NEG Urine Urobilinogen LESS THAN 2.0 MG/DL Urine Leukocyte Esterase NEG Urine RBC LESS THAN 1 /hpf Urine WBC 2 /hpf Urine Bacteria FEW /hpf Microscopic Urinalysis Comment CATH-CULTURE IND White Blood Count 12.4 TH/MM3 Red Blood Count 4.57 MIL/MM3 Hemoglobin 12.2 GM/DL Hematocrit 37.7 % Mean Corpuscular Volume 82.5 FL Mean Corpuscular Hemoglobin 26.8 PG Mean Corpuscular Hemoglobin 32.5 % Concent Red Cell Distribution Width 20.2 % Platelet Count 593 TH/MM3 Mean Platelet Volume 6.1 FL Neutrophils (%) (Auto) 60.9 % Lymphocytes (%) (Auto) 34.6 % Monocytes (%) (Auto) 3.5 % Eosinophils (%) (Auto) 0.5 % Basophils (%) (Auto) 0.5 % Neutrophils # (Auto) 7.5 TH/MM3 Lymphocytes # (Auto) 4.3 TH/MM3 Monocytes # (Auto) 0.4 TH/MM3 Eosinophils # (Auto) 0.1 TH/MM3 Basophils # (Auto) 0.1 TH/MM3 CBC Comment DIFF FINAL Differential Comment Prothrombin Time 11.2 SEC Prothromb Time International 1.0 RATIO Ratio Activated Partial 23.5 SEC Thromboplast Time Sodium Level 140 MEQ/L Potassium Level 3.7 MEQ/L Chloride Level 104 MEQ/L Carbon Dioxide Level 19.9 MEQ/L Anion Gap 16 MEQ/L Blood Urea Nitrogen 5 MG/DL Creatinine 0.58 MG/DL Estimat Glomerular Filtration 110 ML/MIN Rate Random Glucose 111 MG/DL Lactic Acid Level 4.1 mmol/L Calcium Level 8.5 MG/DL Total Bilirubin 0.2 MG/DL Aspartate Amino Transf 23 U/L (AST/SGOT) Alanine Aminotransferase 20 U/L (ALT/SGPT) Alkaline Phosphatase 103 U/L Ammonia 30 MCMOL/L Total Creatine Kinase 527 U/L Creatine Kinase MB 6.7 NG/ML Creatine Kinase MB % 1.3 % Troponin I LESS THAN 0.02 NG/ML Total Protein 7.9 GM/DL Albumin 3.7 GM/DL Thyroid Stimulating Hormone 0.690 uIU/ML 3rd Gen Salicylates Level 5.7 MG/DL Urine Opiates Screen NEG Acetaminophen Level LESS THAN 2.0 MCG/ML Urine Barbiturates Screen NEG Urine Amphetamines Screen NEG Urine Benzodiazepines Screen NEG Urine Cocaine Screen NEG Urine Cannabinoids Screen NEG Ethyl Alcohol Level 391 MG/DL Blood Gas Puncture Site RT RADIAL Blood Gas Patient Temperature 98.6 Blood Gas HCO3 19 mmol/L Blood Gas Base Excess -5.9 mmol/L Blood Gas Oxygen Saturation 95 % Arterial Blood pH 7.33 Arterial Blood Partial 37 mmHg Pressure CO2 Arterial Blood Partial 295 mmHG Pressure O2 Arterial Blood Oxygen Content 15.7 Vol % Arterial Blood 3.6 % Carboxyhemoglobin Arterial Blood Methemoglobin 0.7 % Blood Gas Hemoglobin 11.2 G/DL Oxygen Delivery Device VENTILATOR Blood Gas Ventilator Setting 450/14/PEEP5 Blood Gas Inspired Oxygen 60 % MDM Medical Decision Making Medical Screen Exam Complete: Yes Emergency Medical Condition: Yes Interpretation(s) Last Impressions Head CT 01/06/17923 Signed Impressions: Service Date/Time: Friday, January 06, 2017 10:32 - CONCLUSION: Normal examination. Oswaldo Goodman MD Chest X-Ray 01/06/17911 Signed Impressions: Service Date/Time: Friday, January 06, 2017 09:18 - CONCLUSION: ET tube in good position. There is a right humeral neck fracture healing since October but still abundant lucency along the fracture line, probably un-united. Oswaldo Goodman MD 11:01 AM. CBC WBC 12.4 . Platelet 593. Normal differential. Bicarbonate 19.9. Lactic acid 4.1. Anion gap 16. Total CK 527. Normal MB fraction. Troponin normal. Urine drug screen negative. Acetaminophen and salicylate negative. Alcohol 391. ABG pH 7.33. PCO2 37. PO2 to 95. Patient on 60% O2. Differential Diagnosis Differential diagnosis including substance-induced mood disorder, TIA, CVA, sepsis, electrolyte imbalance, overdose. Narrative Course 51-year-old female found unresponsive in the back of the local store. Several bottles of hand electrical checkout mechanic was found around the patient. Patient was intubated at the scene EMS. Normal saline solution 2 L IV bolus. Vancomycin 1 g IV. Zosyn 3.375 g IV given. Propofol drip and fentanyl drip as needed for sedation. Diagnosis Primary Impression: Acute respiratory failure Qualified Code: J96.00 - Acute respiratory failure, unspecified whether with hypoxia or hypercapnia Additional Impressions: Acute alcohol intoxication Qualified Code: F10.921 - Acute alcohol intoxication, with delirium Metabolic acidosis Admitting Information Admitting Physician Requests: Admit Evin Rene MD Jan 06, 2017 10:36
--- NOTE | 2017-01-06 10:40 | EKG ---
Date Performed: 01/06/2017 Time Performed: 09:32:29 PTAGE: 51 years EKG: SINUS TACHYCARDIA ABNORMAL RHYTHM ECG PREVIOUS TRACING : 11/05/2016 12.40 DOCTOR: Oswaldo Alvarado Interpretating Date/Time 01/06/2017 10:39:30
[2017-01-06] MEDS ORDERED: PIPERACIL-TAZO 3.375 GM PREMIX 50 ML IV ONE (10:45)
[2017-01-06] MEDS ORDERED: VANCOMYCIN INJ 1,000 MG in SODIUM CHLOR 0.9% 250 ML INJ 250 ML IV ONE (10:45)
[2017-01-06 10:52] LABS: BLOOD GAS BASE EXCESS -5.9 mmol/L (-2-2); BLOOD GAS CARBOXYHEMOGLOBIN 3.6 % (0-4); BLOOD GAS HCO3 19 mmol/L (22-26); BLOOD GAS METHEMOGLOBIN 0.7 % (0-2); BLOOD GAS O2 HGB SATURATION 95 % (90-100); BLOOD GAS OXYGEN CONTENT 15.7 Vol % (12.0-20.0); BLOOD GAS PCO2 37 mmHg (38-42); BLOOD GAS PO2 295 mmHG (61-120); BLOOD GAS TOTAL HGB 11.2 G/DL (12.0-16.0); CRITICAL VALUE NO; OXYGEN DEVICE VENTILATOR; TEMP CORR TO 98.6
--- NOTE | 2017-01-06 10:52 | RADRPT ---
EXAM DATE/TIME: 01/06/2017 10:32 [facility] COMPARISON: CT BRAIN W/O CONTRAST, November 05, 2016, 13:30. INDICATIONS : Patient found unresponsive RADIATION DOSE: 31.50 CTDIvol (mGy) MEDICAL HISTORY : Seizures. Diabetes mellitus type 1. SURGICAL HISTORY : None. ENCOUNTER: Initial ACUITY: 1 day PAIN SCALE: Non-responsive LOCATION: cranial TECHNIQUE: Multiple contiguous axial images were obtained of the head. Using automated exposure control and adj ustment of the mA and/or kV according to patient size, radiation dose was kept as low as reasonably a chievable to obtain optimal diagnostic quality images. DICOM format image data is available electro nically for review and comparison. FINDINGS: CEREBRUM: The ventricles are normal for age. No evidence of midline shift, mass lesion, hemorrhage or acute in farction. No extra-axial fluid collections are seen. Continued asymmetry of the temporal horns left greater than right are unchanged POSTERIOR FOSSA: The cerebellum and brainstem are intact. The 4th ventricle is midline. The cerebellopontine angle i s unremarkable. EXTRACRANIAL: The visualized portion of the orbits is intact. SKULL: The calvaria is intact. No evidence of skull fracture. CONCLUSION: Normal examination. Oswaldo Goodman MD on January 06, 2017 at 10:49 Board Certified Radiologist. This report was verified electronically.
[2017-01-06 10:53] LABS: DRAW SITE RT RADIAL; FIO2 60 %; NUMBER OF ARTERIAL PUNCTURES 1; STAT YES; ULNAR PULSE PRESENT; VENT SETTINGS 450/14/PEEP5
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
[2017-01-06] MEDS ORDERED: SODIUM CHLOR 0.9% 1000 ML INJ 1,000 ML IV SCH (11:16)
[2017-01-06 11:22] LABS: LACTIC ACID GHOST NOT REPORTABLE
[2017-01-06] MEDS ORDERED: POTASSIUM PHOSPHATE MONOBASIC 500 MG TAB PO PRN (11:30)
[2017-01-06] MEDS ORDERED: POTASSIUM CHLORIDE 25 MEQ EFFERVESCENT TAB PO PRN (11:30)
[2017-01-06] MEDS ORDERED: POTASSIUM CHLOR 20 MEQ PREMIX 100 ML IV PRN ×2 (11:30)
[2017-01-06] MEDS ORDERED: DEXTROSE 50% IN WATER 50 ML VIAL(D50) IV PRN (11:30)
[2017-01-06] MEDS ORDERED: SODIUM PHOSPHATE INJ 30 MMOL in SODIUM CHLOR 0.9% 250 ML INJ 240 ML IV PRN (11:30)
[2017-01-06] MEDS ORDERED: GLUCAGON 1 MG/ML VIAL OTHER PRN (11:30)
[2017-01-06] MEDS ORDERED: CHLORHEXIDINE GLUCONATE 2 % 1 PACK (2 CLOTHS) TOP PRN (11:30)
[2017-01-06] MEDS ORDERED: SODIUM CHLORIDE 0.9% FLUSH 10 ML FLUSH IV FLUSH PRN (11:30)
[2017-01-06] MEDS ORDERED: POTASSIUM PHOSPHATE MONOBASIC 500 MG TAB PO/TUBE PRN (11:30)
[2017-01-06] MEDS ORDERED: MISCELLANEOUS NURSING INFORMATION XX SCH (11:30)
[2017-01-06] MEDS ORDERED: RESP: ALBUTEROL 2.5 MG/3 ML NEB (PRN) INH (11:30)
[2017-01-06] MEDS ORDERED: MAGNESIUM OXIDE 400 MG TAB PO PRN (11:30)
[2017-01-06] MEDS ORDERED: ONDANSETRON HCL 4 MG/2 ML VIAL IV PRN (11:30)
[2017-01-06] MEDS ORDERED: POTASSIUM CHLOR 40 MEQ PREMIX 100 ML IV PRN ×2 (11:30)
[2017-01-06] MEDS ORDERED: POTASSIUM PHOSPHATE INJ 30 MMOL in SODIUM CHLOR 0.9% 250 ML INJ 250 ML IV PRN (11:30)
[2017-01-06] MEDS ORDERED: MAGNESIUM SULFATE INJ 4 GM in SODIUM CHLORIDE 0.9% INJ 92 ML IV PRN (11:30)
[2017-01-06] MEDS ORDERED: MAGNESIUM SULFATE INJ 2 GM in SODIUM CHLORIDE 0.9% INJ 96 ML IV PRN (11:30)
[2017-01-06 11:48] LABS: MAGNESIUM 1.6 MG/DL (1.5-2.5)
[2017-01-06] MEDS: INSULIN NovoLIN REGULAR SUPPLEMENTAL SCALE SQ SCH ×2 (12:40→18:00)
[2017-01-06] MEDS: ARTIFICIAL TEARS OPTH SOLN 15 ML BTL EACH EYE SCH ×2 (12:57→18:00)
[2017-01-06] MEDS ORDERED: THIAMINE INJ 100 MG in SODIUM CHLORIDE 0.9% INJ 100 ML IV ONE (13:00)
[2017-01-06] MEDS: PROPOFOL 1000 MG/100 ML INJ 100 ML IV SCH ×2 (14:19→22:07)
[2017-01-06] MEDS: MAGNESIUM SULFATE 1 GM PREMIX 100 ML IV SCH ×2 (14:27→16:17)
[2017-01-06] MEDS ORDERED: POTASSIUM CHLOR 10 MEQ PREMIX 100 ML IV ONE ×2 (15:15→16:30)
[2017-01-06] MEDS: RESP: ALBUTEROL 2.5 MG/IPRATROPIUM 0.5 MG NEB (SCH) INH ×2 (15:43→22:14)
[2017-01-06 16:59] LABS: BICARBONATE 21.6 MEQ/L (21.0-32.0); POTASSIUM 3.3 MEQ/L (3.5-5.1)
[2017-01-06] MEDS ORDERED: SODIUM BICARBONATE 8.4% INJ 150 MEQ in WATER STERILE FOR INJ 850 ML IV SCH (17:00)
[2017-01-06 17:21] LABS: CALCIUM-PROTEIN CORRECTED 7.5 MG/DL (8.5-10.1)
[2017-01-06] MEDS ORDERED: POTASSIUM CHLOR 10 MEQ PREMIX 100 ML IV SCH (18:00)
[2017-01-06] MEDS: 1/2 NS + KCL 20 MEQ INJ 1,000 ML IV SCH (18:52)
[2017-01-06] MEDS: CHLORHEXIDINE 0.12% (ORAL KIT) 15 ML CUP MT SCH (22:06)
[2017-01-06] MEDS: SODIUM CHLORIDE 0.9% FLUSH 10 ML FLUSH IV FLUSH SCH (22:06)
[2017-01-06] MEDS: POTASSIUM CHLOR 10 MEQ PREMIX 100 ML IV SCH ×3 (22:06→22:58)
[2017-01-07] VITALS (18 sets, daily range): BP systolic 84–128; BP diastolic 57–72; PULSE 63–105; RESP 16–29; TEMP 98.2–99.1; O2SAT 95–100
[2017-01-07] MEDS: 1/2 NS + KCL 20 MEQ INJ 1,000 ML IV SCH ×3 (02:38→22:25)
[2017-01-07] MEDS: PROPOFOL 1000 MG/100 ML INJ 100 ML IV SCH (02:38)
[2017-01-07] MEDS: CHLORHEXIDINE GLUCONATE 2 % 1 PACK (2 CLOTHS) TOP SCH (02:39)
[2017-01-07] MEDS: RESP: ALBUTEROL 2.5 MG/IPRATROPIUM 0.5 MG NEB (SCH) INH ×4 (03:31→21:12)
[2017-01-07 04:22] LABS: AUTOMATED NEUTROPHIL # 8.7 TH/MM3 (1.8-7.7); BASOPHIL # 0.1 TH/MM3 (0-0.2); BASOPHIL % 0.4 % (0.0-2.0); EOSINOPHIL # 0.2 TH/MM3 (0-0.4); EOSINOPHIL % 1.3 % (0.0-4.0); HEMATOCRIT 31.1 % (35.0-46.0); HEMO FLAGS DIFF FINAL; LYMPH % 31.3 % (9.0-44.0); LYMPHOCYTE # 4.4 TH/MM3 (1.0-4.8); MEAN CELL VOLUME 82.9 FL (80.0-100.0); MEAN CORPUSCULAR HEMOGLOBIN 26.3 PG (27.0-34.0); MEAN CORPUSCULAR HGB CONC 31.8 % (32.0-36.0); MONO % 5.4 % (0.0-8.0); NEUT % 61.6 % (16.0-70.0); PLATELET COUNT 452 TH/MM3 (150-450); RED BLOOD COUNT 3.75 MIL/MM3 (4.00-5.30); WHITE BLOOD COUNT 14.1 TH/MM3 (4.0-11.0)
[2017-01-07 04:29] LABS: APTT (PATIENT) 25.4 SEC (24.3-30.1); PROTHROMBIN TIME - PATIENT 11.2 SEC (9.8-11.6)
[2017-01-07 05:12] LABS: ALKALINE PHOSPHATASE 99 U/L (45-117); ALT (GPT) 17 U/L (10-53); ANION GAP 9 MEQ/L (5-15); AST (GOT) 23 U/L (15-37); BLOOD UREA NITROGEN 6 MG/DL (7-18); CHLORIDE 112 MEQ/L (98-107); CREATINE KINASE 624 U/L (26-192); GLOMERULAR FILTRATION RATE 151 ML/MIN (>89); MAGNESIUM 1.9 MG/DL (1.5-2.5); POTASSIUM 4.3 MEQ/L (3.5-5.1); SODIUM (NA) 144 MEQ/L (136-145); TOTAL BILIRUBIN ADULT 0.3 MG/DL (0.2-1.0)
[2017-01-07 05:43] LABS: BLOOD GAS BASE EXCESS -5.4 mmol/L (-2-2); BLOOD GAS CARBOXYHEMOGLOBIN 1.3 % (0-4); BLOOD GAS HCO3 20 mmol/L (22-26); BLOOD GAS METHEMOGLOBIN 1.1 % (0-2); BLOOD GAS O2 HGB SATURATION 97 % (90-100); BLOOD GAS OXYGEN CONTENT 13.1 Vol % (12.0-20.0); BLOOD GAS PCO2 39 mmHg (38-42); BLOOD GAS PO2 161 mmHg (61-120); BLOOD GAS TOTAL HGB 9.4 G/DL (12.0-16.0); CRITICAL VALUE NO; DRAW SITE ART LINE; FIO2 40 %; OXYGEN DEVICE VENTILATOR; STAT NO; TEMP CORR TO 98.6; VENT SETTINGS AC/16/450/PEEP 5
[2017-01-07 05:46] LABS: CKMB 4.4 NG/ML (0.5-3.6)
[2017-01-07] MEDS: INSULIN NovoLIN REGULAR SUPPLEMENTAL SCALE SQ SCH ×5 (06:00→19:51)
[2017-01-07] MEDS: CHLORHEXIDINE 0.12% (ORAL KIT) 15 ML CUP MT SCH ×2 (08:00→19:51)
[2017-01-07] MEDS: SODIUM CHLORIDE 0.9% FLUSH 10 ML FLUSH IV FLUSH SCH ×2 (08:37→19:51)
[2017-01-07] MEDS: FOLIC ACID 1 MG TAB PO SCH (08:37)
[2017-01-07] MEDS: PANTOPRAZOLE SODIUM 40 MG VIAL IV SCH (08:37)
[2017-01-07] MEDS: THIAMINE INJ 100 MG in SODIUM CHLORIDE 0.9% INJ 100 ML IV SCH (08:37)
[2017-01-07] MEDS: MULTIVITAMIN TAB PO SCH (08:37)
[2017-01-07] MEDS: ARTIFICIAL TEARS OPTH SOLN 15 ML BTL EACH EYE SCH ×3 (08:38→17:37)
--- NOTE | 2017-01-07 15:03 | HHI.CCPN ---
Subjective Remarks/Hospital Course 51-year-old female. Date of admission 01/06/2017. 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 She was found today at the back of the "[employer]" next to multiple empty bottles of hand deployment technician. Estimated balm approximately 20 ounces. She was found with altered mental status complaint of abdominal pain. She was emergently intubated in the field using a 7.5 ET tube@21 cm using 2 mg Ativan and 20 mg etomidate. She is transported to [facility] for further evaluation treatment. Baseline laboratories revealed leukocytosis 12,000. Thrombocytosis Renal function within normal limits. Currently making adequate urine. Alcohol ethanol level 394. CPK elevated over 527. Lactic acid 4.1. Anion gap 16. Serum osmolarity 400 with gap Of 27.5. She is currently hemodynamically stable not requiring vasopressors and/or anti-hypertensives. Does not meet threshold for dialysis at this moment. Poison control be contacted. Subjective 01/07: Currently afebrile. Extubated today without consultation. Liver function tests/renal panel all negative. Resting In bed in no acute distress. Objective Vital Signs Date Time Temp Pulse Resp B/P Pulse Ox O2 Delivery O2 Flow Rate FiO2 01/07/17 14:43 100 Nasal Cannula 2 01/07/17 12:59 40 01/07/17 12:00 98.2 95 16 127/68 Arterial Line Intake and Output 01/06/17 01/06/17 01/07/17 08:00 16:00 00:00 Intake Total 1353 ml Output Total 1300 ml 700 ml Balance -1300 ml 653 ml Result Diagram: 01/07/17 0349 01/07/17 0349 Other Results Microbiology Date/Time Procedure Status Source Growth 01/06/17 09:10 Aerobic Blood Culture - Preliminary Resulted Blood Peripheral NO GROWTH IN 1 DAY 01/06/17 09:10 Anaerobic Blood Culture - Preliminary Resulted Blood Peripheral NO GROWTH IN 1 DAY 01/06/17 09:00 Urine Culture - Preliminary Resulted Urine Catheterized Urine Gram Negative [facility] ] Last Impressions Head CT 01/06/17 0924 Signed Impressions: Service Date/Time: Friday, January 06, 2017 10:32 - CONCLUSION: Normal examination. Oswaldo Goodman MD Chest X-Ray 01/06/17 0912 Signed Impressions: Service Date/Time: Friday, January 06, 2017 09:18 - CONCLUSION: ET tube in good position. There is a right humeral neck fracture healing since October but still abundant lucency along the fracture line, probably un-united. Oswaldo Goodman MD Objective Remarks GENERAL: 51 year old female, resting in bed in no acute distress SKIN: Warm and dry. Right upper eyelid and lateral hooding area with ecchymoses duration over anterior tibial regions bilaterally. HEAD: Atraumatic. Normocephalic. EYES: Pupils equal and round about 2 mm bilaterally and reactive. No scleral icterus. No injection or drainage. ENT: No nasal bleeding or discharge. Mucous membranes pink and moist. Oropharynx without erythema or exits NECK: Trachea midline. No JVD. CARDIOVASCULAR: Regular rate and rhythm. S1, S2. No S4. Without murmur RESPIRATORY: Clear to auscultation. Breath sounds equal bilaterally. GASTROINTESTINAL: Abdomen soft, non-tender, nondistended. Hypoactive bowel sounds are appreciated MUSCULOSKELETAL: Extremities without difficulty and peripheral edema. No obvious deformities. NEUROLOGICAL: Cranial nerves II through XII grossly intact. Strength is equal symmetric and normal sensation A/P Assessment and Plan Neuro/Psych: Acute toxic metabolic encephalopathy secondary to ethyl alcohol ingestion Depression/anxiety EtOH History of suicidal ideation Holding Escitalopram 20 mg by mouth daily Holding Quetiapine 100 mg by mouth a night CT brain 01/06 revealed no acute intracranial findings Thiamine, folate and multivitamin daily EtOH withdrawal protocol initiated CV: Lactic acidosis Patient is currently hemodynamically stable. Normal saline at 84 cc an hour. EKG revealed sinus tachycardia around 100. Normal [place], QRS and QT intervals. QTC was 434. Serial lactates have cleared Resp: Acute respiratory failure secondary to AMS Nasal cannula to maintain saturations greater than or equal to 92% Sent discharge while awake Head of bed at 30 Follow-up ABG/chest x-ray in a.m. GI: Gastroesophageal reflux disease Advance diet per speech therapy Pantoprazole 40 mg IV daily for GI prophylaxis/on 20 mg by mouth daily at home dosage Robina-Colace for bowel regimen : Topete catheter will be placed for accurate I's and O's in a critically ill patient Endo: Sliding-scale insulin with Accu-Cheks to maintain euglycemia/low regimen every 6 hours Renal: Mild rhabdo Intentional and ingestion of hand road mixer operator which can include aspirin alcohol/ ethyl alcohol Currently on normal saline at 84 cc an hour. Status post 2 L crystalloid bolus Monitor urine output Accurate I's and O's Follow-up CPK in a.m. Heme: Leukocytosis Thrombocytosis Monitor CBC daily. Follow trends. Follow-up on coags ID: History of ESBL positive Escherichia coli UTI History of MDRO Blood cultures 2, UA ordered Received Zosyn, vancomycin ED FEN: Replace electrolytes as clinically indicated per ICU electrolyte protocol MSK: Recent right humeral neck fracture Placed sling. Outpatient follow-up Access - Utilize peripheral IV. Central line if indicated Prophylaxis - GI - Protonix - DVT - SCD/heparin subcutaneous Level II follow-up Jimi Queen MD Jan 07, 2017 15:03
[2017-01-07] MEDS ORDERED: MISCELLANEOUS PHARMACY INFORMATION XX PRN (15:15)
[2017-01-07] MEDS ORDERED: ASP: Path resistant to other antimicrobials, culture proven PRN (15:15)
[2017-01-07] MEDS ORDERED: FLUMAZENIL 0.5 MG/5 ML VIAL IV PUSH PRN (17:30)
[2017-01-07] MEDS ORDERED: LORazepam 2 MG TAB PO PRN (17:30)
[2017-01-07] MEDS ORDERED: LORazepam 2 MG/ML VIAL IV PUSH PRN ×3 (17:30)
[2017-01-07] MEDS ORDERED: LORazepam 1 MG TAB PO PRN (17:30)
[2017-01-07] MEDS: ERTAPENEM INJ 1,000 MG in SODIUM CHLORIDE 0.9% INJ 100 ML IV SCH (18:15)
--- NOTE | 2017-01-07 19:06 | EKG ---
Date Performed: 01/06/2017 Time Performed: 12:46:13 PTAGE: 51 years EKG: Sinus rhythm Nonspecific ST-T wave changes Compared to previous tracing, the patient is no longer tachycardic NOR MAL ECG PREVIOUS TRACING : 01/06/2017 09.32 DOCTOR: Stephanie Sousa Interpretating Date/Time 01/07/2017 19:05:22
--- NOTE | 2017-01-07 19:06 | EKG ---
Date Performed: 01/06/2017 Time Performed: 18:50:32 PTAGE: 51 years EKG: Sinus rhythm WITH SINUS ARRHYTHMIA Nonspecific ST-T wave changes Compared to prior tracing no significant change NORMAL ECG PREVIOUS TRACING : 01/06/2017 12.46 DOCTOR: Stephanie Sousa Interpretating Date/Time 01/07/2017 19:05:47
[2017-01-07] MEDS: LORazepam 2 MG/ML VIAL IV PUSH PRN (22:26)
[2017-01-08] VITALS (14 sets, daily range): BP systolic 89–128; BP diastolic 53–78; PULSE 75–91; RESP 13–18; TEMP 97.6–98.6; O2SAT 91–98
[2017-01-08] MEDS: RESP: ALBUTEROL 2.5 MG/IPRATROPIUM 0.5 MG NEB (SCH) INH ×3 (03:39→22:35)
[2017-01-08] MEDS: CHLORHEXIDINE GLUCONATE 2 % 1 PACK (2 CLOTHS) TOP SCH (04:00)
[2017-01-08 05:28] LABS: AUTOMATED NEUTROPHIL # 5.3 TH/MM3 (1.8-7.7); BASOPHIL # 0.1 TH/MM3 (0-0.2); BASOPHIL % 0.6 % (0.0-2.0); EOSINOPHIL # 0.3 TH/MM3 (0-0.4); EOSINOPHIL % 3.3 % (0.0-4.0); HEMATOCRIT 31.2 % (35.0-46.0); HEMO FLAGS DIFF FINAL; LYMPH % 31.2 % (9.0-44.0); LYMPHOCYTE # 2.8 TH/MM3 (1.0-4.8); MEAN CELL VOLUME 82.9 FL (80.0-100.0); MEAN CORPUSCULAR HEMOGLOBIN 26.6 PG (27.0-34.0); MEAN CORPUSCULAR HGB CONC 32.1 % (32.0-36.0); MONO % 6.5 % (0.0-8.0); NEUT % 58.4 % (16.0-70.0); PLATELET COUNT 379 TH/MM3 (150-450); RED BLOOD COUNT 3.77 MIL/MM3 (4.00-5.30); RED CELL DISTRIBUTION WIDTH 19.5 % (11.6-17.2); WHITE BLOOD COUNT 9.1 TH/MM3 (4.0-11.0)
[2017-01-08 05:56] LABS: ANION GAP 8 MEQ/L (5-15); AST (GOT) 18 U/L (15-37); BICARBONATE 25.1 MEQ/L (21.0-32.0); BLOOD UREA NITROGEN 3 MG/DL (7-18); CHLORIDE 105 MEQ/L (98-107); GLOMERULAR FILTRATION RATE 173 ML/MIN (>89); MAGNESIUM 1.6 MG/DL (1.5-2.5); POTASSIUM 3.8 MEQ/L (3.5-5.1); SODIUM (NA) 138 MEQ/L (136-145)
[2017-01-08 05:58] LABS: ALT (GPT) 14 U/L (10-53)
[2017-01-08 06:00] LABS: ALKALINE PHOSPHATASE 103 U/L (45-117); TOTAL BILIRUBIN ADULT 0.4 MG/DL (0.2-1.0)
[2017-01-08] MEDS: INSULIN NovoLIN REGULAR SUPPLEMENTAL SCALE SQ SCH ×4 (06:22→21:00)
[2017-01-08] MEDS: CHLORHEXIDINE 0.12% (ORAL KIT) 15 ML CUP MT SCH ×2 (07:42→20:00)
[2017-01-08] MEDS: THIAMINE INJ 100 MG in SODIUM CHLORIDE 0.9% INJ 100 ML IV SCH (09:00)
[2017-01-08] MEDS: FOLIC ACID 1 MG TAB PO SCH (09:00)
[2017-01-08] MEDS: MULTIVITAMIN TAB PO SCH (09:00)
[2017-01-08] MEDS: SODIUM CHLORIDE 0.9% FLUSH 10 ML FLUSH IV FLUSH SCH ×2 (09:00→21:00)
[2017-01-08] MEDS: PANTOPRAZOLE SODIUM 40 MG VIAL IV SCH (09:00)
[2017-01-08] MEDS: ARTIFICIAL TEARS OPTH SOLN 15 ML BTL EACH EYE SCH ×3 (09:00→17:00)
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
[2017-01-08] MEDS: LORazepam 2 MG/ML VIAL IV PUSH PRN (10:56)
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
[2017-01-08] MEDS: diphenhydrAMINE HCL 25 MG CAP PO PRN ×2 (16:07→22:28)
[2017-01-08] MEDS: ESCITALOPRAM OXALATE 10 MG TAB PO SCH (16:08)
--- NOTE | 2017-01-08 16:50 | RADRPT ---
EXAM DATE/TIME: 01/08/2017 16:26 [facility] COMPARISON: SHOULDER RIGHT LTD (2VWS), September 05, 2016, 14:40. CHEST SINGLE AP, January 06, 2017, 9:18. CHEST SINGL E AP, November 05, 2016, 12:25. INDICATIONS : Evaluate known right shoulder fracture MEDICAL HISTORY : Confusion, Seizures, Right shoulder fracture 09/04 SURGICAL HISTORY : Unknown ENCOUNTER: Initial ACUITY: 1 day PAIN SCORE: Non-responsive. LOCATION: Right shoulder FINDINGS: 4 views of the right shoulder demonstrate an oblique displaced fracture through the metaphysis at the surgical neck. There is increased displacement and angulation compared to the prior studies. There i s approximately 90 of angulation fracture. Some bony callus is present adjacent to the fracture site . Acromioclavicular joint is intact. There is no glenohumeral joint dislocation. There is atelectasis in the right lower lung zone. 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 There is bony callu s present but there is likely increased angulation compared to the prior study. Christopher العلي MD on January 08, 2017 at 16:46 Board Certified Radiologist. This report was verified electronically.
[2017-01-08] MEDS: ERTAPENEM INJ 1,000 MG in SODIUM CHLORIDE 0.9% INJ 100 ML IV SCH (17:00)
[2017-01-08] MEDS: 1/2 NS + KCL 20 MEQ INJ 1,000 ML IV SCH (17:01)
[2017-01-08] MEDS: QUEtiapine FUMARATE 100 MG TAB PO SCH (21:00)
[2017-01-08] MEDS: ACETAMINOPHEN/HYDROcodone 325 MG/5 MG TAB PO PRN (22:28)
[2017-01-09] VITALS (8 sets, daily range): BP systolic 94–114; BP diastolic 57–70; PULSE 66–110; RESP 16–20; TEMP 96.8–98.4; O2SAT 94–98
[2017-01-09] MEDS: 1/2 NS + KCL 20 MEQ INJ 1,000 ML IV SCH ×2 (01:34→09:18)
[2017-01-09] MEDS: RESP: ALBUTEROL 2.5 MG/IPRATROPIUM 0.5 MG NEB (SCH) INH ×4 (04:00→19:59)
[2017-01-09] MEDS: CHLORHEXIDINE GLUCONATE 2 % 1 PACK (2 CLOTHS) TOP SCH (04:00)
[2017-01-09] MEDS: ACETAMINOPHEN/HYDROcodone 325 MG/5 MG TAB PO PRN ×3 (05:55→20:18)
[2017-01-09] MEDS: INSULIN NovoLIN REGULAR SUPPLEMENTAL SCALE SQ SCH ×4 (05:58→21:00)
[2017-01-09 07:10] LABS: HEMATOCRIT 28.4 % (35.0-46.0); MEAN CELL VOLUME 81.5 FL (80.0-100.0); MEAN CORPUSCULAR HEMOGLOBIN 27.3 PG (27.0-34.0); MEAN CORPUSCULAR HGB CONC 33.5 % (32.0-36.0); PLATELET COUNT 360 TH/MM3 (150-450); RED BLOOD COUNT 3.48 MIL/MM3 (4.00-5.30); RED CELL DISTRIBUTION WIDTH 19.5 % (11.6-17.2); REVIEW FLAG FINAL; WHITE BLOOD COUNT 7.3 TH/MM3 (4.0-11.0)
[2017-01-09 07:40] LABS: BICARBONATE 27.4 MEQ/L (21.0-32.0); POTASSIUM 3.6 MEQ/L (3.5-5.1)
[2017-01-09] MEDS: CHLORHEXIDINE 0.12% (ORAL KIT) 15 ML CUP MT SCH ×2 (07:59→20:00)
[2017-01-09] MEDS: THIAMINE INJ 100 MG in SODIUM CHLORIDE 0.9% INJ 100 ML IV SCH (09:18)
[2017-01-09] MEDS: FOLIC ACID 1 MG TAB PO SCH (10:34)
[2017-01-09] MEDS: ARTIFICIAL TEARS OPTH SOLN 15 ML BTL EACH EYE SCH ×3 (10:34→17:20)
[2017-01-09] MEDS: SODIUM CHLORIDE 0.9% FLUSH 10 ML FLUSH IV FLUSH SCH ×2 (10:34→20:19)
[2017-01-09] MEDS: MULTIVITAMIN TAB PO SCH (10:34)
[2017-01-09] MEDS: ESCITALOPRAM OXALATE 10 MG TAB PO SCH (10:34)
[2017-01-09] MEDS: diphenhydrAMINE HCL 25 MG CAP PO PRN ×2 (10:34→16:47)
[2017-01-09] MEDS: PANTOPRAZOLE SODIUM 40 MG VIAL IV SCH (10:34)
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
[2017-01-09] MEDS: ERTAPENEM INJ 1,000 MG in SODIUM CHLORIDE 0.9% INJ 100 ML IV SCH (17:20)
[2017-01-09] MEDS: QUEtiapine FUMARATE 100 MG TAB PO SCH (20:17)
[2017-01-10] VITALS: BP 106/67; PULSE 83; RESP 17; TEMP 98.6; O2SAT 96
[2017-01-10] MEDS: CHLORHEXIDINE GLUCONATE 2 % 1 PACK (2 CLOTHS) TOP SCH (03:01)
[2017-01-10] MEDS: RESP: ALBUTEROL 2.5 MG/IPRATROPIUM 0.5 MG NEB (SCH) INH ×2 (03:17→08:00)
[2017-01-10 04:00] VITALS: BP 100/68; PULSE 72; RESP 17; TEMP 97.5; O2SAT 96
[2017-01-10] MEDS: ACETAMINOPHEN/HYDROcodone 325 MG/5 MG TAB PO PRN ×2 (04:38→10:25)
[2017-01-10] MEDS: INSULIN NovoLIN REGULAR SUPPLEMENTAL SCALE SQ SCH ×2 (07:00→11:58)
[2017-01-10] MEDS: CHLORHEXIDINE 0.12% (ORAL KIT) 15 ML CUP MT SCH (07:19)
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
[2017-01-10 08:00] VITALS: BP 107/65; PULSE 82; RESP 20; TEMP 97.3; O2SAT 95
[2017-01-10] MEDS ORDERED: ERGOCALCIFEROL (VIT D2) 50,000 UNIT CAP PO SCH (08:00)
[2017-01-10 08:02] VITALS: O2SAT 97
[2017-01-10] MEDS: ARTIFICIAL TEARS OPTH SOLN 15 ML BTL EACH EYE SCH ×2 (08:08→13:00)
[2017-01-10] MEDS: THIAMINE INJ 100 MG in SODIUM CHLORIDE 0.9% INJ 100 ML IV SCH (08:08)
[2017-01-10] MEDS: diphenhydrAMINE HCL 25 MG CAP PO PRN (08:08)
[2017-01-10] MEDS: PANTOPRAZOLE SODIUM 40 MG VIAL IV SCH (08:08)
[2017-01-10] MEDS: SODIUM CHLORIDE 0.9% FLUSH 10 ML FLUSH IV FLUSH SCH (08:09)
[2017-01-10] MEDS ORDERED: CHOLECALCIFEROL (VIT D3) 1000 UNIT TAB PO SCH (09:00)
[2017-01-10] MEDS ORDERED: CALCIUM/VITAMIN D 250 MG/125 U TAB PO SCH (09:00)
[2017-01-10] MEDS: MULTIVITAMIN TAB PO SCH (10:00)
[2017-01-10] MEDS: FOLIC ACID 1 MG TAB PO SCH (10:00)
[2017-01-10] MEDS: ESCITALOPRAM OXALATE 10 MG TAB PO SCH (10:01)
[2017-01-10] MEDS ORDERED: CALC250 PO (11:58)
[2017-01-10] MEDS ORDERED: VITA1000 PO (11:58)
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
[2017-01-10 12:41] VITALS: BP 107/64; PULSE 72; RESP 20; TEMP 97.8; O2SAT 97
[2017-01-11] MEDS ORDERED: PANT20 PO (13:19)
== END 2017-01-10 13:48 | DRG 917 ==
LOC: NEPC 09:09 → NEDA 11:09 → HIME 13:55 → HOCB 01-08 13:18
PROVIDERS: ADMIT Family Medicine; ATTEND Family Medicine
PROC: 0BH17EZ Insertion of Endotracheal Airway into Trachea, Via Natural or Artificial Opening (ICD-10-PCS; principal; 2017-01-06)
DX: T51.2X2A Toxic effect of 2-Propanol, intentional self-harm, initial encounter (principal); J96.00 Acute respiratory failure, unspecified whether with hypoxia or hypercapnia; G92 Toxic encephalopathy; E87.2 Acidosis; S42.211A Unspecified displaced fracture of surgical neck of right humerus, initial encounter for closed fracture; N30.90 Cystitis, unspecified without hematuria; F10.229 Alcohol dependence with intoxication, unspecified; E86.0 Dehydration; W06.XXXA Fall from bed, initial encounter; Y92.003 Bedroom of unspecified non-institutional (private) residence as the place of occurrence of the external cause; K21.9 Gastro-esophageal reflux disease without esophagitis; Z79.899 Other long term (current) drug therapy; B96.20 Unspecified Escherichia coli [E. coli] as the cause of diseases classified elsewhere; F17.210 Nicotine dependence, cigarettes, uncomplicated; F41.8 Other specified anxiety disorders; Z87.440 Personal history of urinary (tract) infections
CPT/HCPCS: 36600; 36620; 43753; 51702; 70450; 71010; 73030; 80048; 80053; 80307; 81001; 82010; 82140; 82550; 82552; 82805; 82948; 83605; 83735; 83930; 83935; 84100; 84155; 84443; 84478; 84484; 85025; 85027; 85610; 85730; 87040; 87077; 87086; 87186; 87641; 93005; 94002; 94003; 94150; 94640; 94664; 96374; C9113; J1335; J2060; J2543; J3010; J3370; J3411; J3475; J3480; J7030; J7050

== ENCOUNTER 2017-01-10 14:12 | Inpatient (IN) | payer SELFPAY ==
[~2017-01-10] VITALS: Ht 160 cm; Wt 55.7 kg
[~2017-01-10 14:12] MED LIST changes: +CALC250 PO; +VITA1000 PO
[2017-01-10] MEDS ORDERED: LORazepam 0.5 MG TAB PO PRN (14:30)
[2017-01-10] MEDS ORDERED: ALUMINUM/MAGNESIUM/SIMETH 30 ML CUP PO PRN (14:30)
[2017-01-10] MEDS ORDERED: MAGNESIUM HYDROXIDE SUSP 30 ML CUP PO PRN (14:30)
[2017-01-10] MEDS ORDERED: LORazepam 1 MG TAB PO PRN (14:30)
[2017-01-10] MEDS ORDERED: LORazepam 2 MG/ML VIAL IM PRN ×2 (14:30)
[2017-01-10] MEDS: NICOTINE 21 MG/24 HR PATCH T-DERMAL SCH (15:13)
[2017-01-10 16:18] VITALS: BP 132/83; PULSE 86; RESP 14; TEMP 98.1; O2SAT 95
[2017-01-10 18:00] VITALS: BP 132/83; PULSE 86; RESP 19; TEMP 97.9; O2SAT 95
[2017-01-10] MEDS: QUEtiapine FUMARATE 100 MG TAB PO SCH (21:20)
[2017-01-10] MEDS: diphenhydrAMINE HCL 25 MG CAP PO PRN (22:00)
[2017-01-10] MEDS: ACETAMINOPHEN 325 MG TAB PO PRN (22:01)
[2017-01-11 05:11] VITALS: BP 120/68; PULSE 64; RESP 16; TEMP 98; O2SAT 96
[2017-01-11] MEDS: PANTOPRAZOLE SOD 20 MG DELAYED RELEASE TAB PO SCH (08:08)
[2017-01-11] MEDS: ESCITALOPRAM OXALATE 20 MG TAB PO SCH (08:08)
[2017-01-11] MEDS: NICOTINE 21 MG/24 HR PATCH T-DERMAL SCH (08:08)
[2017-01-11] MEDS: diphenhydrAMINE HCL 25 MG CAP PO PRN ×3 (08:11→21:30)
[2017-01-11] MEDS: ACETAMINOPHEN 325 MG TAB PO PRN ×3 (08:11→21:31)
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
[2017-01-11 11:44] LABS: ANION GAP 8 MEQ/L (5-15); BICARBONATE 28.4 MEQ/L (21.0-32.0); CHLORIDE 103 MEQ/L (98-107); GLOMERULAR FILTRATION RATE 94 ML/MIN (>89); POTASSIUM 3.9 MEQ/L (3.5-5.1); SODIUM (NA) 139 MEQ/L (136-145)
[2017-01-11 11:48] LABS: HDL CHOLESTEROL 54.2 MG/DL (40.0-60.0); LDL CHOLESTEROL 106 MG/DL (0-99)
[2017-01-11 11:52] LABS: BLOOD UREA NITROGEN 6 MG/DL (7-18)
[2017-01-11] MEDS ORDERED: PANT20 PO (13:19)
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
[2017-01-11 15:41] VITALS: BP 119/79; PULSE 95; RESP 18; TEMP 98.6; O2SAT 97
[2017-01-11 18:00] VITALS: BP 119/79; PULSE 95; RESP 18; TEMP 98.6; O2SAT 97
[2017-01-11 18:29] LABS: HEMOGLOBIN A1a 1.3 %; HEMOGLOBIN A1b 0.9 %; HEMOGLOBIN Ao 85.2 %; HEMOGLOBIN F 1.1 %; HEMOGLOBIN LA1C 1.7 %; HEMOGLOBIN P3 3.5 %
[2017-01-11] MEDS ORDERED: GABAPENTIN 300 MG CAP PO SCH (21:00)
[2017-01-11] MEDS: QUEtiapine FUMARATE 100 MG TAB PO SCH (21:30)
[2017-01-12] MEDS: hydrOXYzine HCL 50 MG TAB PO PRN ×3 (00:04→15:38)
[2017-01-12 05:56] VITALS: BP 99/58; PULSE 70; RESP 18; TEMP 98.1; O2SAT 97
[2017-01-12] MEDS: MULTIVITAMINS/MINERALS THERAPEUTIC TAB PO SCH (09:39)
[2017-01-12] MEDS: ESCITALOPRAM OXALATE 20 MG TAB PO SCH (09:39)
[2017-01-12] MEDS: THIAMINE HCL 100 MG TAB PO SCH (09:39)
[2017-01-12] MEDS: NICOTINE 21 MG/24 HR PATCH T-DERMAL SCH (09:40)
[2017-01-12] MEDS: PANTOPRAZOLE SOD 20 MG DELAYED RELEASE TAB PO SCH (09:40)
[2017-01-12] MEDS: FOLIC ACID 1 MG TAB PO SCH (09:40)
[2017-01-12] MEDS: ACETAMINOPHEN 325 MG TAB PO PRN ×2 (09:41→15:38)
--- NOTE | 2017-01-12 15:41 | HHI.PYPN ---
Subjective Remarks Patient seen and examined with counselor and nurse. Chart reviewed. CIWA 0. Case discussed in treatment team. On my examination today, patient continues to complain of poor sleep secondary to restless leg phenomenon which she associates completely with Seroquel. She doesn't think the Seroquel helps much with sleep and didn't think the gabapentin help with the restless legs last night. She would like to discontinue the Seroquel. Mood remains little depressed. No SI or HI. No side effects from medications otherwise. No other physical complaints. Review of Systems Except as stated in HPI: all other systems reviewed are Neg Objective Alert: Yes Robbins: Person (oriented 3) Mood: Depressed (mild) Affect: Blunted Memory Intact: Comment (intact) Hallucinations: Other (no hallucinations) Delusions: No Delusion Type: Other (no delusions elicited) Suicidal: Ideation (no SI) Homicidal: Ideation (no HI) Insight/Judgment Fair Remarks No motor abnormalities noted Labs Labs reviewed Vitals/IOs Vital Signs Date Time Temp Pulse Resp B/P Pulse Ox O2 Delivery O2 Flow Rate FiO2 01/12/17 05:56 98.1 70 18 99/58 97 Assessment & Plan Problem List: (1) Alcohol dependence ICD Code: F10.20 Assessment & Plan Discontinue Seroquel and gabapentin. Add Remeron 15 mg at bedtime to help with sleep and mood. Risks, benefits and alternatives discussed with the patient. Continue Lexapro as ordered. Continue to monitor on the inpatient unit. Continue other medications and care as ordered. Justification for Cont. Inpt. Medication changes. Risk for decompensation. Discharge Planning Pending stabilization. Request HC Surrog/Guard Advoc?: No Problem Qualifiers (1) Alcohol dependence: Qualified Code: F10.24 - Alcohol dependence with alcohol-induced mood disorder Khalif Hung MD Jan 12, 2017 15:41
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
[2017-01-12 16:00] VITALS: BP 129/80; PULSE 88; RESP 18; TEMP 98.1; O2SAT 99
[2017-01-12 18:00] VITALS: BP 129/80; PULSE 88; RESP 18; TEMP 98.1; O2SAT 99
[2017-01-12] MEDS: MIRTAZAPINE 15 MG TAB PO SCH (21:35)
[2017-01-12] MEDS: diphenhydrAMINE HCL 25 MG CAP PO PRN (21:35)
[2017-01-13 06:00] VITALS: BP 108/69; PULSE 69; RESP 16; TEMP 97.9; O2SAT 97
[2017-01-13] MEDS: MULTIVITAMINS/MINERALS THERAPEUTIC TAB PO SCH (08:57)
[2017-01-13] MEDS: ESCITALOPRAM OXALATE 20 MG TAB PO SCH (08:57)
[2017-01-13] MEDS: THIAMINE HCL 100 MG TAB PO SCH (08:57)
[2017-01-13] MEDS: FOLIC ACID 1 MG TAB PO SCH (08:57)
[2017-01-13] MEDS: PANTOPRAZOLE SOD 20 MG DELAYED RELEASE TAB PO SCH (08:57)
[2017-01-13] MEDS: NICOTINE 21 MG/24 HR PATCH T-DERMAL SCH (08:58)
[2017-01-13] MEDS: hydrOXYzine HCL 50 MG TAB PO PRN ×2 (09:00→20:05)
[2017-01-13] MEDS: ACETAMINOPHEN 325 MG TAB PO PRN ×3 (09:00→20:06)
--- NOTE | 2017-01-13 11:34 | HHI.PYPN ---
Subjective Remarks Patient seen and examined with nurse. Chart reviewed. Case discussed with nursing staff who reports that the patient complained of poor sleep but was noted by night staff to have slept about 7 hours. Counselor informs me that the patient's options regarding living situation are unfortunately quite limited. On my exam, patient reports that she is anxious regarding her housing situation but otherwise doing well. She denies any SI/HI. Does complain of subjectively poor sleep but says that she did not have restless legs last night , which helped somewhat. Denies side effects from meds. No physical complaints. Review of Systems Except as stated in HPI: all other systems reviewed are Neg Objective Alert: Yes Camargo: Person, Place (at least) Mood: Anxious (mild) Affect: Appropriate Memory Intact: Comment (intact on clinical exam) Hallucinations: Other (No AVH) Delusions: No Delusion Type: Other (No delusions) Suicidal: Ideation (Denies SI) Homicidal: Ideation (Denies HI) Insight/Judgment Poor Remarks No motor abnormalities noted. Thought process linear. Grooming and hygiene good. Labs Labs reviewed. Vitals/IOs Vital Signs Date Time Temp Pulse Resp B/P Pulse Ox O2 Delivery O2 Flow Rate FiO2 01/13/17 06:00 97.9 69 16 108/69 97 Intake and Output 01/12/17 01/12/17 01/13/17 08:00 16:00 00:00 Intake Total 240 ml Balance 240 ml Assessment & Plan Problem List: (1) Alcohol dependence ICD Code: F10.20 Assessment & Plan Continue Remeron and Lexapro as ordered. Continue other medications and care as ordered. Justification for Cont. Inpt. Monitoring effects of med adjustments. Discharge Planning Anticipate discharge tomorrow, . Request HC Surrog/Guard Advoc?: No Problem Qualifiers (1) Alcohol dependence: Qualified Code: F10.24 - Alcohol dependence with alcohol-induced mood disorder Khalif Hung MD Jan 13, 2017 11:34
[2017-01-13] MEDS: diphenhydrAMINE HCL 25 MG CAP PO PRN ×2 (13:39→22:05)
[2017-01-13 19:10] VITALS: BP 119/71; PULSE 90; RESP 18; TEMP 98.6; O2SAT 100
[2017-01-13] MEDS: MIRTAZAPINE 15 MG TAB PO SCH (20:05)
[2017-01-14 06:00] VITALS: BP 109/66; PULSE 71; RESP 18; TEMP 97.6; O2SAT 97
[2017-01-14] MEDS: FOLIC ACID 1 MG TAB PO SCH (08:30)
[2017-01-14] MEDS: MULTIVITAMINS/MINERALS THERAPEUTIC TAB PO SCH (08:31)
[2017-01-14] MEDS: PANTOPRAZOLE SOD 20 MG DELAYED RELEASE TAB PO SCH (08:31)
[2017-01-14] MEDS: THIAMINE HCL 100 MG TAB PO SCH (08:31)
[2017-01-14] MEDS: ESCITALOPRAM OXALATE 20 MG TAB PO SCH (08:31)
[2017-01-14] MEDS: NICOTINE 21 MG/24 HR PATCH T-DERMAL SCH (08:31)
[2017-01-14] MEDS: hydrOXYzine HCL 50 MG TAB PO PRN (11:39)
[2017-01-14] MEDS: ACETAMINOPHEN 325 MG TAB PO PRN (11:39)
[2017-01-14] MEDS ORDERED: ESCI10TA PO (12:25)
[2017-01-14] MEDS ORDERED: GABA300C5 PO (12:25)
[2017-01-14] MEDS ORDERED: QUET1TAB8 PO (12:25)
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
== END 2017-01-14 13:15 | disposition home or self-care (01) | DRG 881 ==
LOC: H260 14:12
PROVIDERS: ADMIT Psychiatry & Neurology Psychiatry; ATTEND Psychiatry & Neurology Psychiatry
DX: F32.9 Major depressive disorder, single episode, unspecified (principal); F10.24 Alcohol dependence with alcohol-induced mood disorder; S42.211K Unspecified displaced fracture of surgical neck of right humerus, subsequent encounter for fracture with nonunion; K21.9 Gastro-esophageal reflux disease without esophagitis; G25.81 Restless legs syndrome; F17.210 Nicotine dependence, cigarettes, uncomplicated; T43.595A Adverse effect of other antipsychotics and neuroleptics, initial encounter; Z91.5 Personal history of self-harm
CPT/HCPCS: 80048; 80061; 83036

== ENCOUNTER 2017-01-14 20:00 | Emergency (ER) | payer SELFPAY ==
[~2017-01-14 20:00] MED LIST changes: -BACT800T5 PO; -CIPR-9 PO; +GABA300C5 PO
[2017-01-14 20:09] VITALS: BP 128/79; PULSE 84; RESP 18; TEMP 98.2; O2SAT 96
[2017-01-14] MEDS ORDERED: ONDANSETRON HCL 4 MG/2 ML VIAL IV PUSH ONE (20:15)
[2017-01-14] MEDS ORDERED: SODIUM CHLORIDE 0.9% FLUSH 5 ML FLUSH IV FLUSH PRN (20:15)
[2017-01-14 20:36] VITALS: RESP 18; O2SAT 98
[2017-01-14 20:41] LABS: AUTOMATED NEUTROPHIL # 4.5 TH/MM3 (1.8-7.7); BASOPHIL % 0.4 % (0.0-2.0); EOSINOPHIL # 0.1 TH/MM3 (0-0.4); EOSINOPHIL % 1.7 % (0.0-4.0); HEMATOCRIT 32.8 % (35.0-46.0); HEMO FLAGS DIFF FINAL; LYMPH % 37.4 % (9.0-44.0); MEAN CELL VOLUME 81.8 FL (80.0-100.0); MEAN CORPUSCULAR HEMOGLOBIN 26.6 PG (27.0-34.0); MEAN CORPUSCULAR HGB CONC 32.5 % (32.0-36.0); NEUT % 56.5 % (16.0-70.0); PLATELET COUNT 436 TH/MM3 (150-450); RED BLOOD COUNT 4.01 MIL/MM3 (4.00-5.30); RED CELL DISTRIBUTION WIDTH 19.5 % (11.6-17.2)
[2017-01-14 21:26] LABS: ANION GAP 10 MEQ/L (5-15); BICARBONATE 20.8 MEQ/L (21.0-32.0); BLOOD UREA NITROGEN 14 MG/DL (7-18); CHLORIDE 108 MEQ/L (98-107); GLOMERULAR FILTRATION RATE 96 ML/MIN (>89); POTASSIUM 3.5 MEQ/L (3.5-5.1); SODIUM (NA) 139 MEQ/L (136-145)
[2017-01-14 21:28] LABS: AST (GOT) 13 U/L (15-37)
[2017-01-14 21:33] LABS: AMPHETAMINE, URINE NEG (NEG); BARBITURATES, URINE NEG (NEG); COCAINE, URINE NEG (NEG)
[2017-01-14 21:40] LABS: ACETAMINOPHEN LESS THAN 2.0 MCG/ML (10.0-30.0); ALKALINE PHOSPHATASE 87 U/L (45-117); ALT (GPT) 19 U/L (10-53); TOTAL BILIRUBIN ADULT 0.2 MG/DL (0.2-1.0)
--- NOTE | 2017-01-14 21:52 | PD ---
HPI Chief Complaint: Alcohol/Drug Intoxication Time Seen by Provider: 20:10 Travel History International Travel<30 days: No Contact w/Intl Traveler<30days: No Traveled to known affect area: No History of Present Illness HPI 51-year-old female arrives by EMS. [place]. She had vomited. EMS reports her GCS on scene is 13. In the ER she reports drinking alcohol today. She does not recall how much she drank. She denies drug abuse. She has no medical complaint. EMS reports vital signs are normal on scene. Blood sugar was about 130. The patient has a bed available at [facility] 7:30 tomorrow morning. She arrives with a hand clock and watch hands dipper bottle that is 62% ethyl alcohol. PFSH Past Medical History Hx Anticoagulant Therapy: No Arthritis: No Asthma: No Autoimmune Disease: No Blood Disorders: No Anxiety: Yes Depression: Yes Heart Rhythm Problems: No Cancer: No Cardiovascular Problems: No High Cholesterol: No Chemotherapy: No Chest Pain: No Congestive Heart Failure: No COPD: No Cerebrovascular Accident: No Diminished Hearing: No Endocrine: No Gastrointestinal Disorders: Yes GERD: Yes Genitourinary: No Hiatal Hernia: No Immune Disorder: No Kidney Stones: No Musculoskeletal: Yes (R SHOULDER FX) Neurologic: No Psychiatric: Yes Reproductive: No Respiratory: No Migraines: No Radiation Therapy: No Renal Failure: No Seizures: No Sickle Cell Disease: No Sleep Apnea: No Thyroid Disease: No Ulcer: Yes ?: Not Menopausal: Yes : 2 Para: 2 Miscarriage: 0 : 0 Past Surgical History Abdominal Surgery: No AICD: No Arteriovenous Shunt: No Cardiac Surgery: No Section: Yes (X 1) Ear Surgery: No Endocrine Surgery: No Eye Surgery: No Genitourinary Surgery: No Gynecologic Surgery: Yes (C SECTION 2004) Hysterectomy: No Insulin Pump: No Joint Replacement: No Oral Surgery: Yes Pacemaker: No Thoracic Surgery: No Other Surgery: Yes Social History Alcohol Use: Yes Tobacco Use: Yes Substance Use: No Allergies-Medications (Allergen,Severity, Reaction): Coded Allergies: *MDRO Multi-Drug Resistant Organism (Verified Adverse Reaction, Unknown, ) 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, 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 ESBL+E.Coli (urine-02/16/16 & 10/14/16) Reported Meds & Prescriptions Reported Meds & Active Scripts Active Gabapentin 300 Mg Cap 300 Mg PO HS 15 Days Quetiapine (Quetiapine Fumarate) 100 Mg Tab 100 Mg PO HS 15 Days Escitalopram (Escitalopram Oxalate) 10 Mg Tab 20 Mg PO DAILY 15 Days Protonix (Pantoprazole Sodium) 20 Mg Tab 20 Mg PO DAILY Oyster Shell 250 mg + Vit D Tb (Calcium/Vitamin D) 250 Mg Calcium (625 Mg)-125 Unit Tablet 250 Mg PO Q12HR Protonix (Pantoprazole Sodium) 20 Mg Tab 20 Mg PO DAILY Review of Systems Except as stated in HPI: all other systems reviewed are Neg Physical Exam Narrative GENERAL: 51-year-old female no acute distress EtOH on breath, disheveled SKIN: Focused skin assessment warm/dry. HEAD: Atraumatic. Normocephalic. EYES: Pupils equal and round. No scleral icterus. No injection or drainage. ENT: No nasal bleeding or discharge. Mucous membranes pink and moist. NECK: Trachea midline. No JVD. CARDIOVASCULAR: Regular rate and rhythm. No murmur appreciated. RESPIRATORY: No accessory muscle use. Clear to auscultation. Breath sounds equal bilaterally. GASTROINTESTINAL: Abdomen soft, non-tender, nondistended. Hepatic and splenic margins not palpable. MUSCULOSKELETAL: No obvious deformities. No clubbing. No cyanosis. No edema. NEUROLOGICAL: Awake and alert. No obvious cranial nerve deficits. Motor grossly within normal limits. Normal speech. PSYCHIATRIC: No suicidal or homicidal ideation. EtOH on breath. Data Data Last Documented VS Vital Signs Date Time Temp Pulse Resp B/P Pulse Ox O2 Delivery O2 Flow Rate FiO2 01/14/17 20:36 18 98 01/14/17 20:14 82 01/14/17 20:09 98.2 128/79 Vital signs reviewed Orders Complete Blood Count With Diff (01/14/17 20:15) Comprehensive Metabolic Panel (01/14/17 20:15) Ecg Monitoring (01/14/17 20:15) Iv Access Insert/Monitor (01/14/17 20:15) Oximetry (01/14/17 20:15) Sodium Chloride 0.9% Flush (Ns Flush) (01/14/17 20:15) Drug Screen, Random Urine (01/14/17 20:15) Alcohol (Ethanol) (01/14/17 20:15) Tylenol (Acetaminophen) (01/14/17 20:15) Ondansetron Inj (Zofran Inj) (01/14/17 20:15) Labs Laboratory Tests Test 01/14/17 20:25 White Blood Count 8.0 TH/MM3 Red Blood Count 4.01 MIL/MM3 Hemoglobin 10.7 GM/DL Hematocrit 32.8 % Mean Corpuscular Volume 81.8 FL Mean Corpuscular Hemoglobin 26.6 PG Mean Corpuscular Hemoglobin 32.5 % Concent Red Cell Distribution Width 19.5 % Platelet Count 436 TH/MM3 Mean Platelet Volume 6.2 FL Neutrophils (%) (Auto) 56.5 % Lymphocytes (%) (Auto) 37.4 % Monocytes (%) (Auto) 4.0 % Eosinophils (%) (Auto) 1.7 % Basophils (%) (Auto) 0.4 % Neutrophils # (Auto) 4.5 TH/MM3 Lymphocytes # (Auto) 3.0 TH/MM3 Monocytes # (Auto) 0.3 TH/MM3 Eosinophils # (Auto) 0.1 TH/MM3 Basophils # (Auto) 0.0 TH/MM3 CBC Comment DIFF FINAL Differential Comment Sodium Level 139 MEQ/L Potassium Level 3.5 MEQ/L Chloride Level 108 MEQ/L Carbon Dioxide Level 20.8 MEQ/L Anion Gap 10 MEQ/L Blood Urea Nitrogen 14 MG/DL Creatinine 0.65 MG/DL Estimat Glomerular Filtration 96 ML/MIN Rate Random Glucose 92 MG/DL Calcium Level 8.8 MG/DL Total Bilirubin 0.2 MG/DL Aspartate Amino Transf 13 U/L (AST/SGOT) Alanine Aminotransferase 19 U/L (ALT/SGPT) Alkaline Phosphatase 87 U/L Total Protein 7.1 GM/DL Albumin 3.5 GM/DL Urine Opiates Screen NEG Acetaminophen Level LESS THAN 2.0 MCG/ML Urine Barbiturates Screen NEG Urine Amphetamines Screen NEG Urine Benzodiazepines Screen NEG Urine Cocaine Screen NEG Urine Cannabinoids Screen NEG Ethyl Alcohol Level 317 MG/DL [facility] Medical Decision Making Medical Screen Exam Complete: Yes Emergency Medical Condition: Yes Medical Record Reviewed: Yes Differential Diagnosis Alcohol withdrawal, acute alcohol intoxication, alcoholism, toxic alcohol ingestion Narrative Course CBC & BMP Diagram 01/14/17 20:25 Drug screen is negative. Alcohol level is 317. The patient is medically clear. When the patient is ambulatory with a normal gait and a and O 3 she can go home with an adult pocket closer. Diagnosis Primary Impression: Acute alcohol intoxication Qualified Code: F10.920 - Acute alcohol intoxication, uncomplicated Referrals: [facility] Additional Instructions: PLEASE GO TO [facility] AT 730AM TOMORROW SCHEDULED. Disposition: 01 DISCHARGE HOME Condition: Stable Mike Irvin MD Jan 14, 2017 21:52
== END 2017-01-15 03:22 | disposition home or self-care (01) ==
LOC: NEPD 20:00
DX: F10.129 Alcohol abuse with intoxication, unspecified (principal); R11.10 Vomiting, unspecified; F41.9 Anxiety disorder, unspecified; F32.9 Major depressive disorder, single episode, unspecified; K21.9 Gastro-esophageal reflux disease without esophagitis; Z79.899 Other long term (current) drug therapy
CPT/HCPCS: 80053; 80307; 85025; 96374; 99284; J2405